=== PATIENT | female | born 1955 | race Caucasian/White ===

== ENCOUNTER → 2017-06-12 12:39 | Outpatient (CLI) | payer MEDICARE, SELFPAY ==
[2017-06-12 13:03] LABS: Basophils # 0.1 K/mm3 (0-0.2); Eosinophils # 0.2 K/mm3 (0.0-0.4); Eosinophils % 2.9 % (0.1-12.0); Hemoglobin 12.9 g/dL (12.2-16.2); Lymphocytes # 1.7 K/mm3 (0.7-4.5); Lymphocytes % 26.8 K/mm3 (10-50); Mean Corpuscular HGB Conc 33.8 g/dL (31.8-35.4); Mean Corpuscular Hemoglobin 30.5 pg (27.0-31.2); Mean Platelet Volume 7.8 fl (7.4-10.4); Monocytes # 0.3 K/mm3 (0.1-1.0); Monocytes % 4.5 % (1.7-9.3); Neutrophils # 4.1 K/mm3 (1.8-7.8); Neutrophils % 64.9 % (37.0-80.0); Platelet Count 270 K/mm3 (142-424); Red Blood Count 4.22 M/mm3 (4.20-5.40); Red Cell Distribution Width 13.1 % (11.5-17.5); White Blood Count 6.3 K/mm3 (4.8-10.8)
[2017-06-12 14:07] LABS: Alanine Aminotransferase 29 U/L (12-78); Albumin Level 3.7 gm/dL (3.4-5.0); Albumin/Globulin Ratio 1.1 (1.1-1.8); Alkaline Phosphatase 114 U/L (46-116); Anion Gap 10.7 mEq/L (5-15); Aspartate Amino Transferase 17 U/L (15-37); Bilirubin,Total 0.3 mg/dL (0.2-1.0); Blood Urea Nitrogen 16 mg/dL (7-18); Calcium 8.6 mg/dL (8.5-10.1); Carbon Dioxide 29 mmol/L (21.0-32.0); Chloride 108 mmol/L (98-107); Chol/HDL Ratio 2.8 (1-3.5); Cholesterol 206 mg/dL (140-200); Creatinine,Serum 0.66 mg/dL (0.55-1.02); Estimated Glomerular Filt Rate 91 ml/min (>60); GFR (African American) 111 ML/MIN (>60); Globulin 3.3 gm/dl (1.3-3.2); Glucose 93 mg/dL (74-106); HDL Cholesterol 74 mg/dL (29-89); LDL Cholesterol 124 mg/dL (0-130); Potassium 3.7 mmoL/L (3.5-5.1); Sodium 144 mmol/L (136-145); Thyroid Stimulating Hormone 1.95 uIU/ml (0.358-3.740); Triglycerides 39 mg/dL (30-200); VLDL Cholesterol 8 mg/dL (0-40)
[2017-06-13 11:13] LABS: Vitamin B12 373 pg/mL (232-1245); Vitamin D 25 Hydroxy 30.3 ng/mL (30.0-100.0)
== END ==
PROVIDERS: PCP Nurse Practitioner Family; Visit Provider Nurse Practitioner Family
DX: R53.83 Other fatigue (principal); E53.8 Deficiency of other specified B group vitamins; Z00.00 Encounter for general adult medical examination without abnormal findings
CPT/HCPCS: 36415; 80053; 80061; 82607; 82652; 84443; 85025

== ENCOUNTER → 2017-06-17 09:27 | Outpatient (CLI) | payer MEDICARE, SELFPAY ==
--- NOTE | 2017-06-17 09:34 | MM_ITS ---
MM Dig screening mamm BI w/CAD CAD Screening COMPARISON: None, there have been previous mammograms at [facility] but they're not available for comparison at this time INDICATION: There is no personal or family history of breast cancer TECHNIQUE: Standard CC and MLO images were obtained. R2 CAD reviewed. FINDINGS: Mild scattered fibroglandular densities are seen in the subareolar regions of both breast and the findings are bilateral and symmetrical. There is no suspicious lesion and no suspicious microcalcifications. IMPRESSION: Fibrofatty parenchyma with no suspicious lesion seen BI-RADS Category: 1 Negative RECOMMENDED FOLLOW-UP: 1YR - 1 YEAR FOLLOW-UP (A letter has been sent to the patient regarding results of the study.)
== END ==
PROVIDERS: PCP Nurse Practitioner Family; Visit Provider Nurse Practitioner Family
DX: Z12.31 Encounter for screening mammogram for malignant neoplasm of breast (principal)
CPT/HCPCS: 77067

== ENCOUNTER 2017-07-30 11:32 | Emergency (ER) | payer MEDICARE, SELFPAY ==
[2017-07-30 11:43] VITALS: BP 116/60; PULSE 106; RESP 20; TEMP 37.2; O2SAT 97; BMI 18.8
[2017-07-30 11:54] LABS: UTC Strep Screen (Rapid) Negative (Negative)
[2017-07-30 12:02] LABS: UTC Influenza A Antigen Negative (Negative); UTC Influenza B Antigen Negative (Negative)
--- NOTE | 2017-07-30 12:06 | HMH.EDUTC ---
[facility] Disposition Clinical Impression: Viral upper respiratory illness Disposition: Home, Self-Care Condition on Discharge: Good Instructions: DI for Viral Upper Respiratory Infection -- Adult Additional Instructions: * No sign of bacterial infection. Likely viral. Virus can take 7-14 days to run their course * Nasal Saline to remove nasal drainage and help with nasal congestion. Hard to eat, drink, sleep with nasal congestion so important to keep nose cleaned out * Monitor Temp. Tylenol every 4 hours as needed no more then 5 times a day or 4000mg in 24 hours and/or ibuprofen every 6 hours as needed no more then 3200mg in 24 hours (as long as your primary care doctor has told you that it is ok to take both) for fever/aches/pain. ER if fever no less than 101 despite tylenol and ibuprofen * Encourage fluids, water, gatorade, powerade, pedialyte if /toddler/child * warm salt water gargles * warm fluids * sore throat lozenges * sleep elevated * humidifier/vaporizer * Bromfed may cause drowsiness. Know how it effects you (or your child) before driving, caring for small children, or sending your child to school. No other antihistamines/allergy medications while taking bromfed. * * Your throat swab was sent for culture. Those results are typically sent to your primary care. Be sure to follow up in 2-3 days if no improvement so they can review those results and treat if necessary. If you don't have primary care, I recommend you get one but in the mean time, you will have to return to a walk in clinic. Prescriptions: Brompheniramine/Pseudoephed/Dm [Bromfed DM Cough Syrup 5mL] 10 ml PO QID PRN #240 ml PRN Reason: Cough Referrals: Daya Ricardo APRN [Primary Care Provider] - (Follow up IMMEDIATELY for new or worsening symptoms OR no noticeable improvement over the next 72 hours. 911 for difficulty breathing or swallowing) Time of Disposition: 12:15 Medical Decision Making - Marc Inquiry Pt receiving controlled substance: No Vital Signs: 07/30/17 11:43 Temperature 99 F Temperature Source Temporal Artery Scan Pulse Rate [Brachial] 106 H Respiratory Rate 20 Blood Pressure [Right Arm] 116/60 Blood Pressure Mean [Right Arm] 78 02 Sat by Pulse Oximetry 97 - Lab Data Lab results reviewed: Yes: I reviewed the patient's lab results. Lab Results 07/30/17 11:48: Influenza Type A Ag Negative, Influenza Type B Ag Negative, Strep Scn Rapid Clinic Negative Orders (Tests/Meds): ORDERS Category Date Time Status Strep Screen Confirmation Stat Micro 07/30/17 11:48 Received [facility] HPI - General Stated complaint: Coughing;Sore Throat; Earache Time Seen by Provider: 07/30/17 12:07 Mode of Arrival: Ambulatory Source of Information: Patient Limitations: No Limitations Description of Symptoms (Recalled from Triage Doc. by RN): PAST FEW DAYS BODY ACHES, CHILLS, HOARSE, SORE THROAT, NASAL DRAINAGE, COUGHING THAT GETS WORSE AT NIGHT. HEENT Symptoms (Recalled from RN notes): Yes Resp Symptoms (Recalled from RN notes): Yes Skin Symptoms (Recalled from RN notes): No MS Symptoms (Recalled from RN notes): No Functional Status (Recalled from RN notes): NA - History of Present Illness Provider Complaint: c/o nonprod cough, aches, chills, PND, sore throat, congestion. Started 2-3 days ago. Cough worse at night. No known sick contacts. tylenol arthritis helps w/ aches and feeling feverish. Hasn't checked temp. - Related Data Previous Rx's Medication Instructions Recorded Brompheniramine/Pseudoephed/Dm 10 ml PO QID PRN #240 ml 07/30/17 [Bromfed DM Cough Syrup 5mL] Allergies Allergy/AdvReac Type Severity Reaction Status Date / Time From [facility] Allergy Severe S-DIFF. Uncoded 04/29/17 15:02 BREATHING CODEINE Allergy Intermediate I-RASH Uncoded 04/29/17 15:02 - Worker's Comp Is this a Worker's Comp case?: No [facility] History I have reviewed the patient's past medical history: Yes Medical History: Denies::
--- NOTE | 2017-07-30 12:13 | ED_ITS ---
[facility] [place] Impression: Viral upper respiratory illness Disposition: Home, Self-Care Condition on Discharge: Good Instructions: DI for Viral Upper Respiratory Infection -- Adult Additional Instructions: * No sign of bacterial infection. Likely viral. Virus can take 7-14 days to run their course * Nasal Saline to remove nasal drainage and help with nasal congestion. Hard to eat, drink, sleep with nasal congestion so important to keep nose cleaned out * Monitor Temp. Tylenol every 4 hours as needed no more then 5 times a day or 4000mg in 24 hours and/or ibuprofen every 6 hours as needed no more then 3200mg in 24 hours (as long as your primary care doctor has told you that it is ok to take both) for fever/aches/pain. ER if fever no less than 101 despite tylenol and ibuprofen * Encourage fluids, water, gatorade, powerade, pedialyte if infant/toddler/ child * warm salt water gargles * warm fluids * sore throat lozenges * sleep elevated * humidifier/vaporizer * Bromfed may cause drowsiness. Know how it effects you (or your child) before driving, caring for small children, or sending your child to school. No other antihistamines/allergy medications while taking bromfed. * * Your throat swab was sent for culture. Those results are typically sent to your primary care. Be sure to follow up in 2-3 days if no improvement so they can review those results and treat if necessary. If you don't have primary care , I recommend you get one but in the mean time, you will have to return to a walk in clinic. Prescriptions: Brompheniramine/Pseudoephed/Dm [Bromfed DM Cough Syrup 5mL] 10 ml PO QID PRN # 240 ml PRN Reason: Cough Referrals: Daya Ricardo APRN [Primary Care Provider] - (Follow up IMMEDIATELY for new or worsening symptoms OR no noticeable improvement over the next 72 hours. 911 for difficulty breathing or swallowing) Time of Disposition: 12:15 Medical Decision Making - Marc Inquiry Pt receiving controlled substance: No Vital Signs: 07/30/17 11:43 Temperature 99 F Temperature Source Temporal Artery Scan Pulse Rate [Brachial] 106 H Respiratory Rate 20 Blood Pressure [Right Arm] 116/60 Blood Pressure Mean [Right Arm] 78 02 Sat by Pulse Oximetry 97 - Lab Data Lab results reviewed: Yes: I reviewed the patient's lab results. Lab Results 07/30/17 11:48: Influenza Type A Ag Negative, Influenza Type B Ag Negative, Strep Scn Rapid Clinic Negative Orders (Tests/Meds): ORDERS Category Date Time Status Strep Screen Confirmation Stat Micro 07/30/17 11:48 Received [facility] [place] - General Stated complaint: Coughing;Sore Throat; Earache Time Seen by Provider: 07/30/17 12:07 Mode of Arrival: Ambulatory Source of Information: Patient Limitations: No Limitations Description of Symptoms (Recalled from Triage Doc. by RN): PAST FEW DAYS BODY ACHES, CHILLS, HOARSE, SORE THROAT, NASAL DRAINAGE, COUGHING THAT GETS WORSE AT NIGHT. HEENT Symptoms (Recalled from RN notes): Yes Resp Symptoms (Recalled from RN notes): Yes Skin Symptoms (Recalled from RN notes): No MS Symptoms (Recalled from RN notes): No Functional Status (Recalled from RN notes): NA - History of Present Illness Provider Complaint: c/o nonprod cough, aches, chills, PND, sore throat, congestion. Started 2-3 days ago. Cough worse at night. No known sick contacts. tylenol arthritis helps w/ aches and feeling feverish. Hasn't checked temp. - Related Data Previous Rx's
[2017-07-30 12:16] VITALS: BP 116/64; PULSE 76; RESP 18; TEMP 37
== END 2017-07-30 12:22 | disposition home or self-care (01) ==
PROVIDERS: Emergency Provider Nurse Practitioner Family; PCP Nurse Practitioner Family
DX: J06.9 Acute upper respiratory infection, unspecified (principal); Z88.6 Allergy status to analgesic agent
CPT/HCPCS: G0463; 87804; 87880; 99202

== ENCOUNTER → 2018-03-16 13:14 | Outpatient (CLI) | payer MEDICARE, SELFPAY ==
[2018-03-16 13:55] LABS: Basophils # 0.1 K/mm3 (0-0.2); Basophils % 1.2 % (0.1-2.0); Eosinophils # 0.3 K/mm3 (0.0-0.4); Eosinophils % 3.7 % (0.1-12.0); Hemoglobin 13.2 g/dL (12.2-16.2); Lymphocytes # 1.7 K/mm3 (0.7-4.5); Lymphocytes % 25.2 K/mm3 (10-50); Mean Corpuscular HGB Conc 32.3 g/dL (31.8-35.4); Mean Corpuscular Hemoglobin 30.7 pg (27.0-31.2); Mean Corpuscular Volume 94.9 fl (81-99); Mean Platelet Volume 8.3 fl (7.4-10.4); Monocytes # 0.3 K/mm3 (0.1-1.0); Monocytes % 4.3 % (1.7-9.3); Neutrophils # 4.4 K/mm3 (1.8-7.8); Neutrophils % 65.6 % (37.0-80.0); Platelet Count 298 K/mm3 (142-424); Red Blood Count 4.32 M/mm3 (4.20-5.40); Red Cell Distribution Width 13.1 % (11.5-17.5); White Blood Count 6.7 K/mm3 (4.8-10.8)
[2018-03-16 19:42] LABS: Alanine Aminotransferase 17 U/L (12-78); Albumin Level 3.7 gm/dL (3.4-5.0); Albumin/Globulin Ratio 1.1 (1.1-1.8); Alkaline Phosphatase 131 U/L (46-116); Anion Gap 13.4 mEq/L (5-15); Aspartate Amino Transferase 18 U/L (15-37); Bilirubin,Total 0.3 mg/dL (0.2-1.0); Blood Urea Nitrogen 22 mg/dL (7-18); Calcium 8.9 mg/dL (8.5-10.1); Carbon Dioxide 27 mmol/L (21.0-32.0); Chloride 105 mmol/L (98-107); Creatinine,Serum 0.62 mg/dL (0.55-1.02); Estimated Glomerular Filt Rate 98 ml/min (>60); GFR (African American) 118 ML/MIN (>60); Globulin 3.5 gm/dl (1.3-3.2); Glucose 87 mg/dL (74-106); Potassium 4.4 mmoL/L (3.5-5.1); Sodium 141 mmol/L (136-145); Thyroid Stimulating Hormone 1.64 uIU/ml (0.358-3.740); Total Protein,Serum 7.2 gm/dL (6.4-8.2)
[2018-03-17 08:34] LABS: Iron 103 ug/dL (27-139); UIBC 181 ug/dL (118-369)
[2018-03-18 12:37] LABS: Iron Saturation 36 % (15-55); Vitamin D 25 Hydroxy 32.7 ng/mL (30.0-100.0)
== END ==
PROVIDERS: PCP Physician Assistant; Visit Provider Physician Assistant
DX: M79.7 Fibromyalgia (principal); D64.9 Anemia, unspecified; D51.9 Vitamin B12 deficiency anemia, unspecified; R91.1 Solitary pulmonary nodule; R10.11 Right upper quadrant pain
CPT/HCPCS: 80053; 82652; 83540; 83550; 84436; 84443; 85025

== ENCOUNTER → 2018-03-26 08:58 | Outpatient (CLI) | payer MEDICARE, SELFPAY ==
--- NOTE | 2018-03-26 09:00 | US_ITS ---
US abdomen limited History:Right upper quadrant pain Ordering Physician:JENNY Torres Patient Age: 62 years Comparison:None Findings: Pancreas:Unremarkable. No obvious mass or abnormal fluid collection. No ductal dilatation Liver:No focal liver lesions demonstrated. Homogeneous echogenicity. No intrahepatic biliary ductal dilatation evident Right Kidney:Unremarkable. Normal size and echogenicity. No hydronephrosis Gallbladder:15 mm stone is present in the fundus of the gallbladder. No gallbladder wall thickening, pericholecystic fluid, or biliary dilatation is evident. Impression:Cholelithiasis
--- NOTE | 2018-03-26 09:00 | CT_ITS ---
CT chest w con HISTORY: ITS.REASON: SHAY nodule ORDERING PHYSICIAN: JENNY Torres PATIENT AGE: 62 years COMPARISON: 10/01/2017 TECHNIQUE: Axial images obtained following the administration of 75 mL of Isovue 370 . Sagittal, and coronal reformatted images are also generated and reviewed. All CT scans at the facility use one or more dose reduction, viz: automated exposure control, ma/kV adjustment per patient size (including targeted exams where dose is matched to indication, i.e. head), or iterative reconstruction technique. FINDINGS: No mediastinal or hilar mass or adenopathy. No evidence of aortic aneurysm or central pulmonary embolus. There are scattered bilateral pulmonary nodular opacities most of which are calcified or partially calcified. Biapical fibronodular changes are present. 4 mm noncalcified nodule in the right upper lobe and a 5 mm noncalcified nodule in the right middle lobe. There are atelectatic or fibrotic changes in the right middle lobe, right upper lobe, and superior segment right lower lobe. There is a bilobular 6 mm nodule right lower lobe noncalcified. Noncalcified 4 mm nodules present in the left lower lobe. No effusions are evident. Upper abdominal images demonstrates a 8 mm hypodense lesion of the right hepatic lobe nonspecific. No acute bony anomalies. Incidental note is made of mild stenosis of the ostium of the celiac and SMA arteries. IMPRESSION: 1. There are multiple bilateral pulmonary nodular opacities most of which are calcified or partially calcified. Several noncalcified pulmonary nodules are also present. These may very well be benign. Six-month follow-up is suggested 2. Scattered areas of parenchymal fibrosis/atelectatic change with biapical fibronodular changes
== END ==
PROVIDERS: PCP Physician Assistant; Visit Provider Physician Assistant
DX: R10.11 Right upper quadrant pain (principal); R91.8 Other nonspecific abnormal finding of lung field
CPT/HCPCS: 71260; 76705; Q9967

== ENCOUNTER → 2018-04-21 11:28 | Outpatient (CLI) | payer MEDICARE, SELFPAY ==
[2018-04-21 11:47] LABS: Basophils # 0.1 K/mm3 (0-0.2); Eosinophils # 0.2 K/mm3 (0.0-0.4); Eosinophils % 3.5 % (0.1-12.0); Hematocrit 40.4 % (37.0-47.0); Hemoglobin 13.5 g/dL (12.2-16.2); Lymphocytes % 29.8 % (10-50); Mean Corpuscular HGB Conc 33.5 g/dL (31.8-35.4); Mean Corpuscular Hemoglobin 30.9 pg (27.0-31.2); Mean Corpuscular Volume 92.4 fl (81-99); Mean Platelet Volume 7.6 fl (7.4-10.4); Monocytes # 0.3 K/mm3 (0.1-1.0); Monocytes % 4.6 % (1.7-9.3); Neutrophils # 4.2 K/mm3 (1.8-7.8); Neutrophils % 61.1 % (37.0-80.0); Platelet Count 243 K/mm3 (142-424); Red Blood Count 4.37 M/mm3 (4.20-5.40); Red Cell Distribution Width 12.8 % (11.5-17.5); White Blood Count 6.8 K/mm3 (4.8-10.8)
[2018-04-21 12:32] LABS: Alanine Aminotransferase 18 U/L (12-78); Albumin Level 3.6 gm/dL (3.4-5.0); Albumin/Globulin Ratio 1.1 (1.1-1.8); Alkaline Phosphatase 125 U/L (46-116); Anion Gap 14.7 mEq/L (5-15); Aspartate Amino Transferase 12 U/L (15-37); Bilirubin,Total 0.2 mg/dL (0.2-1.0); Blood Urea Nitrogen 27 mg/dL (7-18); Calcium 8.8 mg/dL (8.5-10.1); Carbon Dioxide 26 mmol/L (21.0-32.0); Chloride 107 mmol/L (98-107); Creatinine,Serum 0.85 mg/dL (0.55-1.02); Estimated Glomerular Filt Rate 68 ml/min (>60); GFR (African American) 82 ML/MIN (>60); Globulin 3.3 gm/dl (1.3-3.2); Glucose 79 mg/dL (74-106); Potassium 3.7 mmoL/L (3.5-5.1); Sodium 144 mmol/L (136-145); Total Protein,Serum 6.9 gm/dL (6.4-8.2)
== END ==
PROVIDERS: Visit Provider Surgery
DX: K80.20 Calculus of gallbladder without cholecystitis without obstruction (principal)
CPT/HCPCS: 36415; 80053; 85025; 93005

== ENCOUNTER → 2018-06-15 11:18 | Outpatient (CLI) | payer MEDICARE, SELFPAY ==
--- NOTE | 2018-06-15 11:21 | XR_ITS ---
XR chest 2V HISTORY: ITS.REASON: persistent cough ORDERING PHYSICIAN: JENNY Torres PATIENT AGE: 62 years COMPARISON: 10/01/2017 FINDINGS: The cardiomediastinal silhouette and pulmonary vascularity are within normal limits. Chronic changes noted with biapical pleural thickening and hyperinflation. No lobar consolidation or collapse. No acute bony findings. IMPRESSION: COPD, no acute finding
== END ==
PROVIDERS: PCP Physician Assistant; Visit Provider Physician Assistant
DX: R05 Cough (principal); R09.89 Other specified symptoms and signs involving the circulatory and respiratory systems
CPT/HCPCS: 71046

== ENCOUNTER → 2018-09-09 08:06 | Outpatient (CLI) | payer MEDICARE, SELFPAY ==
--- NOTE | 2018-09-09 08:11 | US_ITS ---
US abdomen limited History:Right upper quadrant pain Ordering Physician:JENNY Lpoez Patient Age: 63 years Comparison:05/26/2017 Findings: Pancreas:Unremarkable. No obvious mass or abnormal fluid collection. No ductal dilatation Liver:Unremarkable. No obvious mass or abnormal fluid collection. No ductal dilatation. There is a small area of increased echogenicity within the common bile duct. No ductal dilatation. However, one cannot exclude the possibility of a small stone. Right Kidney:Unremarkable. Normal size and echogenicity. No hydronephrosis Gallbladder: Status post cholecystectomy. Common bile duct 2 mm. IMPRESSION: 1. Status post cholecystectomy. 2. Normal size common bile duct with small focal area of increased echogenicity within the common bile duct raising the question of a small stone or sludge. MRCP may be of further value.
== END ==
PROVIDERS: PCP Physician Assistant; Visit Provider Physician Assistant
DX: R10.11 Right upper quadrant pain (principal)
CPT/HCPCS: 76705

== ENCOUNTER → 2018-09-17 08:35 | Outpatient (CLI) | payer MEDICARE, SELFPAY ==
--- NOTE | 2018-09-17 08:37 | MR_ITS ---
MR abdomen wo con, MR 3-d myelogram/MRCP CLINICAL INDICATION: Right upper quadrant pain, prior cholecystectomy, diarrhea ITS.REASON: MRCP ORDERING PHYSICIAN: JENNY Lopez PATIENT AGE: 63 years Comparison: None TECHNIQUE: Routine multiplanar multiecho sequences are performed without contrast with MRCP sequences FINDINGS: There is a small T2 hyperintensity involving the hepatic dome laterally at 8 mm. This is categorized. The remaining liver has an unremarkable appearance. No intrahepatic ductal dilatation is evident., Adrenal glands, and pancreas have an unremarkable appearance no renal abnormality apparent. There has been prior cholecystectomy. No biloma or abscess apparent. Small cyst is present along the lower pole the left kidney at 8 mm MRCP images show slightly generous common bile duct measured at 8 mm. No filling defects are evident within the common duct. Pancreatic duct also has an unremarkable appearance. IMPRESSION: 1. Status post cholecystectomy 2. No evidence of common duct stone. Common bile duct is slightly prominent but may be related to ectasia from previous cholecystectomy. 3. Indeterminate T2 hyperintensity in the hepatic dome. This may be better evaluated with CT if clinically desired
== END ==
PROVIDERS: PCP Physician Assistant; Visit Provider Physician Assistant
DX: R10.11 Right upper quadrant pain (principal)
CPT/HCPCS: 74181; 76376

== ENCOUNTER → 2018-10-12 13:24 | Outpatient (CLI) | payer MEDICARE, SELFPAY ==
--- NOTE | 2018-10-12 13:26 | CT_ITS ---
CT chest wo con HISTORY: Follow-up pulmonary nodule ITS.REASON: pulmonary nodules/ 6 mth f/u ORDERING PHYSICIAN: JENNY Lopez PATIENT AGE: 63 years COMPARISON: 03/26/2018 Technique: Axial images obtained. Sagittal, and coronal reformatted images are also generated and reviewed. All CT scans at the facility use one or more dose reduction, viz: automated exposure control, ma/kV adjustment per patient size (including targeted exams where dose is matched to indication, i.e. head), or iterative reconstruction technique. FINDINGS No mediastinal or hilar adenopathy. Coronary artery calcifications are present. There are changes of COPD with scattered calcified nodules and scarring once again noted with hyperinflation. There are scattered parenchymal opacities noted which are stable. No new suspicious nodules identified. No infiltrates or effusions. IMPRESSION: 1. Overall stable CT appearance of the chest 2. Scattered calcified and noncalcified pulmonary nodules once again noted which do not appear significantly changed along with COPD and scattered areas of scarring. Recommend [address] follow-up
== END ==
PROVIDERS: PCP Physician Assistant; Visit Provider Physician Assistant
DX: R91.8 Other nonspecific abnormal finding of lung field (principal)
CPT/HCPCS: 71250

== ENCOUNTER 2020-02-19 10:51 | Emergency (ER) | payer MEDICARE, SELFPAY ==
[2020-02-19 11:15] VITALS: BP 115/50; PULSE 76; RESP 20; TEMP 36.8; O2SAT 96; BMI 20.5
--- NOTE | 2020-02-19 11:28 | HMH.EDUTC ---
[facility] [place] Disposition Clinical Impression: Laryngitis Disposition: Home, Self-Care Condition on Discharge: Good Instructions: DI for Laryngitis Additional Instructions: start antibiotics today be sure to take it as ordered with the full length of time although you should start feeling better in 24-48 hours. Change toothbrush and toothpaste 24-48 hours after starting antibiotics Tylenol or Motrin as needed for fever or pain Encourage fluids, water, Gatorade, Powerade, try cold fluids, popsicles, ice cream will make it feel better You are contagious for 24 hours. Avoid kissing anyone, no eating or drinking after anyone. You are contagious. Follow-up the ER for new or worsening symptoms or no noticeable improvement over the next 24-48 hours. Follow-up with PCP this week. Prescriptions: predniSONE [Prednisone 20mg Tab] 20 mg PO BID #10 tab Prescription Printed Azithromycin [Zithromax 250mg tab] 250 mg PO DIRECTED #6 tab Prescription Printed Referrals: PCP,No [Primary Care Provider] - Time of Disposition: 11:47 Medical Decision Making - Marc Inquiry Pt receiving controlled substance: No Vital Signs: 02/19/20 11:15 Temperature 98.2 F Temperature Source Oral Pulse Rate [Left Brachial] 76 Respiratory Rate 20 Blood Pressure [Left Arm] 115/50 L Blood Pressure Mean [Left Arm] 71 Blood Pressure Source [Left Arm] Automatic Cuff Blood Pressure Position [Left Arm] Sitting 02 Sat by Pulse Oximetry 96 Oxygen Delivery Method Room Air [facility] [place] HPI - General Chief complaint: Urgent [facility] Stated complaint: loss voice Time Seen by Provider: 02/19/20 11:28 Mode of Arrival: Ambulatory Source of Information: Patient Limitations: No Limitations Description of Symptoms (Recalled from Triage Doc. by RN): PATIENT C/O SCRATCHY THROAT AND LOST VOICE SINCE YESTERDAY HEENT Symptoms (Recalled from RN notes): Yes Resp Symptoms (Recalled from RN notes): No Skin Symptoms (Recalled from RN notes): No MS Symptoms (Recalled from RN notes): No Functional Status (Recalled from RN notes): WNL - History of Present Illness Provider Complaint: 64 yr old female presents for sore throat, and lost voice since yesterday, pt states grandchild also sick. denies any other symptoms. - Related Data Previous Rx's Medication Instructions Recorded Azithromycin [Zithromax 250mg 250 mg PO DIRECTED #6 tab 02/19/20 tab] predniSONE [Prednisone 20mg 20 mg PO BID #10 tab 02/19/20 Tab] Allergies Allergy/AdvReac Type Severity Reaction Status Date / Time amoxicillin [From Augmentin] Allergy Verified 02/19/20 11:18 cimetidine [From Tagamet] Allergy Verified 08/11/18 11:10 clavulanic acid Allergy Verified 02/19/20 11:18 [From Augmentin] codeine Allergy Verified 08/11/18 11:10 Penicillins Allergy Verified 08/11/18 11:10 - Worker's Comp Is this a Worker's Comp case?: No [facility] History - Hepatitis A Screen Drug use history?: No High risk sexual behaviors?: No History of sexually transmitted infection?: No Currently employed?: No Childcare worker?: No Do you have indoor plumbing?: Yes Do you have electricity?: Yes Attestation statement:: This patient has been screened for Hepatitis A risk factors. I have reviewed the patient's past medical history: Yes Medical History: Reports:: Anxiety, Depression Denies:: Cancer, Chronic Obstructive Pulmonary Disease (COPD), Diabetes Mellitus Type 1, Diabetes Mellitus Type 2, Hypertension, MRSA, Seizures Other Medical History: Denies: Blood Transfusion Reaction Laterality Cases: Bilateral: Tonsillectomy Other Surgeries: Yes: No Previous Surgery, Cholecystectomy Amputation: No Fractures: No - Social History Smoking Status: Never smoker Alcohol Intake: never Substance Use Type: denies use Occupational Status: other - Psychiatric History Pschychiatric History:: Reports:: Anxiety, Depression Family Hx:: No significant family history ROS Obtain
[2020-02-19 11:49] VITALS: BP 115/50; PULSE 76; RESP 20; TEMP 36.8; O2SAT 96
[2020-02-19 19:05] LABS: UTC Strep Screen (Rapid) Negative (Negative)
== END 2020-02-19 11:53 | disposition home or self-care (01) ==
PROVIDERS: Emergency Provider Nurse Practitioner Family; PCP Physician Assistant
DX: J04.0 Acute laryngitis (principal); F41.8 Other specified anxiety disorders; Z88.0 Allergy status to penicillin; Z88.5 Allergy status to narcotic agent
CPT/HCPCS: G0463; 87880; 99201

== ENCOUNTER 2020-04-27 14:18 | Emergency (ER) | payer MEDICARE, SELFPAY ==
[2020-04-27 14:40] VITALS: BP 102/64; PULSE 77; RESP 18; TEMP 36.9; O2SAT 96; BMI 20.5
--- NOTE | 2020-04-27 15:05 | HMH.EDUTC ---
[facility] [place] Impression: URI (upper respiratory infection) Qualifiers: URI type: unspecified URI Qualified Code(s): J06.9 - Acute upper respiratory infection, unspecified Disposition: Home, Self-Care Condition on Discharge: Good Instructions: Sore Throat, DI for Cough -- Adult Additional Instructions: *Monitor Temp, Over the counter Motrin or Tylenol as directed/as needed Tylenol every 4 hours and Motrin every 6 hours (as long as your family doctor has told you that you can take it) for fever or pain. and straight to ER if unable to lower temp less than 101.0 after medication given *Warm salt water gargles may help to soothe the throat *Throat Lozenges *Warm fluids like tea with honey may help to soothe the throat *Sleep elevated *Humidifier/Vaporizer Follow up IMMEDIATELY for new or worsening symptoms or no Noticeable improvement over the next 48-72 hours. 911 for difficulty breathing or swallowing Prescriptions: methylPREDNISolone [Medrol 4mg tab] 4 mg PO DIRECTED #21 tab Transmission Status: Pending to [id number] Azithromycin [Z-Lai 250mg Tab] 250 mg PO DIRECTED #6 tab Transmission Status: Pending to [id number] Referrals: [facility] [Primary Care Provider] - Medical Decision Making - Marc Inquiry Pt receiving controlled substance: No Marc was queried for this patient: No Vital Signs: 04/27/20 14:40 Temperature 98.4 F Temperature Source Oral Pulse Rate [Right Brachial] 77 Respiratory Rate 18 Blood Pressure [Right Arm] 102/64 L Blood Pressure Mean [Right Arm] 76 Blood Pressure Source [Right Arm] Automatic Cuff Blood Pressure Position [Right Arm] Sitting 02 Sat by Pulse Oximetry 96 Oxygen Delivery Method Room Air Medical Decision Narrative: Patient states that she has taken azithromycin and medrol dose pack before without complications or reactions [facility] [place] - General Stated complaint: lost voice body aches Time Seen by Provider: 04/27/20 15:06 Mode of Arrival: Ambulatory Source of Information: Patient Limitations: No Limitations Description of Symptoms (Recalled from Triage Doc. by RN): PATIENT C/O SORE THROAT AND LOST VOICE SINCE LAST NIGHT HEENT Symptoms (Recalled from RN notes): Yes Resp Symptoms (Recalled from RN notes): No Skin Symptoms (Recalled from RN notes): No MS Symptoms (Recalled from RN notes): No Functional Status (Recalled from RN notes): WNL - History of Present Illness Provider Complaint: Patient states that she has been having sore and scratchy throat for several days and today she woke up and was unable to talk and still having sore scratchy throat so she come in to get checked - Related Data Previous Rx's Medication Instructions Recorded Azithromycin [Z-Lai 250mg Tab] 250 mg PO DIRECTED #6 tab 04/27/20 methylPREDNISolone [Medrol 4mg 4 mg PO DIRECTED #21 tab 04/27/20 tab] Allergies Allergy/AdvReac Type Severity Reaction Status Date / Time amoxicillin [From Augmentin] Allergy Verified 02/19/20 11:18 cimetidine [From Tagamet] Allergy Verified 08/11/18 11:10 clavulanic acid Allergy Verified 02/19/20 11:18 [From Augmentin] codeine Allergy Verified 08/11/18 11:10 Penicillins Allergy Verified 08/11/18 11:10 - Worker's Comp Is this a Worker's Comp case?: No [facility] History - Hepatitis A Screen Drug use history?: No High risk sexual behaviors?: No History of sexually transmitted infection?: No Currently employed?: No Childcare worker?: No Do you have indoor plumbing?: Yes Do you have electricity?: Yes Attestation statement:: This patient has been screened for Hepatitis A risk factors. I have reviewed the patient's past medical history: Yes Medical History: Reports:: Anxiety, Depression Denies:: Cancer, Chronic Obstructive Pulmonary Disease (COPD), Diabetes Mellitus Type 1, Diabetes Mellitus Type 2, Hypertension, MRSA, Seizures Other Medical History: Denies: Blood Transfusi
[2020-04-27 15:08] VITALS: BP 102/64; PULSE 77; RESP 18; TEMP 36.9; O2SAT 96
== END 2020-04-27 15:10 | disposition home or self-care (01) ==
PROVIDERS: Emergency Provider Nurse Practitioner
DX: J06.9 Acute upper respiratory infection, unspecified (principal); F41.8 Other specified anxiety disorders; Z88.0 Allergy status to penicillin
CPT/HCPCS: G0463; 99201

== ENCOUNTER 2020-05-20 16:11 | Emergency (ER) | payer MEDICARE, SELFPAY ==
[2020-05-20 16:25] VITALS: BP 121/83; PULSE 83; RESP 19; TEMP 36.8; O2SAT 100; BMI 20.5
--- NOTE | 2020-05-20 16:41 | HMH.EDUTC ---
[facility] [place] Clinical [place]ression: Urinary frequency Disposition: Home, Self-Care Condition on Discharge: Good Instructions: DI for Urinary Tract Infection (UTI) Additional Instructions: Follow up with with your Family Doctor if symptoms continue or immediately if any worsening of symptoms Return if needed Straight to ER if any life threatening symptoms Referrals: Virginia Barbosa PA [Primary Care Provider] - As needed Time of Disposition: 16:49 Medical Decision Making - Marc Inquiry Pt receiving controlled substance: No Marc was queried for this patient: No Vital Signs: 05/20/20 16:25 Temperature 98.2 F Temperature Source Oral Pulse Rate [Right Brachial] 83 Respiratory Rate 19 Blood Pressure [Right Arm] 121/83 Blood Pressure Mean [Right Arm] 95 Blood Pressure Source [Right Arm] Automatic Cuff Blood Pressure Position [Right Arm] Sitting 02 Sat by Pulse Oximetry 100 Oxygen Delivery Method Room Air - Lab Data Lab results reviewed: Yes: I reviewed the patient's lab results. [facility] [place] - General Stated complaint: frequency,feel bad Time Seen by Provider: 05/20/20 16:41 Mode of Arrival: Ambulatory Source of Information: Patient Limitations: No Limitations Description of Symptoms (Recalled from Triage Doc. by RN): PATIENT C/O URINARY FREQUENCY X 3 DAYS HEENT Symptoms (Recalled from RN notes): No Resp Symptoms (Recalled from RN notes): No Skin Symptoms (Recalled from RN notes): No MS Symptoms (Recalled from RN notes): No Functional Status (Recalled from RN notes): WNL - History of Present Illness Provider Complaint: Patient state that she feels like she is having urinary frequency for the last 3 days States that she was worried that she may have a UTI so she come in to get checked Denies fever denies body aches or abdominal pain - Related Data Previous Rx's Medication Instructions Recorded Azithromycin [Z-Lai 250mg Tab] 250 mg PO DIRECTED #6 tab 04/27/20 methylPREDNISolone [Medrol 4mg 4 mg PO DIRECTED #21 tab 04/27/20 tab] Allergies Allergy/AdvReac Type Severity Reaction Status Date / Time amoxicillin [From Augmentin] Allergy Verified 02/19/20 11:18 cimetidine [From Tagamet] Allergy Verified 08/11/18 11:10 clavulanic acid Allergy Verified 02/19/20 11:18 [From Augmentin] codeine Allergy Verified 08/11/18 11:10 Penicillins Allergy Verified 08/11/18 11:10 - Worker's Comp Is this a Worker's Comp case?: No [facility] History - Hepatitis A Screen Drug use history?: No High risk sexual behaviors?: No History of sexually transmitted infection?: No Currently employed?: No Childcare worker?: No Do you have indoor plumbing?: Yes Do you have electricity?: Yes Attestation statement:: This patient has been screened for Hepatitis A risk factors. I have reviewed the patient's past medical history: Yes Medical History: Reports:: Anxiety, Depression Denies:: Cancer, Chronic Obstructive Pulmonary Disease (COPD), Diabetes Mellitus Type 1, Diabetes Mellitus Type 2, Hypertension, MRSA, Seizures Other Medical History: Denies: Blood Transfusion Reaction Laterality Cases: Bilateral: Tonsillectomy Other Surgeries: Yes: No Previous Surgery, Cholecystectomy Amputation: No Fractures: No - Social History Smoking Status: Never smoker Alcohol Intake: never Substance Use Type: denies use Occupational Status: other - Psychiatric History Pschychiatric History:: Reports:: Anxiety, Depression Family Hx:: No significant family history ROS Obtained: Yes All systems reviewed & no additional complaints, Yes Systems reviewed as appropriate & no additional complaints - Constitutional Constitutional: Denies fever(s) - Gastrointestinal Gastrointestingal: Reports: system reviewed and no additional complaints, except as docu. Denies: abdominal pain - Genitourinary Female Genitourinary: Denies dysuria, Denies flank pain, Reports urinary frequency, Denies vaginal discharge, De
[2020-05-20 16:44] VITALS: BP 121/83; PULSE 83; RESP 19; TEMP 36.8; O2SAT 100
[2020-05-20 20:13] LABS: Apearance,Urine Clear (Clear); Color,Urine Yellow (Yellow)
[2020-05-20 20:14] LABS: Bilirubin,Urine Negative (Negative); Blood, Urine 1+ (Negative); Glucose,Urine (UA) Negative (Negative); Ketones,Urine Negative (Negative); Protein,Urine Negative (Negative); Specific Gravity, Urine 1.025 (1.005-1.030); UTC Leukocyte Esterase,Urine Negative (Negative); UTC Nitrate,Urine Negative (Negative); Urobilinogen,Urine 0.2 EU/dl (0.2)
== END 2020-05-20 16:45 | disposition home or self-care (01) ==
PROVIDERS: Emergency Provider Nurse Practitioner; PCP Physician Assistant
DX: R35.0 Frequency of micturition (principal); F41.8 Other specified anxiety disorders; Z88.0 Allergy status to penicillin; Z88.5 Allergy status to narcotic agent
CPT/HCPCS: G0463; 81003; 99202

== ENCOUNTER → 2020-06-08 17:55 | Outpatient (CLI) | payer MEDICARE, SELFPAY | PROVIDERS: Visit Provider Physician Assistant | DX: R53.83 Other fatigue (principal); N39.0 Urinary tract infection, site not specified | CPT/HCPCS: 87086; 87088; 87186 ==

== ENCOUNTER 2020-09-08 00:02 | Emergency (ER) | payer MEDICARE, SELFPAY ==
[2020-09-08 00:15] VITALS: BP 131/66; PULSE 86; RESP 20; TEMP 36.9; O2SAT 98; BMI 21.4
--- NOTE | 2020-09-08 00:26 | XR_ITS ---
PROCEDURE INFORMATION: Exam: XR Left Forearm Exam date and time: 09/08/2020 12:26 AM Age: 65 years old Clinical indication: Injury or trauma; Fall; Blunt trauma (contusions or hematomas); Arm, lower; Injury date: 09/07/2020; Injury details: Fell with outstretched arm to catch herself pain left wrist and left arm; Additional info: Fall w pain TECHNIQUE: Imaging protocol: XR Left forearm. Views: 2 views. COMPARISON: CR XR HUMERUS LT 09/08/2020 12:47 AM FINDINGS: Bones/joints: Acute intra-articular fracture of the distal radius. Acute fracture of the ulnar styloid. Soft tissue swelling about the distal forearm. Soft tissues: See Bones/joints finding. No radiopaque foreign body. IMPRESSION: Acute fractures of the distal radius and ulnar styloid. Refer to wrist radiographs performed on the same date.
--- NOTE | 2020-09-08 00:26 | XR_ITS ---
PROCEDURE INFORMATION: Exam: XR Left Elbow Exam date and time: 09/08/2020 12:26 AM Age: 65 years old Clinical indication: Injury or trauma; Fall; Blunt trauma (contusions or hematomas); Elbow; Injury date: 09/07/2020; Injury details: Fell with outstretched arm to catch herself pain left wrist and elbo; Additional info: Fall w/ pain TECHNIQUE: Imaging protocol: XR Left elbow. Views: 3 or more views. COMPARISON: CR XR HUMERUS LT 09/08/2020 12:47 AM FINDINGS: Bones/joints: No acute fracture, dislocation or osseous destructive process. Soft tissues: No acute finding or radiopaque foreign body. IMPRESSION: No acute findings.
--- NOTE | 2020-09-08 00:26 | XR_ITS ---
PROCEDURE INFORMATION: Exam: XR Left Humerus Exam date and time: 09/08/2020 12:26 AM Age: 65 years old Clinical indication: Injury or trauma; Fall; Blunt trauma (contusions or hematomas); Arm, upper; Injury date: 09/07/2020; Injury details: Fell with outstretched arm to catch herself pain left shoulder and wrist; Additional info: Fall w/ pain TECHNIQUE: Imaging protocol: XR Left humerus. Views: 2 or more views. COMPARISON: No relevant prior studies available. FINDINGS: Bones/joints: No acute fracture, dislocation or osseous destructive process. Soft tissues: No acute findings or radiopaque foreign body. IMPRESSION: No acute findings.
--- NOTE | 2020-09-08 00:26 | XR_ITS ---
PROCEDURE INFORMATION: Exam: XR Left Wrist Exam date and time: 09/08/2020 12:26 AM Age: 65 years old Clinical indication: Injury or trauma; Fall; Blunt trauma (contusions or hematomas); Injury date: 09/07/2020; Injury details: Fell with outstretched arm to catch herselft pain left wrist; Additional info: Fall w/pain TECHNIQUE: Imaging protocol: XR Left wrist. Views: 3 or more views. COMPARISON: No relevant prior studies available. FINDINGS: Bones/joints: Acute fracture of the ulnar styloid. Acute transversely oriented and intra-articular fracture through the distal radius with mild posterior displacement of the distal fragment. Soft tissues: No radiopaque foreign body. Soft tissue swelling about the wrist. IMPRESSION: Acute fractures of the distal radius and ulnar styloid as described.
--- NOTE | 2020-09-08 00:26 | XR_ITS ---
PROCEDURE INFORMATION: Exam: XR Left Shoulder Exam date and time: 09/08/2020 12:26 AM Age: 65 years old Clinical indication: Injury or trauma; Fall; Blunt trauma (contusions or hematomas); Injury date: 09/07/2020; Injury details: Fell with outstretched arm to catch herself pain left shoulder and wrist; Additional info: Fall w/ pain TECHNIQUE: Imaging protocol: XR Left shoulder. Views: 2 or more views. COMPARISON: No relevant prior studies available. FINDINGS: Bones/joints: No acute fracture, dislocation or osseous destructive process. Soft tissues: No acute findings or radiopaque foreign body. IMPRESSION: No acute findings.
--- NOTE | 2020-09-08 00:26 | XR_ITS ---
PROCEDURE INFORMATION: Exam: XR Pelvis Exam date and time: 09/08/2020 12:26 AM Age: 65 years old Clinical indication: Injury or trauma; Blunt trauma (contusions or hematomas); Pelvic region; Injury date: 09/07/2020; Injury details: Fell with outstretched arm to catch herself pain in in left wrist and arm and shoulder pelvis xray for trauma protocol for falls; Additional info: Fall TECHNIQUE: Imaging protocol: XR pelvis. Views: 1 or 2 view. COMPARISON: CR HIP2R HIP-2 VIEWS-RT 09/20/2013 4:30 PM FINDINGS: Bones/joints: There is osseous/cortical irregularity of the right femoral head in the area of the fovea capitis, not seen on the prior exam. No displaced fracture or osseous destructive process. No dislocation. Mild degenerative changes in the bilateral hip joints. Soft tissues: No acute findings or radiopaque foreign body. IMPRESSION: Osseous/cortical irregularity of the right femoral head not seen on the prior exam. This could represent overlapping structures, however if there is continued clinical concern for fracture, follow-up with CT pelvis would be appropriate.
--- NOTE | 2020-09-08 00:26 | XR_ITS ---
PROCEDURE INFORMATION: Exam: XR Chest Exam date and time: 09/08/2020 12:26 AM Age: 65 years old Clinical indication: Injury or trauma; Fall; Blunt trauma (contusions or hematomas); Injury date: 09/07/2020; Injury details: Fell with outstretched arm pain left shoulder TECHNIQUE: Imaging protocol: XR of the chest. Views: 1 view. COMPARISON: CHESTWO CT chest wo con 10/12/2018 1:32 PM FINDINGS: Lungs: No acute consolidation or airspace disease. Pleural spaces: No pleural effusion. No pneumothorax. Heart/Mediastinum: No acute findings or cardiomegaly. Bones/joints: Mild levocurvature of the thoracic spine. IMPRESSION: 1. No acute cardiopulmonary findings. 2. Mild levocurvature of the thoracic spine.
--- NOTE | 2020-09-08 00:29 | XR_ITS ---
PROCEDURE INFORMATION: Exam: XR Left Hand Exam date and time: 09/08/2020 12:29 AM Age: 65 years old Clinical indication: Injury or trauma; Fall; Blunt trauma (contusions or hematomas); Injury date: 09/07/2020; Injury details: Fell with outstretched arm and pain and swelling left hand TECHNIQUE: Imaging protocol: XR Left hand. Views: 3 or more views. COMPARISON: No relevant prior studies available. FINDINGS: Bones/joints: Acute fractures of the ulnar styloid and distal radius. No acute osseous findings in the hand. Soft tissues: No acute finding or radiopaque foreign body. IMPRESSION: 1. No acute osseous findings in the hand. 2. Acute fractures of the ulnar styloid and distal radius.
--- NOTE | 2020-09-08 00:51 | XR_ITS ---
PROCEDURE INFORMATION: Exam: XR Right Ankle Exam date and time: 09/08/2020 12:51 AM Age: 65 years old Clinical indication: Injury or trauma; Fall; Sprain or strain; Right; Injury date: 09/07/2020; Injury details: Fell abrasion RT ankle lateral aspect; Additional info: Fall w/ pain TECHNIQUE: Imaging protocol: XR Right ankle. Views: 3 or more views. COMPARISON: No relevant prior studies available. FINDINGS: Bones/joints: No acute fracture, dislocation or osseous destructive process. Enthesophyte at the attachment of the plantar fascia on the calcaneus. Small ankle joint effusion is suspected. Soft tissues: No acute finding or radiopaque foreign body. IMPRESSION: 1. No acute osseous findings. 2. Small ankle joint effusion suspected.
--- NOTE | 2020-09-08 01:14 | PC.NURSE ---
pt back from xrays
[2020-09-08 01:17] VITALS: BP 123/62; PULSE 86; RESP 18; O2SAT 98
[2020-09-08 01:30] VITALS: BP 120/67; PULSE 88; O2SAT 98
--- NOTE | 2020-09-08 01:35 | HMH.EDUPEXT ---
ED Disposition Clinical Impression: Fracture of wrist Qualifiers: Encounter type: initial encounter Fracture type: closed Laterality: left Qualified Code(s): S62.102A - Fracture of unspecified carpal bone, left wrist, initial encounter for closed fracture Disposition: Home, Self-Care Condition on Discharge: Good Instructions: DI for Wrist Fracture Additional Instructions: ice and wear splint and sling and call pcp and ortho this am Referrals: Virginia Barbosa PA [Primary Care Provider] - Patsy Maxwell MD [Physician] - Marcello Cast MD [Staff Physician] - - Critical Care Critical Care Time: No Attestation: On 09/08/20, the high probability of a clinically significant, sudden or life threatening deterioration of the following system(s) required my full and direct attention, intervention and personal management. The time I documented below is in addition to time spent performing reported procedures but includes the following listed in this critical care notation. Medical Decision Making - Medical Records Medical records reviewed: Yes: I reviewed the patient's medical records. - Marc Inquiry Pt receiving controlled substance: No Vital Signs: 09/08/20 00:15 09/08/20 01:17 09/08/20 01:30 Temperature 98.4 F Temperature Source Oral Pulse Rate 86 88 Pulse Rate [Right] 86 Respiratory Rate 20 18 Blood Pressure 123/62 120/67 Blood Pressure [Right Arm] 131/66 Blood Pressure Mean 89 Blood Pressure Mean [Right Arm] 87 Blood Pressure Source Automatic Cuff Blood Pressure Source [Right Arm] Automatic Cuff Blood Pressure Position [Right Arm] Sitting 02 Sat by Pulse Oximetry 98 98 98 Oxygen Delivery Method Room Air Room Air Room Air Orders (Tests/Meds): ORDERS Category Date Time Status XR ankle RT min 3V Stat Exams 09/08/20 00:51 Taken XR chest AP Stat Exams 09/08/20 00:26 Taken XR elbow LT min 3V Stat Exams 09/08/20 00:26 Taken XR forearm LT 2V Stat Exams 09/08/20 00:26 Taken XR hand LT min 3V Stat Exams 09/08/20 00:29 Taken XR humerus LT Stat Exams 09/08/20 00:26 Taken XR pelvis 1-2V Stat Exams 09/08/20 00:26 Taken XR shoulder LT min 2V Stat Exams 09/08/20 00:26 Taken XR wrist LT min 3V Stat Exams 09/08/20 00:26 Taken - Radiology Data #1 Image(s): Humerus, Elbow, Forearm, Wrist, Hand Image Reviewed: Yes I reviewed the patient's radiology image Preliminary Findings: Abnormal (wrist fx ) Medical Decision Narrative: fall with wrist fx and will need ortho follow up Upper Extremity HPI - General Chief Complaint: Extremity Injury, Upper Stated Complaint: AO 09/07/20 22:00 Injury to left wrist Time Seen by Provider: 09/08/20 00:35 Mode of Arrival: Ambulatory Source of Information: Patient, Medical Record Limitations: No Limitations Description of Symptoms (Recalled from ER Triage Doc. by RN): Pt states she fell off a camper step and stopped her fall with her left hand, pt now has pain with minimal movement to left wrist, Pain to left elbow with ROM and pain to left shoulder. - History of Present Illness HPI narrative: fell with acute fosh injury MD complaint: injury to: left, wrist Onset (ago): hour(s) Other Extremity Injury: Left: wrist, shoulder Handedness: right Place: home Severity: moderate Associated symptoms: denies other symptoms - Related Data Home Medications Medication Instructions Recorded Confirmed No Known Home Medications 09/08/20 09/08/20 Allergies Allergy/AdvReac Type Severity Reaction Status Date / Time amoxicillin [From Augmentin] Allergy Verified 06/08/20 15:40 cimetidine [From Tagamet] Allergy Verified 06/08/20 15:40 clavulanic acid Allergy Verified 06/08/20 15:40 [From Augmentin] codeine Allergy Verified 06/08/20 15:40 Penicillins Allergy Verified 06/08/20 15:40 [facility] History - Hepatitis A Screen Drug use history?: No High risk sexual behaviors?: No History of sexually tr
[2020-09-08 02:02] VITALS: BP 120/69; PULSE 86; RESP 18; TEMP 36.9; O2SAT 98
--- NOTE | 2020-09-08 02:03 | PC.NURSE ---
3 silver colored rings removed off of pt's 2nd, 3rd and 4th fingers on left hand placed in cup and given to pt.
== END 2020-09-08 02:08 | disposition home or self-care (01) ==
PROVIDERS: Emergency Provider Emergency Medicine; PCP Physician Assistant
DX: S52.502A Unspecified fracture of the lower end of left radius, initial encounter for closed fracture (principal); S52.615A Nondisplaced fracture of left ulna styloid process, initial encounter for closed fracture; W17.89XA Other fall from one level to another, initial encounter; Y92.89 Other specified places as the place of occurrence of the external cause
CPT/HCPCS: 71045; 72170; 73030; 73060; 73080; 73090; 73110; 73130; 73610; 99284

== ENCOUNTER → 2020-09-11 14:13 | Outpatient (CLI) | payer MEDICARE, SELFPAY ==
[2020-09-11 14:57] LABS: Basophils # 0.1 K/mm3 (0-0.2); Basophils % 0.6 % (0.1-2.0); Eosinophils # 0.2 K/mm3 (0.0-0.4); Eosinophils % 2.3 % (0.1-12.0); Hematocrit 37.9 % (37.0-47.0); Lymphocytes # 3.5 K/mm3 (0.7-4.5); Lymphocytes % 40.6 % (10-50); Mean Corpuscular HGB Conc 34.2 g/dL (31.8-35.4); Mean Corpuscular Hemoglobin 31.2 pg (27.0-31.2); Mean Platelet Volume 7.7 fl (7.4-10.4); Monocytes # 0.4 K/mm3 (0.1-1.0); Monocytes % 4.6 % (1.7-9.3); Neutrophils # 4.4 K/mm3 (1.8-7.8); Neutrophils % 51.8 % (37.0-80.0); Platelet Count 275 K/mm3 (142-424); Red Blood Count 4.17 M/mm3 (4.20-5.40); Red Cell Distribution Width 13.7 % (11.5-17.5); White Blood Count 8.6 K/mm3 (4.8-10.8)
[2020-09-11 16:05] LABS: Chloride 103 mmol/L (98-107); Potassium 3.4 mmoL/L (3.5-5.1); Sodium 139 mmol/L (136-145)
[2020-09-11 16:07] LABS: Alanine Aminotransferase 49 U/L (12-78); Aspartate Amino Transferase 47 U/L (14-36); Blood Urea Nitrogen 8 mg/dl (7-17); Estimated Glomerular Filt Rate 84 ml/min (>60); GFR (African American) 102 ML/MIN (>60)
[2020-09-11 16:08] LABS: Albumin Level 4.5 g/dl (3.5-5.0); Albumin/Globulin Ratio 1.5 (1.1-1.8); Alkaline Phosphatase 121 U/L (38-126); Anion Gap 12.4 mEq/L (5-15); Bilirubin,Total 0.7 mg/dl (0.2-1.3); Calcium 9.2 mg/dl (8.4-10.2); Carbon Dioxide 27 mmol/L (22.0-30.0); Glucose 95 mg/dl (74-100); Total Protein,Serum 7.5 g/dl (6.3-8.2)
[2020-09-11 16:41] LABS: Coronavirus 19 IgG Antibody Negative (Negative); Coronavirus 19 IgM Antibody Negative (Negative)
== END ==
PROVIDERS: Visit Provider Orthopaedic Surgery
DX: I95.9 Hypotension, unspecified (principal); Z01.818 Encounter for other preprocedural examination; Z20.822 Contact with and (suspected) exposure to COVID-19
CPT/HCPCS: 36415; 80053; 85025; 86328

== ENCOUNTER → 2020-09-18 08:28 | Outpatient (CLI) | payer MEDICARE, SELFPAY ==
--- NOTE | 2020-09-18 08:28 | CT_ITS ---
PROCEDURE: CT WRIST LT WO CON CLINICAL HISTORY: surgical planning for distal radius fracture COMPARISON: No exams were available for comparison TECHNIQUE: Axial images obtained with sagittal and coronal reformats. All CT scans at the facility use one or more dose reduction, viz: automated exposure control, ma/kV adjustment per patient size (including targeted exams where dose is matched to indication, i.e. head), or iterative reconstruction technique. FINDINGS: There is a displaced comminuted fracture of the distal radius. There is evidence of displacement of the fragment of the medial aspect of the distal radius. The radial styloid demonstrates a focal ossific fragment. Displaced ulnar styloid fracture is noted. The radiocarpal alignment is unremarkable. The carpal bones demonstrate no focal abnormality. Soft tissue swelling adjacent to the wrist joint is noted. IMPRESSION: Displaced comminuted fracture of the distal radius. Ulnar styloid fracture. Dictated by: Lisa Cast 09/18/2020 11:19 Lisa Cast in OV 09/18/2020 11:19
== END ==
PROVIDERS: PCP Physician Assistant; Visit Provider Orthopaedic Surgery
DX: S52.502A Unspecified fracture of the lower end of left radius, initial encounter for closed fracture (principal); Z01.818 Encounter for other preprocedural examination; Z11.52 Encounter for screening for COVID-19
CPT/HCPCS: 73200; U0003

== ENCOUNTER → 2020-09-18 09:04 | Outpatient (CLI) | payer MEDICARE, SELFPAY | PROVIDERS: Visit Provider Orthopaedic Surgery | DX: Z20.822 Contact with and (suspected) exposure to COVID-19 (principal) | CPT/HCPCS: U0003 ==

== ENCOUNTER 2020-09-19 06:01 | Day surgery (SDC) | payer MEDICARE, SELFPAY ==
[2020-09-18 16:10] VITALS: BMI 21.4
[2020-09-19] VITALS (11 sets, daily range): BP systolic 103–140; BP diastolic 49–84; PULSE 63–96; RESP 15–18; TEMP 36.6–40.5; O2SAT 93–97
--- NOTE | 2020-09-19 10:04 | XR_ITS ---
PROCEDURE: XR WRIST LT 2V CLINICAL INDICATION: LEFT ORIF WRIST IN OR USING C ARM COMPARISON: CT of the wrist joint of September 18, 2020 FINDINGS: Multiple fluoroscopic images demonstrate comminuted angulated fracture of the distal radius. Internal fixation of the distal radial fracture with the plate and screws noted. Satisfactory alignment is noted. IMPRESSION: Internal fixation of the comminuted mildly angulated distal radial fracture. Dictated by: Lisa Cast 09/19/2020 11:12 Lisa Cast in OV 09/19/2020 11:12
--- NOTE | 2020-09-19 10:58 | HMH.ANESCL ---
[facility] Anesthesia Checklist - Structural Data Admitted From: Home Planned Operative Procedure/s: orif l wrist Consent for Planned Operative Procedure(s) Verified: Yes - Additional verifications Anesthesia Reactions: No Hx Blood Transfusions: No Blood Transfusion Reaction: No - Airway Assessment C-Spine Mobility Assessed: Yes TMJ Mobility Assessed: Yes Dentition: Poor Dentition - Neurological Assessment Level of Consciousness: Awake, Alert, Appropriate - Anesthesia Plan Anesthesia Risk discussed: Yes Anesthesia Plan: Verified ASA Class: II Anesthesia Type: General w/block [facility] History I have reviewed the patient's past medical history: Yes Medical History: Reports:: Anxiety, Depression Denies:: Cancer, Chronic Obstructive Pulmonary Disease (COPD), Diabetes Mellitus Type 1, Diabetes Mellitus Type 2, Hypertension, Internal Pacemaker, MRSA, Seizures *Have you ever received a pneumonia vaccine?: No *Have you received a flu vaccine this season?: No Other Medical History: Denies: Blood Transfusion Reaction Anesthesia experience/problems:: none Laterality Cases: Bilateral: Tonsillectomy Other Surgeries: Yes: No Previous Surgery, Cholecystectomy, Colonoscopy. No: Pacemaker Amputation: No Fractures: No - *Social History Smoking Status: Never smoker Alcohol Intake: never Substance Use Type: denies use *Occupational Status:: disabled Housing: house *Travel in the last 8 weeks: None - Psychiatric History Pschychiatric History:: Reports:: Anxiety, Depression Family Hx:: No significant family history
--- NOTE | 2020-09-19 11:02 | XR_ITS ---
PROCEDURE: XR WRIST LT MIN 3V CLINICAL INDICATION: s/p ORIF L DRF COMPARISON: CR XR WRIST LT MIN 3V from 09/08/2020 FINDINGS: Internal fixation of the left distal radius with plate and screws noted. Presence of plastic cast is noted. Satisfactory alignment. Otherwise the visualized distal radius, ulna, carpal bones and metacarpals are unremarkable. IMPRESSION: Internal fixation of the left distal radius. Dictated by: Lisa Cast 09/19/2020 11:23 Lisa Cast in OV 09/19/2020 11:23
--- NOTE | 2020-09-19 14:16 | P.PN_ITS ---
[facility] Anesthesia Record Part II Discharge Time: 11:35 Destination: Surgical Day Care (OP Surgery) PACU nurse assessment reviewed?: Yes Patient Condition:: Good Anesthesia Complications:: None Swallowing reflex intact?: Yes Cyanosis?: No Blood Pressure: 115/76 Pulse Rate: 90 Temperature: 99.3 F Mental Status: Alert & Oriented Pain level:: 0 Nausea and/or vomitting:: None Intake, IV Amount: 0
--- NOTE | 2020-09-19 22:29 | HMH.OPNOTE ---
Date of procedure: 09/19/20 Pre-op Diagnosis:: L distal radius fracture Post-op Diagnosis:: L distal radius fracture Procedure performed:: open reduction internal fixation (ORIF) L distal radius fracture Surgeon:: Patsy Maxwell MD Head Of Design(s):: Karen Skelton WRAPPER OPERATOR:: Varinder Martinez Anesthesia: GETA, regional (supraclavicular block) Estimated blood loss (mL): 10 Clinical Note:: 65-year-old female who sustained an injury to the left wrist on 09/08/2020. She fell off of a step backwards and landed on her outstretched left arm. She has never broken a bone before and has never had surgery on the left arm or wrist. She was seen in the emergency department on the day of injury and placed into a removable wrist brace; no splint was applied. She denies any open wounds around the left wrist, no bruising, no numbness or tingling in the fingers. No other injury sustained during the fall, no loss of consciousness, no neck pain, no pain in any other bone or joint. She rates her pain a 7 out of 10 at rest, 10 out of 10 at worst. She is right-hand dominant, non-smoker, disabled due to history of fibromyalgia and back issues. She has a history of COPD due to secondhand smoke as well as anxiety and depression and fibromyalgia but takes no medications. She is allergic to amoxicillin, clavulanic acid, cimetidine, codeine, penicillin. She takes no prescription medications. The fracture is intra-articular involving mostly a large mildly displaced lunate fossa fragment that is displaced dorsally with intra-articular involvement. Fracture line does extend volarly but no volar shift/angulation seen. Given the displacement of the lunate fossa fragment I would recommend surgical fixation of this fracture. I discussed the risks of surgery with the patient, including but not limited to: bleeding, infection, neurovascular damage, hardware failure, malunion, nonunion, persistent pain and/or stiffness, and need for revision surgery. The patient vocalized understanding of the above and desires to proceed with surgery. Informed consent was obtained. Operative findings:: IMPLANTS: [employer] Geminus Distal Radius System = VOLAR 2-hole narrow LEFT volar locking plate distal fixation = 2.3mm locking screws x 7 shaft fixation = 3.5mm cortical/non-locking screws x2 [employer] Protean Fragment Plate; Y plate 6 screws, all 2.7mm; 3 locking, 3 non-locking 1 non-locking screw with washer used for interfragmentary fixation dorsally outside the plate Operative note:: The patient was identified in preoperative holding and the L arm signed by myself. Consent was verified with the patient and all questions answered. She was seen by anesthesia and supraclavicular nerve block administered to the L upper extremity. The patient was then transferred to the OR and placed supine on the operative table with a hand table under the L upper extremity. All bony prominences were well-padded and SCDs placed on bilateral lower extremities. 900mg clindamycin was infused and general endotracheal anesthesia induced. Once the patient was asleep, her splint was removed and a nonsterile tourniquet placed on the upper L arm. The L arm was then prepped and draped in the usual sterile fashion. Timeout was performed, identifying the correct patient, correct procedure, and correct site. The procedure was begun by bringing in the C-arm to confirm the site of the fracture in the L distal radius. This was predominantly a dorsal fracture, similar to a dorsal Rai's fracture but without a radial styloid fragment. The large dorsal fragment was displaced and was the primary target of fixation, so a dorsal approach was performed first. The arm was exsanguinated with an Esmarch and the tourniquet inflated to 250 mmHg. Standard dorsal approach to the wrist was performed centered over the lunate fossa fragment. This fragment was mobilized with freer and dental pick, reduced and provisionally fixated
== END 2020-09-19 12:10 | disposition home or self-care (01) ==
LOC: OR 06:03
PROVIDERS: PCP Physician Assistant; Visit Provider Orthopaedic Surgery
PROC: (CPT 25608; principal; 2020-09-19 07:30)
DX: S52.572A Other intraarticular fracture of lower end of left radius, initial encounter for closed fracture (principal); S52.612A Displaced fracture of left ulna styloid process, initial encounter for closed fracture; W10.9XXA Fall (on) (from) unspecified stairs and steps, initial encounter; Y92.9 Unspecified place or not applicable
CPT/HCPCS: 25608; 25652; 73100; 73110; 76000; 96374; C1713; C1776; J2405

== ENCOUNTER → 2020-09-29 14:53 | Outpatient (CLI) | payer MEDICARE, SELFPAY ==
--- NOTE | 2020-09-29 14:56 | XR_ITS ---
PROCEDURE: XR WRIST LT MIN 3V CLINICAL INDICATION: s/p ORIF DRF COMPARISON: CR XR WRIST LT MIN 3V from 09/08/2020 CR XR WRIST LT MIN 3V from 09/19/2020 FINDINGS: Anterior and dorsal bone plates are present at the distal radius stabilizing distal radial fracture with good alignment of the fracture fragments. There is a nondisplaced avulsion fracture of the ulnar styloid. The splint has been removed. IMPRESSION: Status post ORIF distal radial fracture with good alignment. Dictated by: Randy Hawkins MD 09/29/2020 15:57 Randy Hawkins MD in [place] 09/29/2020 15:57
== END ==
PROVIDERS: PCP Physician Assistant; Visit Provider Orthopaedic Surgery
DX: S52.502A Unspecified fracture of the lower end of left radius, initial encounter for closed fracture (principal)
CPT/HCPCS: 73110

== ENCOUNTER → 2020-10-20 13:07 | Outpatient (CLI) | payer MEDICARE, SELFPAY ==
--- NOTE | 2020-10-20 13:11 | XR_ITS ---
PROCEDURE: XR WRIST LT MIN 3V CLINICAL INDICATION: s/p ORIF LT DRF Follow-up fracture/ORIF COMPARISON: CR XR WRIST LT MIN 3V from 09/08/2020 CR XR WRIST LT MIN 3V from 09/19/2020 CR XR WRIST LT MIN 3V from 09/29/2020 FINDINGS: There are dorsal and volar bone plate present at the distal radius stabilizing the mildly impacted distal radial fracture with minimal dorsal inclination of the distal radius. Nondisplaced ulnar styloid avulsion noted. IMPRESSION: Status post ORIF distal radius as described above not significantly changed with good alignment Dictated by: Randy Hawkins MD 10/20/2020 15:23 Randy Hawkins MD in [place] 10/20/2020 15:23
== END ==
PROVIDERS: PCP Physician Assistant; Visit Provider Orthopaedic Surgery
DX: S52.502A Unspecified fracture of the lower end of left radius, initial encounter for closed fracture (principal)
CPT/HCPCS: 73110

== ENCOUNTER 2020-10-20 14:49 | Outpatient (RCR) | payer MEDICARE, SELFPAY | END 2020-10-20 15:30 | disposition home or self-care (01) | LOC: OT 14:49 | PROVIDERS: Visit Provider Orthopaedic Surgery | DX: S62.102D Fracture of unspecified carpal bone, left wrist, subsequent encounter for fracture with routine healing (principal) | CPT/HCPCS: 97763 ==

== ENCOUNTER 2020-11-14 09:05 | Emergency (ER) | payer MEDICARE, SELFPAY ==
[2020-11-14 09:05] VITALS: BP 122/75; PULSE 88; RESP 19; TEMP 36.8; O2SAT 98; BMI 20.2
[2020-11-14 09:31] LABS: UTC Strep Screen (Rapid) Positive (Negative)
--- NOTE | 2020-11-14 09:35 | HMH.EDUTC ---
[facility] [place] Clinical Impression: Strep throat Disposition: Home, Self-Care Condition on Discharge: Good Instructions: Strep Throat, DI for Strep Throat Additional Instructions: *Monitor Temp, Over the counter Motrin or Tylenol as directed/as needed Tylenol every 4 hours and Motrin every 6 hours (as long as your family doctor has told you that you can take it) for fever or pain. and straight to ER if unable to lower temp less than 101.0 after medication given *Warm salt water gargles may help to soothe the throat *Throat Lozenges *Warm fluids like tea with honey may help to soothe the throat *Sleep elevated *Humidifier/Vaporizer *If you did not take Penicillin shot or was unable to, start taking antibiotic immediately and make sure that you take it for the FULL length of time although you should start to feel better in 24-48 hours *change toothbrush and toothpaste 24-48 hours after starting to take antibiotics so you do not reinfect yourself Monitor Temp. Tylenol and/or Ibuprofen as needed. ER if fever is no less than 101 despite alternating Tylenol and Ibuprofen * Encourage fluids, water, Gatorade, powerade, pedialyte if infant/toddler/or child *Cold fluids, popsicles and ice cream may feel good on his throat You can dab Milk of magnesium on cotton swap and apply to your canker sores four times daily and this will help with the pain and help with healing Follow up IMMEDIATELY for new or worsening symptoms or no Noticeable improvement over the next 48-72 hours. 911 for difficulty breathing or swallowing Prescriptions: cephALEXin [cephALEXin 500mg capsule*] 500 mg PO BID 10 Days #20 cap Transmission Status: Received by [id number] Referrals: Virginia Barbosa PA [Primary Care Provider] - As needed Time of Disposition: 09:50 Medical Decision Making - Marc Inquiry Pt receiving controlled substance: No Marc was queried for this patient: No Vital Signs: 11/14/20 09:05 11/14/20 09:50 Temperature 98.3 F 98.3 F Temperature Source Oral Pulse Rate 88 Pulse Rate [Right Brachial] 88 Respiratory Rate 19 19 Blood Pressure 122/75 Blood Pressure [Right Arm] 122/75 Blood Pressure Mean [Right Arm] 90 Blood Pressure Source [Right Arm] Automatic Cuff Blood Pressure Position [Right Arm] Sitting 02 Sat by Pulse Oximetry 98 Oxygen Delivery Method Room Air - Lab Data Lab results reviewed: Yes: I reviewed the patient's lab results. Lab Results 11/14/20 09:19: Strep Scn [facility] Positive A Medical Decision Narrative: Patient state that she is allergic to PCN and augmentin but has taken Cephalexin in the past without complications or reactions [facility] [place] HPI - General Stated complaint: throat soreness, inside of mouth is sore Time Seen by Provider: 11/14/20 09:35 Mode of Arrival: Ambulatory Source of Information: Patient Limitations: No Limitations Description of Symptoms (Recalled from Triage Doc. by RN): PATIENT C/O SORE TONGUE AND MOUTH, SORE THROAT, RIGHT EAR PAIN, AND BLISTERS ON LIP SINCE FRIDAY HEENT Symptoms (Recalled from RN notes): Yes Resp Symptoms (Recalled from RN notes): No Skin Symptoms (Recalled from RN notes): No MS Symptoms (Recalled from RN notes): No Functional Status (Recalled from RN notes): WNL - History of Present Illness Provider Complaint: Patient state that she was recently around her daughter and grandson that had strep throat State that she has been having sore throat feels like her tongue is even sore, pain in right ear and feeling achy States that she has had blisters on her lip too State that today she was still not feeling better so she came in to get checked - Related Data Previous Rx's Medication Instructions Recorded cephALEXin [cephALEXin 500mg 500 mg PO BID 10 Days #20 cap 11/14/20 capsule*] Allergies Allergy/AdvReac Type Severity Reaction Status Date / Time amoxicillin [From Augmentin] Allergy Verified 10/20/20 13:52 cimetidine [
[2020-11-14 09:50] VITALS: BP 122/75; PULSE 88; RESP 19; TEMP 36.8; O2SAT 98
== END 2020-11-14 09:55 | disposition home or self-care (01) ==
PROVIDERS: Emergency Provider Nurse Practitioner; PCP Physician Assistant
DX: H92.01 Otalgia, right ear (principal); J02.0 Streptococcal pharyngitis; F41.8 Other specified anxiety disorders; Z88.0 Allergy status to penicillin
CPT/HCPCS: G0463; 87880; 99202

== ENCOUNTER → 2021-03-16 12:39 | Outpatient (CLI) | payer MEDICARE, SELFPAY | PROVIDERS: PCP Physician Assistant; Visit Provider Nurse Practitioner | DX: Z20.822 Contact with and (suspected) exposure to COVID-19 (principal) | CPT/HCPCS: C9803; U0003; U0005 ==

== ENCOUNTER 2021-03-19 09:16 | Emergency (ER) | payer MEDICARE, SELFPAY ==
[2021-03-19 09:40] VITALS: BP 110/70; PULSE 87; RESP 19; TEMP 37.1; O2SAT 98; BMI 20.2
--- NOTE | 2021-03-19 10:27 | HMH.EDUTC ---
[facility] [place] Disposition Clinical Impression: URI (upper respiratory infection) Qualifiers: URI type: unspecified URI Qualified Code(s): J06.9 - Acute upper respiratory infection, unspecified Disposition: Home, Self-Care Condition on Discharge: Good Instructions: Sore Throat, DI for Sinusitis Additional Instructions: ? Start antibiotic today. Be sure to complete entire prescription even if feeling better ? Monitor temp. Tylenol every 4 hours as needed and / or ibuprofen every 6 hours as needed ( As long as your primary care physician has told you that it ok to take both. For fever/aches/pains ER if no less than 101 despite Tylenol or Motrin ? Humidifier/vaporizer or hot steamy shower *Tessalon Perles will not cause drowsiness but use at bedtime to help stop cough so that you may get some rest. *Start steroid today. Helps with inflammation therefore, cough and wheezing. Follow directions on the package. Reviewed side effects. Patient reports taking them before. Follow up IMMEDIATELY for new or worsening of symptoms OR no noticeable improvement over the next 48-72 hours. 911 immediately for any life threatening symptoms such as chest pain or difficulty breathing Prescriptions: Benzonatate [Benzonatate 100mg cap] 100 mg PO TID PRN #30 cap PRN Reason: Cough Transmission Status: Pending to [id number] methylPREDNISolone [Medrol 4mg tab] 4 mg PO DIRECTED #21 tab Transmission Status: Pending to [facility] Azithromycin [Z-Lai 250mg Tab] 250 mg PO DIRECTED #6 tab Transmission Status: Pending to [id number] Referrals: Virginia Barbosa PA [Primary Care Provider] - As needed Time of Disposition: 10:37 Medical Decision Making - Marc Inquiry Pt receiving controlled substance: No Marc was queried for this patient: No Vital Signs: 03/19/21 09:40 03/19/21 10:32 Temperature 98.8 F 98.8 F Temperature Source Oral Pulse Rate 87 Pulse Rate [Right Brachial] 87 Respiratory Rate 19 19 Blood Pressure 110/70 Blood Pressure [Right Arm] 110/70 Blood Pressure Mean [Right Arm] 83 Blood Pressure Source [Right Arm] Automatic Cuff Blood Pressure Position [Right Arm] Sitting 02 Sat by Pulse Oximetry 98 Oxygen Delivery Method Room Air Medical Decision Narrative: Patient states that she has taken azithromycin and Medrol in the past without complications or reactions [facility] [place] HPI - General Stated complaint: cough, body aches, congestion Time Seen by Provider: 03/19/21 10:27 Mode of Arrival: Ambulatory Source of Information: Patient Limitations: No Limitations Description of Symptoms (Recalled from Triage Doc. by RN): PATIENT C/O COUGH, BODY ACHES, AND RIGHT CHEST/BACK PAIN WITH COUGH X 1 WEEK HEENT Symptoms (Recalled from RN notes): Yes Resp Symptoms (Recalled from RN notes): Yes Skin Symptoms (Recalled from RN notes): No MS Symptoms (Recalled from RN notes): Yes Functional Status (Recalled from RN notes): WNL - History of Present Illness Provider Complaint: Patient states that she feels like she is getting the URI that she get this time every year States that she has been having sore throat, sinus congestion and pressure and feels like it is trying to move into her chest area States that at times she will have a small pain in the right side of upper chest and back with deep breath and cough but she has had pleurisy before and feels like that - Related Data Previous Rx's Medication Instructions Recorded Azithromycin [Z-Lai 250mg Tab] 250 mg PO DIRECTED #6 tab 03/19/21 Benzonatate [Benzonatate 100mg 100 mg PO TID PRN #30 cap 03/19/21 cap] methylPREDNISolone [Medrol 4mg 4 mg PO DIRECTED #21 tab 03/19/21 tab] Allergies Allergy/AdvReac Type Severity Reaction Status Date / Time amoxicillin [From Augmentin] Allergy Verified 10/20/20 13:52 cimetidine [From Tagamet] Allergy Verified 10/20/20 13:52 clavulanic acid Allergy Verified 10/20/20 13:52 [From Dec
[2021-03-19 10:32] VITALS: BP 110/70; PULSE 87; RESP 19; TEMP 37.1; O2SAT 98
== END 2021-03-19 10:45 | disposition home or self-care (01) ==
PROVIDERS: Emergency Provider Nurse Practitioner; PCP Physician Assistant
DX: J06.9 Acute upper respiratory infection, unspecified (principal); F41.8 Other specified anxiety disorders
CPT/HCPCS: G0463; 99202

== ENCOUNTER → 2021-05-22 12:28 | Outpatient (CLI) | payer MEDICARE, SELFPAY | PROVIDERS: Visit Provider Nurse Practitioner | DX: Z20.822 Contact with and (suspected) exposure to COVID-19 (principal) | CPT/HCPCS: C9803; U0003; U0005 ==

== ENCOUNTER 2021-05-22 12:33 | Emergency (ER) | payer MEDICARE, SELFPAY ==
[2021-05-22 12:35] VITALS: RESP 18; TEMP 36.8; O2SAT 97; BMI 20.5
[2021-05-22 12:47] VITALS: BMI 20.5
--- NOTE | 2021-05-22 12:52 | XR_ITS ---
FINAL REPORT CLINICAL HISTORY: covid suspected, cough COMPARISON: September 08, 2020 FINDINGS: SINGLE VIEW CHEST. The heart is normal in size. The mediastinum is unremarkable. There is right lung base opacity consistent with pneumonia. There is no pneumothorax. IMPRESSION: Right lung base opacity consistent with pneumonia. Reviewed, Interpreted and Dictated by Celio Tovar III, MD Transcribed by Maddy Apodaca Authenticated by Celio Tovar III, MD on 05/22/2021 01:49:[address] [facility]
--- NOTE | 2021-05-22 12:53 | PC.NURSE ---
Called RAD for chest xray
[2021-05-22 12:59] LABS: Coronavirus 19, PCR Not Detected (NotDetected); Influenza A, PCR Not Detected (NotDetected); Influenza B, PCR Not Detected (NotDetected)
--- NOTE | 2021-05-22 13:22 | HMH.EDURI ---
ED Disposition Clinical Impression: Right lower lobe pneumonia Qualifiers: Pneumonia type: due to unspecified organism Qualified Code(s): J18.9 - Pneumonia, unspecified organism Disposition: Home, Self-Care Condition on Discharge: Good Instructions: Pneumonia-Adult Prescriptions: Doxycycline Monohydrate [Doxycycline [place] 100mg Tab] 100 mg PO Q12 #20 tab Transmission Status: Pending to [facility] Referrals: Virginia Barbosa PA [Primary Care Provider] - - Critical Care Critical Care Time: No Attestation: On 05/22/21, the high probability of a clinically significant, sudden or life threatening deterioration of the following system(s) required my full and direct attention, intervention and personal management. The time I documented below is in addition to time spent performing reported procedures but includes the following listed in this critical care notation. Medical Decision Making - Medical Records Medical records reviewed: Yes: I reviewed the patient's medical records. - Marc Inquiry Pt receiving controlled substance: No Vital Signs: 05/22/21 12:35 Temperature 98.3 F Temperature Source Oral Respiratory Rate 18 02 Sat by Pulse Oximetry 97 Oxygen Delivery Method Room Air - Lab Data Lab Results 05/22/21 12:49: SARS-CoV-2 (PCR) Not detected, Influenza A Untype (PCR) Not detected, Influenza Type B (PCR) Not detected Orders (Tests/Meds): ED MEDICATIONS Discontinued Medications Generic Name Dose Route Start Last Admin Trade Name Freq PRN Reason Stop Dose Admin Acetaminophen 1,000 mg 05/22/21 12:55 05/22/21 13:13 Acetaminophen 500mg Tab PO 05/22/21 12:56 1,000 mg ONCE ONE Administration Diphenhydramine HCl 25 mg 05/22/21 12:55 05/22/21 13:13 Diphenhydramine 25mg Capsule PO 05/22/21 12:56 25 mg ONCE ONE Administration - Radiology Data #1 Image(s): Chest Image Reviewed: Yes I reviewed the patient's radiology results, Yes I reviewed the patient's radiology image, Yes I have reviewed radiologist's interpretation IMPRESSION: Right lung base opacity consistent with pneumonia. - Reevaluation(s) Time: 13:54 Reevaluation #1: On reevaluation, patient is feeling much better. X-ray findings are consistent with acute pneumonia. Given her symptoms I do believe she will benefit from antibiotic therapy. Patient does not have any significant respiratory distress or desaturation. He is to follow-up with PCP in 48 hours. Given strict return precautions. Verbalized understanding. Medical Decision Narrative: 65-year-old female presented to the emergency department with URI type symptoms. Patient is nontoxic-appearing overall. No respiratory distress. I am concerned for possible influenza or COVID. Swab will be obtained. X-ray also obtained for pneumonia. Patient treated symptomatically. URI/Sore Throat HPI - General Chief Complaint: Upper Respiratory Infection Stated Complaint: chills, cough, body aches, diarrhea, congestion Time Seen by Provider: 05/22/21 12:40 Mode of Arrival: Ambulatory Limitations: No Limitations Description of Symptoms (Recalled from ER Triage Doc. by RN): Pt stated that for the past 2 wks she has been feeling tired, body aches, chills, diarrhea, and congestion. - History of Present Illness HPI Narrative: 65-year-old female presenting with multiple symptom complaints. She states over the last 5 days she has had some nasal congestion, dry cough, lethargy and diarrhea. Patient states that she was exposed to COVID, and is unsure if she has it as well. She states that her nasal congestion has been clear. Cough nonproductive. No hemoptysis. No associated chest pain or palpitations. No headache or change in vision. No focal weakness. Diarrhea has also been clear. She denied having associate abdominal pain or vomiting. - Related Data Previous Rx's Medication Instructions Recorded Azithromycin [Z-Lai 2
[2021-05-22 14:01] VITALS: BP 121/72; PULSE 74; RESP 16; TEMP 36.8; O2SAT 98
== END 2021-05-22 14:02 | disposition home or self-care (01) ==
PROVIDERS: Emergency Provider Emergency Medicine; PCP Physician Assistant
DX: J18.9 Pneumonia, unspecified organism (principal); Z20.822 Contact with and (suspected) exposure to COVID-19; F41.8 Other specified anxiety disorders
CPT/HCPCS: 71045; 99282; C9803; U0003; U0005

== ENCOUNTER 2021-06-02 14:28 | Emergency (ER) | payer MEDICARE, SELFPAY ==
[2021-06-02 14:29] VITALS: BP 134/50; PULSE 74; RESP 20; TEMP 36.9; O2SAT 97; BMI 20.5
--- NOTE | 2021-06-02 15:18 | PC.NURSE ---
Patient swabbed for covid
[2021-06-02 15:41] LABS: Coronavirus 19, PCR Not Detected (NotDetected); Influenza A, PCR Not Detected (NotDetected); Influenza B, PCR Not Detected (NotDetected)
[2021-06-02 16:00] VITALS: BP 117/78; PULSE 91; O2SAT 95
--- NOTE | 2021-06-02 16:13 | XR_ITS ---
PROCEDURE INFORMATION: Exam: XR Chest Exam date and time: 06/02/2021 4:13 PM Age: 65 years old Clinical indication: Shortness of breath; Additional info: Cough, recent pneumonia TECHNIQUE: Imaging protocol: XR of the chest. Views: 1 view. COMPARISON: CR XR CHEST AP 05/22/2021 1:02 PM FINDINGS: Airway: Patent Lungs: There are multiple punctate pulmonary parenchymal calcifications, consistent with remote granulomatous organism exposure. COPD/emphysema is appreciated. No acute interstitial or airspace disease. Pleural spaces: Unremarkable. No pleural effusion. No pneumothorax. Heart/Mediastinum: Unremarkable. No cardiomegaly. Bones/joints: No acute skeletal abnormality or aggressive osseous lesion. IMPRESSION: No acute thoracic pathology.
--- NOTE | 2021-06-02 16:14 | HMH.EDGENADL ---
ED Disposition Clinical Impression: Upper respiratory infection Disposition: Home, Self-Care Condition on Discharge: Good Instructions: DI for Acute Bronchitis Referrals: Virginia Barbosa PA [Primary Care Provider] - - Critical Care Critical Care Time: No Attestation: On 06/02/21, the high probability of a clinically significant, sudden or life threatening deterioration of the following system(s) required my full and direct attention, intervention and personal management. The time I documented below is in addition to time spent performing reported procedures but includes the following listed in this critical care notation. Medical Decision Making - Marc Inquiry Pt receiving controlled substance: No Vital Signs: 06/02/21 14:29 06/02/21 16:00 Temperature 98.4 F Temperature Source Oral Pulse Rate 91 H Pulse Rate [Left Radial] 74 Respiratory Rate 20 Blood Pressure 117/78 Blood Pressure [Right Arm] 134/50 L Blood Pressure Mean 91 Blood Pressure Mean [Right Arm] 78 Blood Pressure Source [Right Arm] Automatic Cuff Blood Pressure Position [Right Arm] Sitting 02 Sat by Pulse Oximetry 97 95 Oxygen Delivery Method Room Air - Lab Data Lab Results 06/02/21 15:16: SARS-CoV-2 (PCR) Not detected, Influenza A Untype (PCR) Not detected, Influenza Type B (PCR) Not detected Medical Decision Narrative: DDx includes but not limited to pnuemonia, covid 19 infection, influenza, other viral URI. HDS, well appearing, NAD, afebrile, on room air. COVID 19/flu swab obtained, cxr obtained. COVID-19 and influenza swab results negative. CXR without acute findings. Remains well appearing, NAD, on room air. Given ED return precautions. General Adult HPI - General Chief complaint: Upper Respiratory Infection Stated complaint: covid exposed, chills, cough, body aches, diarrhea Time Seen by Provider: 06/02/21 16:14 Mode of Arrival: Ambulatory Limitations: No Limitations Description of Symptoms (Recalled from ER Triage Doc. by RN): c/o nausea, chills and cough for a few days, states she was in contact with someone with covid - History of Present Illness HPI narrative: 65 yo female w/ hx gastroparesis presents for evaluation of multiple complaints. Patient reports she has had persistent cough, nausea, tactile fever, nbnb emesis, diarrhea for over 1 week. Was diagnosed with right lung pneumonia on 05/22, negative covid 19 test at that time. states she has had multiple covid 19 exposures with close contacts since then. finished course of doxycycline 10 days since 05/22, but states mild symptoms persist and she is worried she may have tested too early for covid 19 and thinks she may have covid 19 infection from her close contacts, wants to be tested again. - Related Data Previous Rx's Medication Instructions Recorded Azithromycin [Z-Lai 250mg Tab] 250 mg PO DIRECTED #6 tab 03/19/21 Benzonatate [Benzonatate 100mg 100 mg PO TID PRN #30 cap 03/19/21 cap] methylPREDNISolone [Medrol 4mg 4 mg PO DIRECTED #21 tab 03/19/21 tab] Doxycycline Monohydrate 100 mg PO Q12 #20 tab 05/22/21 [Doxycycline [place] 100mg Tab] Allergies Allergy/AdvReac Type Severity Reaction Status Date / Time amoxicillin [From Augmentin] Allergy Verified 10/20/20 13:52 cimetidine [From Tagamet] Allergy Verified 10/20/20 13:52 clavulanic acid Allergy Verified 10/20/20 13:52 [From Augmentin] codeine Allergy Verified 10/20/20 13:52 Penicillins Allergy Verified 10/20/20 13:52 [place] History - Hepatitis A Screen Drug use history?: No High risk sexual behaviors?: No History of sexually transmitted infection?: No Currently employed?: No Childcare worker?: No Do you have indoor plumbing?: Yes Do you have electricity?: Yes Attestation statement:: This patient has been screened for Hepatitis A risk factors. Medical History: Reports:: Anxiety, Depression Denies:: Cancer, Chronic Obstructive Pulmonary Dis
[2021-06-02 16:30] VITALS: BP 132/68; PULSE 60; O2SAT 95
[2021-06-02 17:00] VITALS: BP 129/69; PULSE 68; O2SAT 97
[2021-06-02 17:30] VITALS: BP 129/75; PULSE 62; O2SAT 96
[2021-06-02 17:58] VITALS: BP 129/75; PULSE 62; RESP 19; TEMP 36.9; O2SAT 96
== END 2021-06-02 18:00 | disposition home or self-care (01) ==
PROVIDERS: Emergency Provider Student in an Organized Health Care Education/Training Program; PCP Physician Assistant
DX: J06.9 Acute upper respiratory infection, unspecified (principal); Z20.822 Contact with and (suspected) exposure to COVID-19; F41.8 Other specified anxiety disorders; R53.1 Weakness
CPT/HCPCS: 71045; 99282; C9803; U0003; U0005

== ENCOUNTER 2021-06-11 17:21 | Emergency (ER) | payer MEDICARE, SELFPAY ==
[2021-06-11 18:30] VITALS: BP 118/69; PULSE 92; RESP 19; TEMP 37.1; O2SAT 97; BMI 20.5
--- NOTE | 2021-06-11 18:55 | HMH.EDUTC ---
[facility] [place] Disposition Clinical Impression: Cough, Exposure to COVID-19 virus Disposition: Home, Self-Care Condition on Discharge: Good Instructions: Cough, DI for COVID-19 (Suspected or Confirmed ), Preventing the Spread of Coronavirus Discharge Instructions Additional Instructions: *Monitor Temp, Over the counter Motrin or Tylenol as directed/as needed Tylenol every 4 hours and Motrin every 6 hours (as long as your family doctor has told you that you can take it) for fever or pain. and straight to ER if unable to lower temp less than 101.0 after medication given *Warm salt water gargles may help to soothe the throat *Throat Lozenges *Warm fluids like tea with honey may help to soothe the throat *Sleep elevated *Humidifier/Vaporizer Use Tessalon Perrles as prescribed for cough you said you still have some Follow up IMMEDIATELY for new or worsening symptoms or no Noticeable improvement over the next 48-72 hours. 911 for difficulty breathing or swallowing You were tested for today for COVID19 your test result should be back in the next 24-72 hours, you may check your results on the [facility] If you have trouble logging on you may call support If you are positive someone from the Hospital will be calling you Make sure to take your Vitamins Vit. C Vit D and Zinc if you can take them Referrals: Virginia Barbosa PA [Primary Care Provider] - As needed Time of Disposition: 19:35 Medical Decision Making - Marc Inquiry Pt receiving controlled substance: No Marc was queried for this patient: No Vital Signs: 06/11/21 18:30 06/11/21 19:29 Temperature 98.8 F 98.8 F Temperature Source Oral Pulse Rate 92 H Pulse Rate [Right Brachial] 92 H Respiratory Rate 19 19 Blood Pressure 118/69 Blood Pressure [Right Arm] 118/69 Blood Pressure Mean [Right Arm] 85 Blood Pressure Source [Right Arm] Automatic Cuff Blood Pressure Position [Right Arm] Sitting 02 Sat by Pulse Oximetry 97 Oxygen Delivery Method Room Air - Radiology Data #1 Image(s): Chest Image Reviewed: Yes I have reviewed radiologist's interpretation IMPRESSION: No acute findings. [facility] [place] HPI - General Stated complaint: Chest congestion,cough,tired Time Seen by Provider: 06/11/21 18:55 Mode of Arrival: Ambulatory Source of Information: Patient Limitations: No Limitations Description of Symptoms (Recalled from Triage Doc. by RN): PATIENT C/O COUGH, CHEST CONGESTION AND FATIGUE. REPORTS SHE WAS TREATED FOR BRONCHITIS AND PNEUMONIA THIS MONTH BUT IS STILL FEELING SICK HEENT Symptoms (Recalled from RN notes): No Resp Symptoms (Recalled from RN notes): Yes Skin Symptoms (Recalled from RN notes): No MS Symptoms (Recalled from RN notes): No Functional Status (Recalled from RN notes): WNL - History of Present Illness Provider Complaint: Patient states that she was seen about a month ago and treated for Pneumonia States that she finished her medication and was still having cough and congestion so she came back in and was dx with URI and bronchitis State that she is still having nagging cough and feels like she has some congestion in her chest but not coughing anything up States that she has been around several people with COVID and wanted to get tested - Related Data Previous Rx's Medication Instructions Recorded Azithromycin [Z-Lai 250mg Tab] 250 mg PO DIRECTED #6 tab 03/19/21 Benzonatate [Benzonatate 100mg 100 mg PO TID PRN #30 cap 03/19/21 cap] methylPREDNISolone [Medrol 4mg 4 mg PO DIRECTED #21 tab 03/19/21 tab] Doxycycline Monohydrate 100 mg PO Q12 #20 tab 05/22/21 [Doxycycline [place] 100mg Tab] Allergies Allergy/AdvReac Type Severity Reaction Status Date / Time amoxicillin [From Augmentin] Allergy Verified 10/20/20 13:52 cimetidine [From Tagamet] Allergy Verified 10/20/20 13:52 clavulanic acid Allergy Verified 10/20/20 13:52 [From Augmentin] codeine Allergy Verified 10/20/20 13:52 P
--- NOTE | 2021-06-11 18:58 | XR_ITS ---
PROCEDURE INFORMATION: Exam: XR Chest Exam date and time: 06/11/2021 6:58 PM Age: 65 years old Clinical indication: Cough; Additional info: Cough and congestion TECHNIQUE: Imaging protocol: XR of the chest. Views: 2 views. COMPARISON: CR XR CHEST PORTABLE 06/02/2021 4:15 PM FINDINGS: Lungs: Unremarkable. No consolidation. Pleural spaces: Unremarkable. No pleural effusion. No pneumothorax. Heart/Mediastinum: Unremarkable. No cardiomegaly. Bones/joints: Unremarkable. IMPRESSION: No acute findings.
[2021-06-11 19:29] VITALS: BP 118/69; PULSE 92; RESP 19; TEMP 37.1; O2SAT 97
== END 2021-06-11 19:59 | disposition home or self-care (01) ==
PROVIDERS: Emergency Provider Nurse Practitioner; PCP Physician Assistant
DX: Z20.822 Contact with and (suspected) exposure to COVID-19 (principal); R05.1 Acute cough; F41.8 Other specified anxiety disorders
CPT/HCPCS: G0463; 71046; 99202; C9803; U0003; U0005

== ENCOUNTER → 2021-08-21 16:22 | Outpatient (CLI) | payer MEDICARE, SELFPAY ==
[2021-08-21 18:55] LABS: Basophils # 0.1 K/mm3 (0-0.2); Eosinophils # 0.2 K/mm3 (0.0-0.4); Eosinophils % 3.4 % (0.1-12.0); Hemoglobin 13.7 g/dL (12.2-16.2); Lymphocytes # 3.3 K/mm3 (0.7-4.5); Lymphocytes % 45.4 % (10-50); Mean Corpuscular HGB Conc 34.2 g/dL (31.8-35.4); Mean Corpuscular Hemoglobin 32.7 pg (27.0-31.2); Mean Corpuscular Volume 95.5 fl (81-99); Mean Platelet Volume 8.7 fl (7.4-10.4); Monocytes # 0.4 K/mm3 (0.1-1.0); Monocytes % 5.4 % (1.7-9.3); Neutrophils # 3.2 K/mm3 (1.8-7.8); Neutrophils % 44.7 % (37.0-80.0); Platelet Count 297 K/mm3 (142-424); Red Blood Count 4.19 M/mm3 (4.20-5.40); Red Cell Distribution Width 14.1 % (11.5-17.5); White Blood Count 7.2 K/mm3 (4.8-10.8)
[2021-08-21 18:57] LABS: Alanine Aminotransferase 43 U/L (12-78); Albumin Level 4.5 g/dl (3.5-5.0); Albumin/Globulin Ratio 1.5 (1.1-1.8); Alkaline Phosphatase 117 U/L (38-126); Anion Gap 11.9 mEq/L (5-15); Aspartate Amino Transferase 41 U/L (14-36); Bilirubin,Total 0.5 mg/dl (0.2-1.3); Blood Urea Nitrogen 10 mg/dl (7-17); Calcium 9.2 mg/dl (8.4-10.2); Carbon Dioxide 26 mmol/L (22.0-30.0); Chloride 107 mmol/L (98-107); Cholesterol 245 mg/dl (140-200); Estimated Glomerular Filt Rate 100 ml/min (>60); GFR (African American) 121 ML/MIN (>60); Glucose 99 mg/dl (74-100); HDL Cholesterol 62 mg/dl (40-60); Magnesium 1.8 mg/dl (1.6-2.3); Potassium 3.9 mmoL/L (3.5-5.1); Sodium 141 mmol/L (136-145); Total Protein,Serum 7.5 g/dl (6.3-8.2); Triglycerides 174 mg/dl (30-150); VLDL Cholesterol 35 mg/dL (0-40)
[2021-08-21 19:09] LABS: Direct LDL Cholesterol 121.84 mg/dL (100-129)
[2021-08-21 19:17] LABS: 25-OH Vitamin D, Total 25.3 ng/mL (30-100)
[2021-08-21 19:28] LABS: Thyroid Stimulating Hormone 1.43 uIU/mL (0.465-4.68)
[2021-08-21 19:47] LABS: Vitamin B12 278 pg/mL (239-931)
== END ==
LOC: LAB.DROPOF 09-07 16:23
PROVIDERS: Visit Provider Physician Assistant
DX: Z00.00 Encounter for general adult medical examination without abnormal findings (principal); R53.83 Other fatigue; M79.652 Pain in left thigh; E55.9 Vitamin D deficiency, unspecified; Z79.899 Other long term (current) drug therapy
CPT/HCPCS: 80053; 80061; 82306; 82607; 83735; 84443; 85025; 85378

== ENCOUNTER 2021-11-04 09:14 | Emergency (ER) | payer MEDICARE, SELFPAY ==
[2021-11-04 09:25] VITALS: BP 101/60; PULSE 83; RESP 19; TEMP 36.8; O2SAT 98; BMI 20.2
--- NOTE | 2021-11-04 09:43 | HMH.EDUTC ---
[facility] [place] Disposition Clinical Impression: Viral syndrome Disposition: Home, Self-Care Condition on Discharge: Good Instructions: DI for Viral Syndrome, DI for COVID-19 (Suspected or Confirmed ), Preventing the Spread of Coronavirus Discharge Instructions Additional Instructions: *Monitor Temp, Over the counter Motrin or Tylenol as directed/as needed Tylenol every 4 hours and Motrin every 6 hours (as long as your family doctor has told you that you can take it) for fever or pain. and straight to ER if unable to lower temp less than 101.0 after medication given *Warm salt water gargles may help to soothe the throat *Throat Lozenges *Warm fluids like tea with honey may help to soothe the throat *Sleep elevated *Humidifier/Vaporizer Follow up IMMEDIATELY for new or worsening symptoms or no Noticeable improvement over the next 48-72 hours. 911 for difficulty breathing or swallowing You were tested for today for COVID19 your test result should be back in the next 24-48 hours, you may check your results on the [facility] [employer] [facility] Portal they may be available later this evening Make sure to take your Vitamins Vit. C Vit D and Zinc if you can take them Referrals: Virginia Barbosa PA [Primary Care Provider] - As needed Time of Disposition: 09:48 Medical Decision Making - Marc Inquiry Pt receiving controlled substance: No Marc was queried for this patient: No Vital Signs: 11/04/21 09:25 Temperature 98.2 F Temperature Source Oral Pulse Rate [Right Brachial] 83 Respiratory Rate 19 Blood Pressure [Right Arm] 101/60 L Blood Pressure Mean [Right Arm] 73 Blood Pressure Source [Right Arm] Automatic Cuff Blood Pressure Position [Right Arm] Sitting 02 Sat by Pulse Oximetry 98 Oxygen Delivery Method Room Air Orders (Tests/Meds): ORDERS Category Date Time Status Covid-19 Nasal PCR ([facility]) Routine Lab 11/04/21 09:16 Received [facility] [place] HPI - General Stated complaint: covid exposure with symptoms Time Seen by Provider: 11/04/21 09:43 Mode of Arrival: Ambulatory Source of Information: Patient Limitations: No Limitations Description of Symptoms (Recalled from Triage Doc. by RN): PATIENT C/O DIARRHEA, CONGESTION AND RUNNY NOSE THAT STARTED YESTERDAY. RECENTLY EXPOSED TO COVID HEENT Symptoms (Recalled from RN notes): Yes Resp Symptoms (Recalled from RN notes): No Skin Symptoms (Recalled from RN notes): No MS Symptoms (Recalled from RN notes): No Functional Status (Recalled from RN notes): WNL - History of Present Illness Provider Complaint: Patient state that he daughter recently tested positive for COVID States that yesterday she started having body aches, chills, headache and nausea so today she wanted to come in and get tested for COVID - Related Data Previous Rx's Medication Instructions Recorded cyclobenzaprine 5 mg tablet 5 mg PO BID PRN #60 tab 08/21/21 meloxicam 7.5 mg tablet 7.5 mg PO DAILY #30 tab 08/21/21 atorvastatin 10 mg tablet 10 mg PO DAILY #90 tab 08/23/21 cholecalciferol (vitamin D3) 1,250 1,250 mcg PO WEEKLY #14 cap 08/23/21 mcg (50,000 unit) capsule cholecalciferol (vitamin D3) 25 25 mcg PO DAILY #90 cap 08/23/21 mcg (1,000 unit) capsule cyanocobalamin (vitamin B-12) 5,000 mcg PO DAILY #90 tab 08/23/21 5,000 mcg disintegrating tablet Allergies Allergy/AdvReac Type Severity Reaction Status Date / Time amoxicillin [From Augmentin] Allergy Verified 08/21/21 14:55 cimetidine [From Tagamet] Allergy Verified 08/21/21 14:55 clavulanic acid Allergy Verified 08/21/21 14:55 [From Augmentin] codeine Allergy Verified 08/21/21 14:55 Penicillins Allergy Verified 08/21/21 14:55 - Worker's Comp Is this a Worker's Comp case?: No [facility] History - Hepatitis A Screen Attestation statement:: This patient has been screened for Hepatitis A risk factors. I have reviewed the patient's past medical history: Yes Medical History: Reports:: Anxiety, Depression Denies:: Cancer, [employer]gage And [employer]
[2021-11-04 09:51] VITALS: BP 101/60; PULSE 83; RESP 19; TEMP 36.8; O2SAT 98
== END 2021-11-04 09:57 | disposition home or self-care (01) ==
PROVIDERS: Emergency Provider Nurse Practitioner; PCP Physician Assistant
DX: U07.1 COVID-19 (principal); R19.7 Diarrhea, unspecified; R09.89 Other specified symptoms and signs involving the circulatory and respiratory systems
CPT/HCPCS: 99212; C9803; G0463; U0003; U0005

== ENCOUNTER 2021-12-22 03:52 | Emergency (ER) | payer MEDICARE, SELFPAY ==
[2021-12-22 03:54] VITALS: BP 125/59; PULSE 82; RESP 16; TEMP 36.6; O2SAT 97; BMI 19.9
[2021-12-22 04:02] VITALS: BP 125/59; PULSE 68; RESP 16; O2SAT 97
[2021-12-22 04:13] VITALS: BMI 19.9
--- NOTE | 2021-12-22 04:14 | CT_ITS ---
PROCEDURE INFORMATION: Exam: CT Abdomen And Pelvis With Contrast Exam date and time: 12/22/2021 4:55 AM Age: 66 years old Clinical indication: Abdominal pain; Generalized; Prior surgery; Surgery date: 6+ months; Surgery type: Gb; Additional info: Abd pain TECHNIQUE: Imaging protocol: Computed tomography of the abdomen and pelvis with contrast. Radiation optimization: All CT scans at this facility use at least one of these dose optimization techniques: automated exposure control; mA and/or kV adjustment per patient size (includes targeted exams where dose is matched to clinical indication); or iterative reconstruction. Contrast material: ISOVUE; Contrast volume: 75 ml; Contrast route: IV; COMPARISON: ABDWO MR abdomen wo con 09/17/2018 8:55 AM FINDINGS: Lungs: There is a 4 mm noncalcified right basilar nodule. There are a few 2 mm noncalcified nodules in the lateral aspect of the left lower lobe. Liver: There is a 1.0 cm cyst with a peripheral calcification or region of enhancement in the lateral aspect of the right hepatic dome essentially unchanged from the 09/27 MRI. Gallbladder and bile ducts: The gallbladder is surgically absent. Pancreas: Normal. No ductal dilation. Spleen: Normal. No splenomegaly. Adrenal glands: Normal. No mass. Kidneys and ureters: There is a 1.7 cm cyst in the lower zone of the right kidney. Stomach and bowel: No obstruction. There is a moderate amount of stool in the nondilated colon. Appendix: The appendix is not specifically demonstrated but there is no inflammatory change identified in the right lower quadrant. Intraperitoneal space: No free air. No significant fluid collection. Vasculature: No abdominal aortic aneurysm. Lymph nodes: There are no enlarged lymph nodes. Urinary bladder: Unremarkable as visualized. Reproductive: Unremarkable as visualized. Bones/joints: There are some mild degenerative changes of the spine. There also are degenerative changes of the hips. Soft tissues: Unremarkable. IMPRESSION: 1. There is no acute intra-abdominal abnormality. 2. 2-4 mm noncalcified basilar nodules. Correlation with remote CT recommended. In addition, as per Fleischner Society guidelines for follow-up and management of pulmonary nodules: For patients at low risk (minimal or absent history of smoking and of other known risk factors), no follow-up needed. For patient at high risk (history of smoking or of other known risk factors), recommend follow-up chest CT at 12 months; if unchanged, no further follow-up needed. COMMENTS: Consistent with the [employer]'s Incidental Findings Committee white paper (J Am Vadim Radiol 2018): Any incidental renal lesion less than 1 cm or classified as too small to characterize, or any incidental cystic renal lesion characterized as simple-appearing, is likely benign. No follow-up imaging is recommended for these lesions per consensus recommendations based on imaging criteria.
[2021-12-22 04:18] LABS: Microscopic, Urine URINE MICROSCOPIC (MICROSCOPIC)
[2021-12-22 04:20] LABS: Basophils # 0.1 K/mm3 (0-0.2); Basophils % 1.4 % (0.1-2.0); Eosinophils # 0.3 K/mm3 (0.0-0.4); Eosinophils % 4.6 % (0.1-12.0); Hematocrit 41.8 % (37.0-47.0); Hemoglobin 13.9 g/dL (12.2-16.2); Lymphocytes # 3.2 K/mm3 (0.7-4.5); Lymphocytes % 43.2 % (10-50); Mean Corpuscular HGB Conc 33.2 g/dL (31.8-35.4); Mean Corpuscular Volume 93.4 fl (81-99); Mean Platelet Volume 7.7 fl (7.4-10.4); Monocytes # 0.4 K/mm3 (0.1-1.0); Monocytes % 4.8 % (1.7-9.3); Neutrophils # 3.4 K/mm3 (1.8-7.8); Platelet Count 287 K/mm3 (142-424); Red Blood Count 4.47 M/mm3 (4.20-5.40); Red Cell Distribution Width 13.8 % (11.5-17.5); White Blood Count 7.5 K/mm3 (4.8-10.8)
[2021-12-22 04:21] LABS: Appearance,Urine CLEAR (Clear); Bilirubin,Urine Negative (Negative); Blood, Urine TRACE-I (Negative); Color,Urine YELLOW (Yellow); Glucose,Urine (UA) Negative (Negative); Ketones,Urine Negative (Negative); Leukocyte Esterase,Urine TRACE (Negative); Nitrate,Urine Negative (Negative); Protein,Urine Negative (Negative); Specific Gravity, Urine <= 1.005 (1.005-1.030); Urobilinogen,Urine 0.2 EU/dl (0.2)
[2021-12-22 04:26] LABS: Amorphous Sediment,Urine Trace /lpf
[2021-12-22 04:30] LABS: Alanine Aminotransferase 29 U/L (12-78); Albumin Level 4.7 g/dl (3.5-5.0); Albumin/Globulin Ratio 1.3 (1.1-1.8); Alkaline Phosphatase 138 U/L (38-126); Amylase 82 U/L (30-110); Anion Gap 12.3 mEq/L (5-15); Aspartate Amino Transferase 34 U/L (14-36); Bilirubin,Total 0.4 mg/dl (0.2-1.3); Blood Urea Nitrogen 12 mg/dl (7-17); Calcium 9.5 mg/dl (8.4-10.2); Carbon Dioxide 27 mmol/L (22.0-30.0); Chloride 106 mmol/L (98-107); Creatinine Clearance Estimated 47 mL/min (50-200); Estimated Glomerular Filt Rate 72 ml/min (>60); GFR (African American) 87 ML/MIN (>60); Globulin 3.5 g/dL (1.3-3.2); Glucose 90 mg/dl (74-100); Lipase 107 U/L (23-300); Potassium 3.3 mmoL/L (3.5-5.1); Sodium 142 mmol/L (136-145); Total Protein,Serum 8.2 g/dl (6.3-8.2)
--- NOTE | 2021-12-22 04:31 | HMH.EDNVD ---
ED Disposition Clinical Impression: RUQ abdominal pain, Sphincter of Oddi dysfunction Disposition: Home, Self-Care Condition on Discharge: Good Instructions: DI for Nausea -- Adult Additional Instructions: use meds and see pcp for follow up Prescriptions: Dicyclomine HCl [Bentyl 10mg capsule] 10 mg PO TID #21 cap Transmission Status: Pending to [id number] Referrals: Virginia Barbosa PA [Primary Care Provider] - - Critical Care Critical Care Time: No Attestation: On 12/22/21, the high probability of a clinically significant, sudden or life threatening deterioration of the following system(s) required my full and direct attention, intervention and personal management. The time I documented below is in addition to time spent performing reported procedures but includes the following listed in this critical care notation. Medical Decision Making - Medical Records Medical records reviewed: Yes: I reviewed the patient's medical records. - Marc Inquiry Pt receiving controlled substance: No Vital Signs: 12/22/21 03:54 Temperature 97.8 F Temperature Source Oral Pulse Rate [Left] 82 Respiratory Rate 16 Blood Pressure [Right Radial Artery] 125/59 L Blood Pressure Mean [Right Radial Artery] 81 02 Sat by Pulse Oximetry 97 Oxygen Delivery Method Room Air - Lab Data Lab results reviewed: Yes: I reviewed the patient's lab results. Lab Results 12/22/21 04:09: WBC 7.5, RBC 4.47, Hgb 13.9, Hct 41.8, MCV 93.4, MCH 31.0, MCHC 33.2, RDW 13.8, Plt Count 287, MPV 7.7, Neut % (Auto) 46.0, Lymph % (Auto) 43.2, [place] % (Auto) 4.8, Eos % (Auto) 4.6, Baso % (Auto) 1.4, Neut # (Auto) 3.4, Lymph # (Auto) 3.2, [place] # (Auto) 0.4, Eos # (Auto) 0.3, Baso # (Auto) 0.1, ESR 20 12/22/21 04:09: Sodium 142, Potassium 3.3 L, Chloride 106, Carbon Dioxide 27, Anion Gap 12.3, BUN 12, Creatinine 0.80, Estimated Creat Clear 47, Estimated GFR 72, Est GFR ( Amer) 87, Glucose 90, Calcium 9.5, Total Bilirubin 0.4, AST 34, ALT 29, Alkaline Phosphatase 138 H, C-Reactive Protein 1.9, Total Protein 8.2, Albumin 4.7, Globulin 3.5 H, Albumin/Globulin Ratio 1.3, Amylase 82, Lipase 107 12/22/21 04:12: Urine Color Yellow, Urine Appearance Clear, Urine pH 6.0, Ur Specific [place] <= 1.005, Urine Protein Negative, Urine Glucose (UA) Negative, Urine Ketones Negative, Urine Blood Trace-i, Urine Nitrate Negative, Urine Bilirubin Negative, Urine Urobilinogen 0.2, Ur Leukocyte Esterase Trace, Urine RBC 3-5, Urine WBC 3-5, Amorphous Sediment Trace Result diagrams: 12/22/21 04:09 12/22/21 04:09 Orders (Tests/Meds): ED MEDICATIONS Generic Name Dose Route Start Last Admin Trade Name Freq PRN Reason Stop Dose Admin Sodium Chloride 8 ml 12/22/21 04:14 Sodium Chloride 0.9% 10ml Vial IV 01/21/22 04:13 NEEDED PRN dilute pepcid Discontinued Medications Generic Name Dose Route Start Last Admin Trade Name Freq PRN Reason Stop Dose Admin Famotidine 20 mg 12/22/21 04:14 12/22/21 04:26 Famotidine 20mg/2ml Vial IV 12/22/21 04:15 20 mg ONCE ONE Administration Sodium Chloride 1,000 mls @ 999 mls/hr 12/22/21 04:15 12/22/21 04:26 Sod Chlor 0.9% 1000ml Bag IV 12/22/21 05:15 999 mls/hr .Q1H1M SAMUEL Administration Iopamidol 75 ml 12/22/21 05:06 12/22/21 05:08 Iopamidol-370 (76%);100ml Bottle IV 12/22/21 05:07 75 ml ONCE ONE Administration Ketorolac Tromethamine 30 mg 12/22/21 04:14 12/22/21 04:26 Ketorolac 30mg/Ml Vial IV 12/22/21 04:15 30 mg ONCE ONE Administration Metoclopramide HCl 10 mg 12/22/21 04:14 12/22/21 04:26 Metoclopramide Hcl 10mg/2ml Vial IVP 12/22/21 04:15 10 mg ONCE ONE Administration Ondansetron HCl 4 mg 12/22/21 04:14 12/22/21 04:26 Ondansetron 4mg/2ml Vial IV 12/22/21 04:15 4 mg ONCE ONE Administration Sodium Chloride 10 ml 12/22/21 05:06 12/22/21 05:08 Sodium Chloride 0.9% 10ml Syr (Rad Only) IV 12/22/21 05:07 10 ml ONCE ONE A
[2021-12-22 04:35] LABS: C-Reactive Protein 1.9 mg/L (0-4)
[2021-12-22 05:45] LABS: Erythrocyte Sedimentation Rate 20 mm/hr (0-30)
--- NOTE | 2021-12-22 05:50 | PC.NURSE ---
pt ambulated to and was updated on awaiting ct results
[2021-12-22 06:30] VITALS: BP 111/57; PULSE 70; RESP 18; O2SAT 97
--- NOTE | 2021-12-22 06:35 | PC.NURSE ---
called xray and asked them to check on status of reading ct results
[2021-12-22 07:00] VITALS: BP 118/54; PULSE 65; RESP 15; O2SAT 98
[2021-12-22 07:30] VITALS: BP 118/54; PULSE 69; RESP 16; TEMP 36.6; O2SAT 98
== END 2021-12-22 07:30 | disposition home or self-care (01) ==
PROVIDERS: Emergency Provider Emergency Medicine; PCP Physician Assistant
DX: R10.11 Right upper quadrant pain (principal); K83.09 Other cholangitis
CPT/HCPCS: 74177; 80053; 81001; 82150; 83690; 85025; 85651; 86140; 96361; 96374; 96375; 99284; J2405; Q9967

== ENCOUNTER 2022-01-10 15:38 | Emergency (ER) | payer MEDICARE, SELFPAY ==
[2022-01-10 16:04] VITALS: BP 125/68; PULSE 103; RESP 18; TEMP 37.9; O2SAT 96
--- NOTE | 2022-01-10 16:06 | EXP.UTC ---
Discharge Plan Disposition Patient Disposition: Home, Self-Care Condition: Good Prescriptions Prescriptions: New azithromycin [Zithromax] 250 mg tablet 250 mg PO UD DOSE PK Qty: 6 0RF Rx Instructions: Take two (2) tablets today, then one (1) tablet days #2 thru #5 benzonatate [benzonatate] 100 mg capsule 100 mg PO TIDP PRN (Reason: Cough) Qty: 30 0RF ondansetron 4 mg Tablet,Disintegrating 4 mg PO Q8H PRN (Reason: Nausea) Qty: 20 0RF No Action meloxicam [Mobic] 7.5 mg tablet 7.5 mg PO DAILY Qty: 30 2RF cyclobenzaprine 5 mg tablet 5 mg PO BID PRN (Reason: muscle spasm) Qty: 60 0RF dicyclomine 10 mg capsule 10 mg PO TID Qty: 63 0RF atorvastatin [Lipitor] 10 mg tablet 10 mg PO DAILY Qty: 90 3RF cyanocobalamin (vitamin B-12) 5,000 mcg tablet,disintegrating 5,000 mcg PO DAILY Qty: 90 3RF cholecalciferol (vitamin D3) 25 mcg (1,000 unit) capsule 25 mcg PO DAILY Qty: 90 3RF cholecalciferol (vitamin D3) 1,250 mcg (50,000 unit) capsule 1,250 mcg PO WEEKLY Qty: 14 1RF Referrals Follow up/Referrals: Virginia Barbosa PA [Primary Care Provider] - See instructions Activity Restrictions/Add. Instructions Additional Instructions/Restrictions: Drink plenty of fluids. Take tylenol or ibuprofen for pain or fever. Take the medications as directed. Follow up with your regular doctor. GO TO THE ER FOR ANY WORSENING SYMPTOMS Clinical Impressions Clinical Impression: Sinusitis Instructions Patient Instructions: Sinusitis, DI for Sinusitis Discharge ED Provider: Murali uGevara [facility] [place] General Stated complaint: weakness, body aches Time Seen by Provider: 01/10/22 16:06 History of Present Illness Provider Complaint: She states that for the past 2 days she has had sinus congestion, runny nose, voice hoarseness, and a dry cough. She denies any covid-19 exposure. She refuses any covid-19 or viral testing today. Related Data Previous Rx's Medication Instructions Recorded cyclobenzaprine 5 mg tablet 5 mg PO BID PRN muscle spasm #60 08/21/21 tabs meloxicam 7.5 mg tablet (Mobic) 7.5 mg PO DAILY #30 tabs 08/21/21 atorvastatin 10 mg tablet (Lipitor) 10 mg PO DAILY #90 tabs 08/23/21 cholecalciferol (vitamin D3) 1,250 1,250 mcg PO WEEKLY #14 caps 08/23/21 mcg (50,000 unit) capsule cholecalciferol (vitamin D3) 25 25 mcg PO DAILY #90 caps 08/23/21 mcg (1,000 unit) capsule cyanocobalamin (vitamin B-12) 5,000 mcg PO DAILY #90 tabs 08/23/21 5,000 mcg disintegrating tablet dicyclomine 10 mg capsule 10 mg PO TID #63 caps 01/04/22 azithromycin 250 mg tablet 250 mg PO UD DOSE PK #6 tabs 01/10/22 (Zithromax) benzonatate 100 mg capsule 100 mg PO TIDP PRN Cough #30 caps 01/10/22 ondansetron 4 mg disintegrating 4 mg PO Q8H PRN Nausea #20 tabs 01/10/22 tablet Allergies Allergy/AdvReac Type Severity Reaction Status Date / Time amoxicillin [From Augmentin] Allergy Verified 01/10/22 16:07 cimetidine [From Tagamet] Allergy Verified 01/10/22 16:07 clavulanic acid Allergy Verified 01/10/22 16:07 [From Augmentin] codeine Allergy Verified 01/10/22 16:07 Penicillins Allergy Verified 01/10/22 16:07 PFSH PFSH Medical History Anxiety Depression Hypotension RUQ abdominal pain Social History Smoking Status: Never smoker alcohol intake: never substance use type: denies use current occupational status: other Travel in the last 8 weeks: None housing: house current occupational exposures/hazards: No caffeine: No ROS Obtained: Yes All systems reviewed & no additional complaints except as documented Constitutional Constitutional: Reports chills and Reports fever(s) Eyes Eyes: Denies eye discharge ENT Ears, Nose, Mouth, and Throat: Reports as per HPI Cardiovascular Cardiovascular: Denies chest pain Respiratory Respiratory:
[2022-01-10 16:30] VITALS: BP 125/68; PULSE 103; RESP 18; TEMP 37.9
== END 2022-01-10 16:32 | disposition home or self-care (01) ==
PROVIDERS: Emergency Provider Nurse Practitioner Family; PCP Physician Assistant
DX: J32.9 Chronic sinusitis, unspecified (principal)
CPT/HCPCS: 99212; G0463

== ENCOUNTER 2022-06-05 13:23 | Emergency (ER) | payer MEDICARE, SELFPAY ==
[2022-06-05 13:55] VITALS: BP 136/89; PULSE 106; RESP 18; TEMP 37.7; O2SAT 100; BMI 21.7
[2022-06-05 14:18] LABS: UTC Influenza A Antigen Negative (Negative); UTC Influenza B Antigen Negative (Negative)
--- NOTE | 2022-06-05 14:27 | EXP.UTC ---
Discharge Plan Disposition Patient Disposition: Home, Self-Care Condition: Good Prescriptions Prescriptions: New benzonatate 100 mg capsule 100 mg PO TID PRN (Reason: cough) Qty: 30 0RF azithromycin [Zithromax Z-Lai] 250 mg tablet See Rx Instructions .ROUTE .COMPLEX 5 Days Qty: 6 0RF Rx Instructions: For 250 mg dose pack: take 500 mg today (day 1), then 250 mg for 4 days (days 2-5) No Action dicyclomine 10 mg capsule 10 mg PO TID Qty: 63 0RF atorvastatin [Lipitor] 10 mg tablet 10 mg PO DAILY Qty: 90 3RF cyanocobalamin (vitamin B-12) 5,000 mcg tablet,disintegrating 5,000 mcg PO DAILY Qty: 90 3RF cholecalciferol (vitamin D3) 25 mcg (1,000 unit) capsule 25 mcg PO DAILY Qty: 90 3RF cholecalciferol (vitamin D3) 1,250 mcg (50,000 unit) capsule 1,250 mcg PO WEEKLY Qty: 14 1RF meloxicam 7.5 mg tablet See Rx Instructions .ROUTE .COMPLEX Qty: 30 0RF Dose Instruction: Take 1 tablet by mouth once daily Rx Instructions: Take 1 tablet by mouth once daily cyclobenzaprine 5 mg tablet See Rx Instructions .ROUTE .COMPLEX Qty: 60 0RF Dose Instruction: TAKE 1 TABLET BY MOUTH TWICE DAILY NEEDED FOR MUSCLE SPASM Rx Instructions: TAKE 1 TABLET BY MOUTH TWICE DAILY NEEDED FOR MUSCLE SPASM azithromycin [Zithromax] 250 mg tablet 250 mg PO UD DOSE PK Qty: 6 0RF Rx Instructions: Take two (2) tablets today, then one (1) tablet days #2 thru #5 benzonatate [benzonatate] 100 mg capsule 100 mg PO TIDP PRN (Reason: Cough) Qty: 30 0RF ondansetron 4 mg Tablet,Disintegrating 4 mg PO Q8H PRN (Reason: Nausea) Qty: 20 0RF Referrals Follow up/Referrals: Virginia Barbosa PA [Primary Care Provider] - See instructions Activity Restrictions/Add. Instructions Additional Instructions/Restrictions: *Monitor Temp, Over the counter Motrin or Tylenol as directed/as needed Tylenol every 4 hours and Motrin every 6 hours (as long as your family doctor has told you that you can take it) for fever or pain. and straight to ER if unable to lower temp less than 101.0 after medication given *Warm salt water gargles may help to soothe the throat *Throat Lozenges? *Warm fluids like tea with honey may help to soothe the throat? *Sleep elevated *Humidifier/Vaporizer *Flonase 2 sprays in each nostril daily but be aware that it may take 2-3 days before you notice improvement *Bromfed may cause drowsiness. Know how it effects you (your child) before driving, caring for small child, or sending your child to school. Not other antihistamines/allergy medications while taking bromfed Your throat swab was sent for culture. Those results are typically sent to your primary care. Be sure to follow up in 2-3 days with your family doctor/primary care physician if no improvement so they can review those result and treat if necessary. If you don?t have a primary care doctor, I recommend you get one but in the mean time, you will have to return to a walk in clinic Follow up IMMEDIATELY for new or worsening symptoms or no Noticeable improvement over the next 48-72 hours. 911 for difficulty breathing or swallowing You were tested for today for COVID19 your test result should be back in the next 24-48 hours, you may check your results on the [facility] [employer] [facility] Portal Clinical Impressions Clinical Impression: Sinusitis Qualifiers: Sinusitis location: unspecified location Chronicity: unspecified Qualified Code(s): J32.9 - Chronic sinusitis, unspecified Instructions Patient Instructions: Sinusitis, DI for Sinusitis Discharge ED Provider: Kecia Ureña [facility] [place] HPI General Stated complaint: congestion, cough, body aches, PA Mode of Arrival: Ambulatory Source of Information: Patient Limitations: No Limitations Time Seen by Provider: 06/05/22 14:27 Description of Symptoms (Recalled from Triage Doc. by RN): PATIENT C/O COUGH, CONGESTION, BODY ACHES, FATIGUE, AND HEA
[2022-06-05 14:37] VITALS: BP 136/89; PULSE 106; RESP 18; TEMP 37.7; O2SAT 100
== END 2022-06-05 14:45 | disposition home or self-care (01) ==
PROVIDERS: Emergency Provider Nurse Practitioner; PCP Physician Assistant
DX: J32.9 Chronic sinusitis, unspecified (principal)
CPT/HCPCS: 87804; 99212; 99213; C9803; G0463; U0003; U0005

== ENCOUNTER 2022-07-11 17:45 | Emergency (ER) | payer MEDICARE, SELFPAY ==
--- NOTE | 2022-07-11 19:02 | EXP.UTC ---
Discharge Plan Disposition Patient Disposition: Home, Self-Care Condition: Good Prescriptions Prescriptions: New azithromycin [Zithromax] 250 mg tablet 250 mg PO UD DOSE PK Qty: 6 0RF Rx Instructions: Take two (2) tablets today, then one (1) tablet days #2 thru #5 benzonatate [benzonatate] 100 mg capsule 100 mg PO TIDP PRN (Reason: Cough) Qty: 30 0RF lidocaine HCl [Lidocaine Viscous] 2 % solution 1 applic mucous membrane QID PRN (Reason: pain) Qty: 60 0RF No Action dicyclomine 10 mg capsule 10 mg PO TID Qty: 63 0RF atorvastatin [Lipitor] 10 mg tablet 10 mg PO DAILY Qty: 90 3RF cyanocobalamin (vitamin B-12) 5,000 mcg tablet,disintegrating 5,000 mcg PO DAILY Qty: 90 3RF cholecalciferol (vitamin D3) 25 mcg (1,000 unit) capsule 25 mcg PO DAILY Qty: 90 3RF cholecalciferol (vitamin D3) 1,250 mcg (50,000 unit) capsule 1,250 mcg PO WEEKLY Qty: 14 1RF meloxicam 7.5 mg tablet See Rx Instructions .ROUTE .COMPLEX Qty: 30 0RF Dose Instruction: Take 1 tablet by mouth once daily Rx Instructions: Take 1 tablet by mouth once daily cyclobenzaprine 5 mg tablet See Rx Instructions .ROUTE .COMPLEX Qty: 60 0RF Dose Instruction: TAKE 1 TABLET BY MOUTH TWICE DAILY NEEDED FOR MUSCLE SPASM Rx Instructions: TAKE 1 TABLET BY MOUTH TWICE DAILY NEEDED FOR MUSCLE SPASM Referrals Follow up/Referrals: Virginia Barbosa PA [Primary Care Provider] - See instructions Activity Restrictions/Add. Instructions Additional Instructions/Restrictions: Drink plenty of fluids. Take tylenol or ibuprofen for pain or fever. Take the medications as directed. Follow up with your regular doctor. GO TO THE ER FOR ANY WORSENING SYMPTOMS You could put the viscous lidocaine the we prescribed on the sore area on your tongue as directed for pain. Clinical Impressions Clinical Impression: Pharyngitis, Acute viral syndrome Instructions Patient Instructions: DI for Pharyngitis/Tonsillopharyngitis -- Adult, DI for Viral Syndrome Discharge ED Provider: Murali Guevara [facility] [place] HPI General Stated complaint: Sore throat, mouth sore Body aches Time Seen by Provider: 07/11/22 19:02 History of Present Illness Provider Complaint: She states that for the past 4 days she has had chills, low grade fever, sore throat, and sinus congestion. Related Data Previous Rx's Medication Instructions Recorded atorvastatin 10 mg tablet (Lipitor) 10 mg PO DAILY #90 tabs 08/23/21 cholecalciferol (vitamin D3) 1,250 1,250 mcg PO WEEKLY #14 caps 08/23/21 mcg (50,000 unit) capsule cholecalciferol (vitamin D3) 25 25 mcg PO DAILY #90 caps 08/23/21 mcg (1,000 unit) capsule cyanocobalamin (vitamin B-12) 5,000 mcg PO DAILY #90 tabs 08/23/21 5,000 mcg disintegrating tablet dicyclomine 10 mg capsule 10 mg PO TID #63 caps 01/04/22 cyclobenzaprine 5 mg tablet See Rx Instructions .Route 03/19/22 .COMPLEX #60 tabs meloxicam 7.5 mg tablet See Rx Instructions .Route 03/19/22 .COMPLEX #30 tabs azithromycin 250 mg tablet 250 mg PO UD DOSE PK #6 tabs 07/11/22 (Zithromax) benzonatate 100 mg capsule 100 mg PO TIDP PRN Cough #30 caps 07/11/22 lidocaine HCl 2 % mucosal solution 1 applic mucous membrane QID PRN 07/11/22 (Lidocaine Viscous) pain #60 mL Allergies Allergy/AdvReac Type Severity Reaction Status Date / Time amoxicillin [From Augmentin] Allergy Verified 07/11/22 19:23 cimetidine [From Tagamet] Allergy Verified 07/11/22 19:23 clavulanic acid Allergy Verified 07/11/22 19:23 [From Augmentin] codeine Allergy Verified 07/11/22 19:23 Penicillins Allergy Verified 07/11/22 19:23 [facility] Disclaimer: The information contained in this section may have been updated after the patient was seen, as this information can be updated by other users. Medical History Anxiety COPD (chronic obstructive pulmonary diseas
[2022-07-11 19:08] LABS: UTC Strep Screen (Rapid) Negative (Negative)
[2022-07-11 19:10] VITALS: BP 153/75; PULSE 89; RESP 20; TEMP 36.6; O2SAT 97; BMI 20.9
[2022-07-11 20:09] VITALS: BP 153/75; PULSE 89; RESP 20; TEMP 36.6; O2SAT 97
== END 2022-07-11 20:08 | disposition home or self-care (01) ==
PROVIDERS: Emergency Provider Nurse Practitioner Family; PCP Physician Assistant
DX: J02.9 Acute pharyngitis, unspecified (principal); B34.9 Viral infection, unspecified
CPT/HCPCS: 87880; 99212; 99213; G0463

== ENCOUNTER → 2022-08-19 10:21 | Outpatient (CLI) | payer MEDICARE, SELFPAY ==
[2022-08-19 15:26] LABS: Basophils # 0.1 K/mm3 (0-0.2); Eosinophils # 0.2 K/mm3 (0.0-0.4); Eosinophils % 2.7 % (0.1-12.0); Hematocrit 42.5 % (37.0-47.0); Hemoglobin 14.4 g/dL (12.2-16.2); Lymphocytes # 3.3 K/mm3 (0.7-4.5); Lymphocytes % 39.9 % (10-50); Mean Corpuscular HGB Conc 33.9 g/dL (31.8-35.4); Mean Corpuscular Hemoglobin 31.3 pg (27.0-31.2); Mean Corpuscular Volume 92.1 fl (81-99); Mean Platelet Volume 8.6 fl (7.4-10.4); Monocytes # 0.4 K/mm3 (0.1-1.0); Monocytes % 4.9 % (1.7-9.3); Neutrophils # 4.3 K/mm3 (1.8-7.8); Neutrophils % 51.5 % (37.0-80.0); Platelet Count 271 K/mm3 (142-424); Red Blood Count 4.61 M/mm3 (4.20-5.40); White Blood Count 8.3 K/mm3 (4.8-10.8)
[2022-08-19 16:01] LABS: Alanine Aminotransferase 23 U/L (12-78); Albumin Level 4.7 g/dl (3.5-5.0); Albumin/Globulin Ratio 1.7 (1.1-1.8); Alkaline Phosphatase 142 U/L (38-126); Anion Gap 9.8 mEq/L (5-15); Aspartate Amino Transferase 31 U/L (14-36); Bilirubin,Total 0.5 mg/dl (0.2-1.3); Blood Urea Nitrogen 22 mg/dl (7-17); Carbon Dioxide 24 mmol/L (22.0-30.0); Chloride 106 mmol/L (98-107); Cholesterol 202 mg/dl (140-200); Estimated Glomerular Filt Rate 72 ml/min (>60); GFR (African American) 87 ML/MIN (>60); Globulin 2.8 g/dL (1.3-3.2); Glucose 99 mg/dl (74-100); HDL Cholesterol 50 mg/dl (40-60); Potassium 3.8 mmoL/L (3.5-5.1); Sodium 136 mmol/L (136-145); Total Protein,Serum 7.5 g/dl (6.3-8.2); Triglycerides 206 mg/dl (30-150); VLDL Cholesterol 41 mg/dL (0-40)
[2022-08-19 16:18] LABS: 25-OH Vitamin D, Total 83.7 ng/mL (30-100); Direct LDL Cholesterol 106.89 mg/dL (100-129)
[2022-08-19 16:31] LABS: Thyroid Stimulating Hormone 3.46 uIU/mL (0.465-4.68)
[2022-08-19 16:55] LABS: Vitamin B12 > 1000 pg/mL (239-931)
[2022-08-20 16:35] LABS: Intact Parathyroid Hormone 35.3 pg/mL (7.5-53.5)
== END ==
PROVIDERS: PCP Physician Assistant; Visit Provider Physician Assistant
DX: E78.5 Hyperlipidemia, unspecified (principal); Z00.00 Encounter for general adult medical examination without abnormal findings; R09.89 Other specified symptoms and signs involving the circulatory and respiratory systems; E53.8 Deficiency of other specified B group vitamins; E55.9 Vitamin D deficiency, unspecified
CPT/HCPCS: 80053; 80061; 82306; 82607; 83970; 84443; 85025

== ENCOUNTER → 2022-09-25 11:30 | Outpatient (CLI) | payer MEDICARE, SELFPAY ==
--- NOTE | 2022-09-25 11:37 | XR_ITS ---
FINAL REPORT CLINICAL HISTORY: left wrist pain s/p ORIF COMPARISON: 10/20/2020 FINDINGS: Left wrist Three views were obtained. There are postoperative changes in the distal radius from ORIF. Screw plate and multiple screws are present. The bony alignment is stable since prior exam dated 10/20/2020. 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 There are mild degenerative changes at the radial aspect of the wrist. IMPRESSION: Degenerative and postsurgical changes as detailed above. Reviewed, Interpreted and Dictated by Celio Tovar III, MD Transcribed by Ayde Wall Authenticated and . [facility]
[2022-09-25 18:52] LABS: Basophils # 0.1 K/mm3 (0-0.2); Basophils % 0.9 % (0.1-2.0); Eosinophils # 0.2 K/mm3 (0.0-0.4); Eosinophils % 2.2 % (0.1-12.0); Hematocrit 40.8 % (37.0-47.0); Hemoglobin 13.7 g/dL (12.2-16.2); Lymphocytes # 2.9 K/mm3 (0.7-4.5); Lymphocytes % 41.8 % (10-50); Mean Corpuscular HGB Conc 33.5 g/dL (31.8-35.4); Mean Corpuscular Hemoglobin 31.4 pg (27.0-31.2); Mean Corpuscular Volume 93.7 fl (81-99); Mean Platelet Volume 9.1 fl (7.4-10.4); Monocytes # 0.4 K/mm3 (0.1-1.0); Monocytes % 5.6 % (1.7-9.3); Neutrophils # 3.4 K/mm3 (1.8-7.8); Neutrophils % 49.5 % (37.0-80.0); Platelet Count 279 K/mm3 (142-424); Red Blood Count 4.36 M/mm3 (4.20-5.40); Red Cell Distribution Width 14.2 % (11.5-17.5); White Blood Count 6.9 K/mm3 (4.8-10.8)
[2022-09-25 19:06] LABS: Alanine Aminotransferase 38 U/L (12-78); Albumin Level 4.4 g/dl (3.5-5.0); Albumin/Globulin Ratio 1.6 (1.1-1.8); Alkaline Phosphatase 119 U/L (38-126); Anion Gap 17.8 mEq/L (5-15); Aspartate Amino Transferase 45 U/L (14-36); Bilirubin,Total 0.6 mg/dl (0.2-1.3); Blood Urea Nitrogen 13 mg/dl (7-17); Carbon Dioxide 22 mmol/L (22.0-30.0); Chloride 101 mmol/L (98-107); Chol/HDL Ratio 2.7 (1-3.5); Cholesterol 158 mg/dl (140-200); Estimated Glomerular Filt Rate 84 ml/min (>60); GFR (African American) 101 ML/MIN (>60); Globulin 2.7 g/dL (1.3-3.2); Glucose 101 mg/dl (74-100); HDL Cholesterol 59 mg/dl (40-60); Potassium 3.8 mmoL/L (3.5-5.1); Sodium 137 mmol/L (136-145); Total Protein,Serum 7.1 g/dl (6.3-8.2); Triglycerides 145 mg/dl (30-150); VLDL Cholesterol 29 mg/dL (0-40)
[2022-09-25 19:20] LABS: Direct LDL Cholesterol 77.78 mg/dL (100-129)
[2022-09-25 19:22] LABS: 25-OH Vitamin D, Total 76.6 ng/mL (30-100)
[2022-09-25 19:31] LABS: C-Reactive Protein 1.1 mg/L (0-4)
[2022-09-25 19:36] LABS: Erythrocyte Sedimentation Rate 13 mm/hr (0-30)
[2022-09-25 19:37] LABS: Thyroid Stimulating Hormone 1.32 uIU/mL (0.465-4.68)
[2022-09-27 16:14] LABS: Anti-Centromere B Antibodies <0.2 AI (0.0-0.9); Anti-DNA (DS) Ab Qn <1 IU/mL (0-9); Anti-Jo-1 <0.2 AI (0.0-0.9); Anti-Smith Antibody <0.2 AI (0.0-0.9); Antichromatin Antibodies <0.2 AI (0.0-0.9); Antiscleroderma-70 Antibodies <0.2 AI (0.0-0.9); RNP Antibodies <0.2 AI (0.0-0.9); Sjogren's Anti-SS-A <0.2 AI (0.0-0.9); Sjogren's Anti-SS-B <0.2 AI (0.0-0.9)
== END ==
LOC: LAB.DROPOF 11:32
PROVIDERS: PCP Physician Assistant; Visit Provider Physician Assistant
DX: M25.532 Pain in left wrist (principal); R53.83 Other fatigue; E55.9 Vitamin D deficiency, unspecified; M79.7 Fibromyalgia; E78.5 Hyperlipidemia, unspecified
CPT/HCPCS: 73110; 80053; 80061; 82306; 84443; 85025; 85651; 86140; 86225; 86235

== ENCOUNTER → 2022-10-03 13:20 | Outpatient (CLI) | payer MEDICARE, SELFPAY ==
--- NOTE | 2022-10-03 13:20 | MM_ITS ---
PROCEDURE INFORMATION: Exam: MG Bilateral Screening 3D Mammography Exam date and time: 10/03/2022 1:17 PM Age: 67 years old Clinical indication: Screening examination TECHNIQUE: Imaging protocol: Bilateral Screening tomosynthesis and 2D mammography including computer-aided detection (CAD) when performed. COMPARISON: MG SCBI MM Dig screening mamm BI w/CAD 06/17/2017 9:46 AM FINDINGS: MAMMOGRAPHY: Breast composition: There are scattered areas of fibroglandular density. Mass: None. Architectural distortion: None. Calcifications: No suspicious calcifications. Asymmetric density: None. Skin thickening: None. Axillary adenopathy: None. IMPRESSION: No mammographic evidence of malignancy. Annual screening is recommended unless otherwise clinically indicated. ASSESSMENT: BI-RADS Category 1: Negative
== END ==
PROVIDERS: PCP Physician Assistant; Visit Provider Physician Assistant
DX: Z12.31 Encounter for screening mammogram for malignant neoplasm of breast (principal)
CPT/HCPCS: 77063; 77067

== ENCOUNTER → 2022-10-08 08:49 | Outpatient (CLI) | payer MEDICARE, SELFPAY ==
--- NOTE | 2022-10-08 08:49 | XR_ITS ---
FINAL REPORT TECHNIQUE: Bone densitometry calculations of the lumbar spine and left hip were obtained. CLINICAL HISTORY: post menopausal FINDINGS: Using L1-4, the bone mineral density of the spine is 0.866 g/cm2, corresponding to T-score of -1.6. Using the left hip, the bone mineral density of the femoral neck is 0.627 g/cm2, corresponding to a T-score of -2.6. Using the right hip, the bone mineral density of the femoral neck is 0.709 g/cm2, corresponding to a T-score of -1.9. NOTE: T-score: Standard deviation compared with peak bone mass of young adult mean. *Following the recommendations of the International Society of Bone densitometry, classification of hip BMD is based on the lower of two T-scores; total hip or femoral neck. IMPRESSION: Diminished bone mineral density of the right hip and spine consistent with osteopenia. Diminished bone mineral density of the left hip consistent with osteoporosis. Reviewed, Interpreted and Dictated by Juan Carlos Beckwith MD Transcribed by Ayde Wall Authenticated and [facility]
== END ==
PROVIDERS: PCP Physician Assistant; Visit Provider Physician Assistant
DX: Z78.0 Asymptomatic menopausal state (principal)
CPT/HCPCS: 77080

== ENCOUNTER 2022-11-02 15:24 | Emergency (ER) | payer MEDICARE, SELFPAY ==
[2022-11-02 15:30] VITALS: BP 144/72; PULSE 92; RESP 18; TEMP 37.1; O2SAT 98; BMI 22.2
[2022-11-02 15:44] LABS: Apearance,Urine Clear (Clear); Bilirubin,Urine Negative (Negative); Blood, Urine Trace (Negative); Color,Urine Yellow (Yellow); Glucose,Urine (UA) Negative (Negative); Ketones,Urine Negative (Negative); PH,Urine 5.5 (5.0-8.5); Protein,Urine Negative (Negative); Specific Gravity, Urine 1.015 (1.005-1.030); UTC Leukocyte Esterase,Urine Negative (Negative); UTC Nitrate,Urine Negative (Negative); Urobilinogen,Urine 0.2 EU/dl (0.2)
--- NOTE | 2022-11-02 16:18 | EXP.UTC ---
Discharge Plan Disposition Patient Disposition: Home, Self-Care Condition: Good Prescriptions Prescriptions: New cephalexin [cephalexin] 500 mg tablet 500 mg PO BID 7 Days Qty: 14 0RF No Action fluticasone propionate [Flonase Allergy Relief] 50 mcg/actuation spray,suspension 1 spray intranasal QDAY 30 Days Qty: 9.9 2RF Rx Instructions: administer into each nostril quetiapine [Seroquel] 25 mg tablet 25 mg PO HS atorvastatin [Lipitor] 10 mg tablet 10 mg PO DAILY alendronate [Fosamax] 70 mg tablet 70 mg PO WEEKLY meloxicam 7.5 mg tablet See Rx Instructions .ROUTE .COMPLEX Rx Instructions: Take 1 tablet by mouth once daily cholecalciferol (vitamin D3) 25 mcg (1,000 unit) capsule 25 mcg PO DAILY cyclobenzaprine 5 mg tablet See Rx Instructions .ROUTE .COMPLEX Rx Instructions: TAKE 1 TABLET BY MOUTH TWICE DAILY NEEDED FOR MUSCLE SPASM duloxetine [Cymbalta] 30 mg capsule,delayed release(DR/EC) 30 mg PO DAILY cholecalciferol (vitamin D3) 1,250 mcg (50,000 unit) capsule 1,250 mcg PO WEEKLY cyanocobalamin (vitamin B-12) 5,000 mcg tablet,disintegrating 5,000 mcg PO DAILY Referrals Follow up/Referrals: Virginia Barbosa PA [Primary Care Provider] - See instructions Activity Restrictions/Add. Instructions Additional Instructions/Restrictions: Increase fluids, water and not soda or tea. Can drink cranberry juice or cranberry extract. Wipe front to back Wear cotton underwear Empty bladder after intercourse Start antibiotics immediately and make sure you take the full course although you may start to see improvement over the next 48 hours. You can eat yogurt or take probiotics to decrease diarrhea or yeast infection caused by the antibiotic Be sure to follow-up anytime for new or worsening symptoms in 48 hours for wound urine culture results be sure to let you PCP no recent urine for culture so they can request records and ensure that you have appropriate antibiotic if you are not getting better or getting worse. If symptoms worsen or do not improve return or be seen in the ER. Follow-up with primary care this week. Clinical Impressions Clinical Impression: Acute UTI Instructions Patient Instructions: DI for Urinary Tract Infection (UTI) Discharge ED Provider: Pauline ([facility])[place] HPI General Stated complaint: lower back pain Mode of Arrival: Ambulatory Source of Information: Patient Limitations: No Limitations Time Seen by Provider: 11/02/22 16:18 Description of Symptoms (Recalled from Triage Doc. by RN): left sided back pain that stays in place for 2-3 days. States has not fallen, lifted anything heavy. HEENT Symptoms (Recalled from RN notes): No Resp Symptoms (Recalled from RN notes): No Skin Symptoms (Recalled from RN notes): No MS Symptoms (Recalled from RN notes): No Functional Status (Recalled from RN notes): n/a History of Present Illness Provider Complaint: 67 yr old female presents for left flank pain, freq, urgency, hesitancy for 2-3 days Related Data Home Medications Medication Instructions Recorded Confirmed alendronate 70 mg tablet (Fosamax) 70 mg PO WEEKLY vitamin 11/02/22 11/02/22 atorvastatin 10 mg tablet (Lipitor) 10 mg PO DAILY Cholesterol 11/02/22 11/02/22 cholecalciferol (vitamin D3) 1,250 1,250 mcg PO WEEKLY . 11/02/22 11/02/22 mcg (50,000 unit) capsule cholecalciferol (vitamin D3) 25 25 mcg PO DAILY vitamin 11/02/22 11/02/22 mcg (1,000 unit) capsule cyanocobalamin (vitamin B-12) 5,000 mcg PO DAILY . 11/02/22 11/02/22 5,000 mcg disintegrating tablet cyclobenzaprine 5 mg tablet See Rx Instructions .Route 11/02/22 11/02/22 .COMPLEX . duloxetine 30 mg capsule,delayed 30 mg PO DAILY mood 11/02/22 11/02/22 release (Cymbalta) meloxicam 7.5 mg tablet See Rx Instructions .Route 11/02/22 11/02/22 .COMPLEX . quetiapine 25 mg tablet (Seroquel) 25 mg PO HS mood 11/02/22 11/02/22 Pr
[2022-11-02 16:46] VITALS: BP 136/85; PULSE 79; RESP 19; TEMP 36.6; O2SAT 99
== END 2022-11-02 16:47 | disposition home or self-care (01) ==
PROVIDERS: Emergency Provider Nurse Practitioner Family; PCP Physician Assistant
DX: N39.0 Urinary tract infection, site not specified (principal); M54.59 Other low back pain; J44.9 Chronic obstructive pulmonary disease, unspecified; F41.9 Anxiety disorder, unspecified; F32.A Depression, unspecified
CPT/HCPCS: 81003; 87086; 99212; 99214; G0463

== ENCOUNTER → 2022-11-25 11:24 | Outpatient (CLI) | payer MEDICARE, SELFPAY ==
[2022-11-26 23:08] LABS: Calprotectin, Fecal 20 ug/g (0-120)
[2022-11-28 09:53] LABS: Pancreatic Elastase, Fecal >500 (>200)
== END ==
PROVIDERS: PCP Physician Assistant; Visit Provider Nurse Practitioner
DX: K58.9 Irritable bowel syndrome, unspecified (principal); R19.7 Diarrhea, unspecified
CPT/HCPCS: 82656; 83993; 87205

== ENCOUNTER 2022-12-14 11:59 | Emergency (ER) | payer MEDICARE, SELFPAY ==
[2022-12-14 12:15] VITALS: BP 118/61; PULSE 91; RESP 18; TEMP 36.6; O2SAT 99
--- NOTE | 2022-12-14 12:38 | EXP.UTC ---
Discharge Plan Disposition Patient Disposition: Home, Self-Care Condition: Good Prescriptions Prescriptions: New clindamycin HCl 300 mg capsule 300 mg PO TID 7 Days Qty: 21 0RF No Action vitamin B complex [B Complex-Vitamin B12] Tablet 1 tab PO DAILY amitriptyline 10 mg tablet 10 mg PO HS Qty: 30 2RF Rx Instructions: take daily at bedtime atorvastatin [Lipitor] 10 mg tablet 10 mg PO DAILY Qty: 90 0RF cholecalciferol (vitamin D3) 1,250 mcg (50,000 unit) capsule 1,250 mcg PO WEEKLY Qty: 12 2RF cholecalciferol (vitamin D3) 25 mcg (1,000 unit) capsule 25 mcg PO DAILY Qty: 90 0RF cyclobenzaprine 5 mg tablet See Rx Instructions .ROUTE .COMPLEX 30 Days Qty: 60 0RF Rx Instructions: TAKE 1 TABLET BY MOUTH TWICE DAILY NEEDED FOR MUSCLE SPASM duloxetine [Cymbalta] 30 mg capsule,delayed release(DR/EC) 30 mg PO DAILY Qty: 90 0RF meloxicam 7.5 mg tablet See Rx Instructions .ROUTE .COMPLEX Qty: 30 2RF Rx Instructions: Take 1 tablet by mouth once daily Referrals Follow up/Referrals: Virginia Barbosa PA [Primary Care Provider] - See instructions Activity Restrictions/Add. Instructions Additional Instructions/Restrictions: antibiotics as ordered follow up with dentist kenneth return if symptoms worsen or no improvement Clinical Impressions Clinical Impression: Abscessed tooth Instructions Patient Instructions: Tooth Abscess Discharge [facility] [facility] [place] General Stated complaint: oral pain, diarrhea, h/a Mode of Arrival: Ambulatory Source of Information: Patient Limitations: No Limitations Time Seen by Provider: 12/14/22 12:38 HEENT Symptoms (Recalled from RN notes): Yes History of Present Illness Provider Complaint: 67 yr old female presents for rt lower dental pain, ear pain and throat pain, pt stats she has bad teeth and just had her insurance change so she can find a dentist to get her teeth fixed or pulled Related Data Home Medications Medication Instructions Recorded Confirmed vitamin B complex (B 1 tab PO DAILY 11/21/22 11/21/22 Complex-Vitamin B12 tablet) Previous Rx's Medication Instructions Recorded atorvastatin 10 mg tablet (Lipitor) 10 mg PO DAILY Cholesterol #90 tabs 06/28/23 cholecalciferol (vitamin D3) 1,250 1,250 mcg PO WEEKLY . #12 caps 11/06/22 mcg (50,000 unit) capsule cholecalciferol (vitamin D3) 25 25 mcg PO DAILY vitamin #90 caps 11/06/22 mcg (1,000 unit) capsule cyclobenzaprine 5 mg tablet See Rx Instructions .Route 11/06/22 .COMPLEX . 30 days #60 tabs duloxetine 30 mg capsule,delayed 30 mg PO DAILY mood #90 caps 11/06/22 release (Cymbalta) meloxicam 7.5 mg tablet See Rx Instructions .Route 11/06/22 .COMPLEX . #30 tabs amitriptyline 10 mg tablet 10 mg PO HS IBS #30 tabs 11/21/22 clindamycin HCl 300 mg capsule 300 mg PO TID 7 days #21 caps 12/14/22 Allergies Allergy/AdvReac Type Severity Reaction Status Date / Time amoxicillin [From Augmentin] Allergy Verified 11/21/22 11:13 cimetidine [From Tagamet] Allergy Verified 11/21/22 11:13 clavulanic acid Allergy Verified 11/21/22 11:13 [From Augmentin] codeine Allergy Verified 11/21/22 11:13 Penicillins Allergy Verified 11/21/22 11:13 [facility] PFS Disclaimer: The information contained in this section may have been updated after the patient was seen, as this information can be updated by other users. Medical History , CHARTING CLERK) Acute diarrhea Anxiety COPD (chronic obstructive pulmonary disease) Depression Hypotension Osteoporosis RUQ abdominal pain Social History , CHARTING CLERK) Smoking Status: Never smoker alcohol intake: never substance use type: denies use current occupational status: other Travel in the last 8 weeks: None housing: house current occupational exposures/hazards: No caffeine
[2022-12-14 12:50] VITALS: BP 118/61; PULSE 91; RESP 18; TEMP 36.6; O2SAT 99
== END 2022-12-14 12:53 | disposition home or self-care (01) ==
PROVIDERS: Emergency Provider Nurse Practitioner Family; PCP Physician Assistant
DX: K04.7 Periapical abscess without sinus (principal); H92.01 Otalgia, right ear; J44.9 Chronic obstructive pulmonary disease, unspecified; M81.8 Other osteoporosis without current pathological fracture; F41.9 Anxiety disorder, unspecified; F32.A Depression, unspecified
CPT/HCPCS: 99212; 99214; G0463

== ENCOUNTER 2023-01-22 23:17 | Emergency (ER) | payer MEDICARE, SELFPAY ==
[2023-01-22 23:18] VITALS: BP 157/97; PULSE 90; RESP 16; TEMP 36.9; O2SAT 96; BMI 21.2
--- NOTE | 2023-01-22 23:31 | HMH.EDGENADL ---
Discharge Plan Disposition Patient Disposition: Home, Self-Care Condition: Good Prescriptions Prescriptions: New clindamycin HCl 150 mg capsule 450 mg PO TID 5 Days Qty: 45 0RF No Action vitamin B complex [B Complex-Vitamin B12] Tablet 1 tab PO DAILY amitriptyline 10 mg tablet 10 mg PO HS Qty: 30 2RF Rx Instructions: take daily at bedtime prednisone 20 mg tablet 20 mg PO BID 5 Days Qty: 10 0RF azithromycin [Zithromax Z-Lai] 250 mg tablet See Rx Instructions PO .COMPLEX Qty: 6 0RF Rx Instructions: For 250 mg dose pack: take 500 mg today (day 1), then 250 mg for 4 days (days 2-5) PO Mucinex 1,200 mg tablet extended release 12hr 1,200 mg PO BID Qty: 14 0RF atorvastatin [Lipitor] 10 mg tablet 10 mg PO DAILY Qty: 90 0RF cholecalciferol (vitamin D3) 1,250 mcg (50,000 unit) capsule 1,250 mcg PO WEEKLY Qty: 12 2RF cholecalciferol (vitamin D3) 25 mcg (1,000 unit) capsule 25 mcg PO DAILY Qty: 90 0RF cyclobenzaprine 5 mg tablet See Rx Instructions .ROUTE .COMPLEX 30 Days Qty: 60 0RF Rx Instructions: TAKE 1 TABLET BY MOUTH TWICE DAILY NEEDED FOR MUSCLE SPASM duloxetine [Cymbalta] 30 mg capsule,delayed release(DR/EC) 30 mg PO DAILY Qty: 90 0RF meloxicam 7.5 mg tablet See Rx Instructions .ROUTE .COMPLEX Qty: 30 2RF Rx Instructions: Take 1 tablet by mouth once daily Referrals Follow up/Referrals: Virginia Barbosa PA [Primary Care Provider] - See instructions Activity Restrictions/Add. Instructions Additional Instructions/Restrictions: Please take antibiotics as prescribed. Please continue to try to expedite your dental care. Clinical Impressions Clinical Impression: Acute pulpitis Discharge ED Provider: [facility] HPI General Chief complaint: Dental/Oral Stated complaint: toothache Time Seen by Provider: 01/22/23 23:23 History of Present Illness HPI narrative: 67-year-old female presents with right mandibular tooth pain. She reports that she has really bad teeth . She has been try to get this taken care of for a long time, she actually saw a dentist today but was not prescribed any antibiotics or pain medications. Her tooth pain actually began after her dentist appointment. She is scheduled to follow-up with oral surgery for dental extractions but that is not for over a month. No fevers. Related Data Home Medications Medication Instructions Recorded Confirmed vitamin B complex (B 1 tab PO DAILY 11/21/22 11/21/22 Complex-Vitamin B12 tablet) Previous Rx's Medication Instructions Recorded atorvastatin 10 mg tablet (Lipitor) 10 mg PO DAILY Cholesterol #90 tabs 11/06/22 cholecalciferol (vitamin D3) 1,250 1,250 mcg PO WEEKLY . #12 caps 11/06/22 mcg (50,000 unit) capsule cholecalciferol (vitamin D3) 25 25 mcg PO DAILY vitamin #90 caps 11/06/22 mcg (1,000 unit) capsule cyclobenzaprine 5 mg tablet See Rx Instructions .Route 11/06/22 .COMPLEX . 30 days #60 tabs duloxetine 30 mg capsule,delayed 30 mg PO DAILY mood #90 caps 11/06/22 release (Cymbalta) meloxicam 7.5 mg tablet See Rx Instructions .Route 11/06/22 .COMPLEX . #30 tabs amitriptyline 10 mg tablet 10 mg PO HS IBS #30 tabs 11/21/22 azithromycin 250 mg tablet See Rx Instructions PO .COMPLEX #6 01/03/23 (Zithromax Z-Lai) tabs guaifenesin 1,200 mg tablet, 1,200 mg PO BID #14 tabs 01/03/23 extended release 12 hr (Mucinex) prednisone 20 mg tablet 20 mg PO BID 5 days #10 tabs 01/03/23 clindamycin HCl 150 mg capsule 450 mg PO TID 5 days #45 caps 01/22/23 Allergies Allergy/AdvReac Type Severity Reaction Status Date / Time amoxicillin [From Augmentin] Allergy Verified 01/03/23 14:20 cimetidine [From Tagamet] Allergy Verified 01/03/23 14:20 clavulanic acid Allergy Verified 01/03/23 14:20 [From Augmentin] codeine Allergy Verified 01/03/23 14:20 Penicillins Allergy Verified 01/03/23 14:20 PFSH PFSH Discl
[2023-01-22 23:44] VITALS: BP 143/86; PULSE 85; RESP 20; TEMP 36.8; O2SAT 96
== END 2023-01-22 23:45 | disposition home or self-care (01) ==
PROVIDERS: Emergency Provider Emergency Medicine; PCP Physician Assistant
DX: G50.1 Atypical facial pain (principal); J44.9 Chronic obstructive pulmonary disease, unspecified; F41.9 Anxiety disorder, unspecified; F32.A Depression, unspecified; M81.8 Other osteoporosis without current pathological fracture
CPT/HCPCS: 99283

== ENCOUNTER 2023-04-14 13:34 | Emergency (ER) | payer MEDICARE, SELFPAY ==
[2023-04-14 14:10] VITALS: BP 112/74; PULSE 80; RESP 18; TEMP 37; O2SAT 98; BMI 22.8
--- NOTE | 2023-04-14 14:50 | EXP.UTC ---
Discharge Plan Disposition Patient Disposition: Home, Self-Care Condition: Good Prescriptions Prescriptions: No Action amitriptyline 10 mg tablet 10 mg PO HS Qty: 30 2RF Rx Instructions: take daily at bedtime atorvastatin [Lipitor] 10 mg tablet 10 mg PO DAILY Qty: 90 0RF cholecalciferol (vitamin D3) 1,250 mcg (50,000 unit) capsule 1,250 mcg PO WEEKLY Qty: 12 2RF cholecalciferol (vitamin D3) 25 mcg (1,000 unit) capsule 25 mcg PO DAILY Qty: 90 0RF duloxetine [Cymbalta] 30 mg capsule,delayed release(DR/EC) 30 mg PO DAILY Qty: 90 0RF albuterol sulfate 90 mcg/actuation HFA aerosol inhaler 1 inh inhalation QID Qty: 6.7 2RF azithromycin [Zithromax Z-Lai] 250 mg tablet See Rx Instructions PO .COMPLEX Qty: 6 0RF Rx Instructions: For 250 mg dose pack: take 500 mg today (day 1), then 250 mg for 4 days (days 2-5) PO prednisone 10 mg tablet 10 mg PO BID 5 Days Qty: 10 0RF benzonatate 100 mg capsule 100 mg PO BID PRN (Reason: cough) Qty: 10 0RF raloxifene 60 mg tablet 60 mg PO DAILY Qty: 30 2RF Calcium 600 with Vitamin D3 600 mg-10 mcg (400 unit) tablet,chewable 1 tab PO DAILY Qty: 90 1RF meloxicam 7.5 mg tablet See Rx Instructions .ROUTE .COMPLEX Qty: 30 2RF Rx Instructions: Take 1 tablet by mouth once daily cyclobenzaprine 5 mg tablet See Rx Instructions .ROUTE .COMPLEX 30 Days Qty: 60 0RF Rx Instructions: TAKE 1 TABLET BY MOUTH TWICE DAILY NEEDED FOR MUSCLE SPASM risedronate [Actonel] 150 mg tablet 150 mg PO QMONTH Qty: 1 5RF Rx Instructions: administer at least 30 minutes before the first food or drink of the day other than water. Referrals Follow up/Referrals: Virginia Barbosa PA [Primary Care Provider] - See instructions Activity Restrictions/Add. Instructions Additional Instructions/Restrictions: *Monitor Temp, Over the counter Motrin or Tylenol as directed/as needed Tylenol every 4 hours and Motrin every 6 hours (as long as your family doctor has told you that you can take it) for fever or pain. and straight to ER if unable to lower temp less than 101.0 after medication given *Warm salt water gargles may help to soothe the throat *Throat Lozenges? *Warm fluids like tea with honey may help to soothe the throat? *Sleep elevated *Humidifier/Vaporizer Follow up IMMEDIATELY for new or worsening symptoms or no Noticeable improvement over the next 48-72 hours. 911 for difficulty breathing or swallowing You were tested for today for COVID19 your test result should be back in the next 24 hours You may check for your results on the [facility] [employer] [facility] Portal if your COVID test is positive you must Quarantine for 5 days Clinical Impressions Clinical Impression: Exposure to COVID-19 virus Instructions Patient Instructions: DI for COVID-19 (Suspected or Confirmed ), DI for Viral Syndrome [place] ED [place]ecia Ureña [facility] [place] General Stated complaint: exposed to Covid Mode of Arrival: Ambulatory Source of Information: Patient Limitations: No Limitations Time Seen by Provider: 04/14/23 14:50 Description of Symptoms (Recalled from Triage Doc. by RN): body aches, nasuea, and PA. Pt was exposed to covid HEENT Symptoms (Recalled from RN notes): Yes Resp Symptoms (Recalled from RN notes): No Skin Symptoms (Recalled from RN notes): No MS Symptoms (Recalled from RN notes): No Functional Status (Recalled from RN notes): n/a History of Present Illness Provider Complaint: Patient states that she was recently around her son that tested postive for COVID now she is having symptoms States that she has been having body ache, chills and headache so she came in to get tested Related Data Previous Rx's Medication Instructions Recorded atorvastatin 10 mg tablet (Lipitor) 10 mg PO DAILY Cholesterol #90 tabs 02/07/23 cholecalciferol (vitamin D3) 1,250 1,250 mcg PO WEEKLY . #1
[2023-04-14 15:08] VITALS: BP 112/74; PULSE 80; RESP 18; TEMP 37; O2SAT 98
== END 2023-04-14 15:08 | disposition home or self-care (01) ==
PROVIDERS: Emergency Provider Nurse Practitioner; PCP Physician Assistant
DX: R51.9 Headache, unspecified (principal); R11.0 Nausea; M79.18 Myalgia, other site; Z20.822 Contact with and (suspected) exposure to COVID-19
CPT/HCPCS: 87635; 99212; 99213; G0463

== ENCOUNTER → 2023-04-24 23:14 | Outpatient (CLI) | payer MEDICARE, SELFPAY ==
[2023-04-24 18:06] LABS: Adenovirus,PCR Not Detected (NotDetected); Coronavirus 19, PCR Not Detected (NotDetected); Coronavirus 229E Not Detected (NotDetected); Coronavirus NL63 Not Detected (NotDetected); Coronavirus OC43 Not Detected (NotDetected); Coronovirus HKU1,PCR Not Detected (NotDetected); Human Metapneumovirus Not Detected (NotDetected); Influenza A, PCR Not Detected (NotDetected); Influenza AH1, 2009 Not Detected (NotDetected); Influenza AH1, PCR Not Detected (NotDetected); Influenza AH3,PCR Not Detected (NotDetected); Influenza B, PCR Not Detected (NotDetected); Parainfluenza 1, PCR Not Detected (NotDetected); Parainfluenza 2, PCR Not Detected (NotDetected); Parainfluenza 3, PCR Not Detected (NotDetected); Parainfluenza 4, PCR Not Detected (NotDetected); Respiratory Syncytial Virus Not Detected (NotDetected); Rhinovirus/Enterovirus Not Detected (NotDetected)
== END ==
LOC: LAB.DROPOF 23:15
PROVIDERS: PCP Student in an Organized Health Care Education/Training Program; Visit Provider Student in an Organized Health Care Education/Training Program
DX: R09.89 Other specified symptoms and signs involving the circulatory and respiratory systems; R05.8 Other specified cough; Z20.828 Contact with and (suspected) exposure to other viral communicable diseases
CPT/HCPCS: 87632; 87635

== ENCOUNTER 2023-07-30 09:56 | Outpatient (CLI) | payer MEDICARE, SELFPAY ==
--- NOTE | 2023-07-30 09:57 | CT_ITS ---
FINAL REPORT TECHNIQUE: Axial images through the abdomen and pelvis were performed without contrast. This study was performed with techniques to keep radiation doses as low as reasonably achievable, (ALARA). Individualized dose reduction techniques using automated exposure control or adjustment of mA and/or kV according to the patient's size were employed. CLINICAL HISTORY: RUQ Pain COMPARISON: 12/22/2021 FINDINGS: ABDOMEN: There is fatty infiltration of the liver. The patient is status post cholecystectomy. The spleen is normal. No adrenal mass is identified. The aorta is normal in caliber. There is no significant free fluid or adenopathy. Small left renal parenchymal calcification is identified. There is a 20 mm mass in the anterior pole of the right kidney, likely a cyst. There is mild vascular calcification. There is no hydronephrosis. PELVIS: The appendix is not identified. The urinary bladder is unremarkable. There is no significant free fluid or adenopathy. There are moderate to severe degenerative changes of the hips. IMPRESSION: Fatty liver. Right renal cyst. Reviewed, Interpreted and Dictated by Celio Tovar III, MD Transcribed by Ayde Wall Authenticated and [facility]
--- NOTE | 2023-07-30 10:03 | CT_ITS ---
FINAL REPORT TECHNIQUE: Axial CT images were performed from the lung apices through the upper abdomen. Coronal reformats were submitted. This study was performed with techniques to keep radiation doses as low as reasonably achievable (ALARA). Individualized dose reduction techniques using automated exposure control or adjustment of mA and/or kV according to the patient's size were employed. CLINICAL HISTORY: nodules COMPARISON: 11/08/2018 FINDINGS: There is no axillary adenopathy. There is no hilar or mediastinal mass or adenopathy. Heart size is normal. There is no pericardial or pleural effusion. Mild pulmonary scarring is identified. There are multiple calcified granulomas. There are multiple small noncalcified nodules. There is a 4 mm nodule near the right major fissure well seen on image 28, stable. There is a lateral left lower lobe nodule measuring 3 mm well seen on image 53. Other smaller nodules are stable. IMPRESSION: Stable pulmonary nodules. Reviewed, Interpreted and Dictated by Celio Tovar III, MD Transcribed by Ayde Wall Authenticated and [facility]
== END 2023-07-30 23:59 ==
LOC: RAD 09:57
PROVIDERS: PCP Physician Assistant; Visit Provider Physician Assistant
DX: R10.11 Right upper quadrant pain (principal); R91.8 Other nonspecific abnormal finding of lung field
CPT/HCPCS: 71250; 74176

== ENCOUNTER 2023-07-31 15:34 | Outpatient (CLI) | payer MEDICARE, SELFPAY | END 2023-07-31 23:59 | LOC: LAB 15:35 | PROVIDERS: PCP Physician Assistant; Visit Provider Nurse Practitioner | DX: K76.0 Fatty (change of) liver, not elsewhere classified (principal); K59.1 Functional diarrhea ==

== ENCOUNTER 2023-08-05 10:38 | Outpatient (CLI) | payer MEDICARE, SELFPAY ==
[2023-08-05 11:48] LABS: Chloride 105 mmol/L (98-107); Potassium 4.3 mmoL/L (3.5-5.1); Sodium 141 mmol/L (136-145)
[2023-08-05 11:51] LABS: Alanine Aminotransferase 30 U/L (12-78); Albumin Level 4.3 g/dl (3.5-5.0); Albumin/Globulin Ratio 1.5 (1.1-1.8); Alkaline Phosphatase 115 U/L (38-126); Anion Gap 11.3 mEq/L (5-15); Aspartate Amino Transferase 35 U/L (14-36); Bilirubin,Total 0.6 mg/dl (0.2-1.3); Blood Urea Nitrogen 22 mg/dl (7-17); Calcium 9.5 mg/dl (8.4-10.2); Carbon Dioxide 29 mmol/L (22.0-30.0); Estimated Glomerular Filt Rate 62 ml/min (>60); GFR (African American) 76 ML/MIN (>60); Globulin 2.8 g/dL (1.3-3.2); Glucose 96 mg/dl (74-100); Total Protein,Serum 7.1 g/dl (6.3-8.2)
[2023-08-05 11:57] LABS: C-Reactive Protein 1.8 mg/L (0-4)
[2023-08-05 12:38] LABS: INR 1.01 (0.9-1.1); Prothrombin Time 10.9 seconds (10.1-12.5)
[2023-08-07 12:43] LABS: Fibrosis Score 0.12; Fibrosis Stage F0 NO FIBROSIS; Steatosis Grade S2-S3; Steatosis Score 0.62
[2023-08-07 12:44] LABS: Alpha 2-Macroglobulins, Qn 146; Apolipoprotein A-1 145; Haptoglobin 150; NASH Grade N1 MILD NASH; NASH Score 0.47
[2023-08-07 12:45] LABS: ALT (SGPT) P5P 27; AST (SGOT) P5P 23; Bilirubin, Total 0.4; Cholesterol, Total 200; GGT 26
[2023-08-07 12:46] LABS: Glucose 90; Triglycerides 143
[2023-08-08 10:17] LABS: Bile Acids 6.3
== END 2023-08-05 23:59 ==
LOC: LAB 10:39
PROVIDERS: PCP Physician Assistant; Visit Provider Nurse Practitioner
DX: K76.0 Fatty (change of) liver, not elsewhere classified (principal); K59.1 Functional diarrhea; K91.5 Postcholecystectomy syndrome
CPT/HCPCS: 36415; 80053; 82239; 85610; 86140

== ENCOUNTER 2023-09-10 13:35 | Outpatient (CLI) | payer MEDICARE, SELFPAY ==
[2023-09-18 00:08] LABS: Calprotectin, Fecal <5 ug/g (0-120)
[2023-09-19 10:58] LABS: Pancreatic Elastase, Fecal >500 (>200)
== END 2023-09-10 23:59 | disposition home or self-care (01) ==
LOC: LAB.DROPOF 13:36
PROVIDERS: PCP Physician Assistant; Visit Provider Nurse Practitioner
DX: K76.0 Fatty (change of) liver, not elsewhere classified (principal); K59.1 Functional diarrhea
CPT/HCPCS: 82656; 83993

== ENCOUNTER 2023-09-19 18:00 | Outpatient (CLI) | payer MEDICARE, SELFPAY | END 2023-09-19 23:59 | disposition home or self-care (01) | LOC: LAB.DROPOF 09-20 08:45 | PROVIDERS: PCP Student in an Organized Health Care Education/Training Program; Visit Provider Student in an Organized Health Care Education/Training Program | DX: R05.9 Cough, unspecified (principal) | CPT/HCPCS: 87070 ==

== ENCOUNTER 2023-10-28 17:33 | Emergency (ER) | payer MEDICARE, SELFPAY ==
[2023-10-28 18:05] VITALS: BP 123/54; PULSE 92; RESP 19; TEMP 36.8; O2SAT 99; BMI 22.4
[2023-10-28 18:52] VITALS: BP 123/54; PULSE 92; RESP 19; TEMP 36.8; O2SAT 99
--- NOTE | 2023-10-28 18:55 | ED_ITS ---
Discharge Plan Disposition Patient Disposition: Home, Self-Care Condition: Good Prescriptions Prescriptions: New azithromycin 250 mg tablet See Rx Instructions .ROUTE .COMPLEX Qty: 6 0RF Rx Instructions: For 250 mg dose pack: take 500 mg today (day 1), then 250 mg for 4 days (days 2-5) benzonatate 100 mg capsule 100 mg PO TID PRN (Reason: cough) Qty: 30 0RF No Action meloxicam 7.5 mg tablet 7.5 mg PO DAILY Patient Comments: TAKE 1 TABLET BY MOUTH ONCE DAILY amitriptyline 10 mg tablet 10 mg PO DAILY raloxifene 60 mg tablet 60 mg PO DAILY Patient Comments: TAKE 1 TABLET BY MOUTH ONCE DAILY duloxetine 30 mg capsule,delayed release(DR/EC) 30 mg PO DAILY Patient Comments: TAKE 1 CAPSULE BY MOUTH ONCE DAILY FOR MOOD cholecalciferol (vitamin D3) 1,250 mcg (50,000 unit) capsule 1,250 mcg PO WEEKLY Patient Comments: TAKE 1 CAPSULE BY MOUTH ONCE A WEEK Referrals Follow up/Referrals: Virginia Barbosa PA [Primary Care Provider] - See instructions Activity Restrictions/Add. Instructions Additional Instructions/Restrictions: Take medication as prescribed. If symptoms persist or worsen, follow up with PCP. Clinical Impressions Clinical Impression: Acute upper respiratory infection Instructions Patient Instructions: Acute Bronchitis Discharge ED Provider: Aminata Barnhart [facility] General Stated complaint: PA, body aches, weak Mode of Arrival: Ambulatory Source of Information: Patient Limitations: No Limitations Time Seen by Provider: 10/28/23 18:17 Description of Symptoms (Recalled from Triage Doc. by RN): PATIENT C/O HEADACHE, BODY ACHES, FATIGUE, CHILLS, SINUS CONGESTION, AND FEELING HOT THAT STARTED 1 WEEK AGO HEENT Symptoms (Recalled from RN notes): Yes Resp Symptoms (Recalled from RN notes): No Skin Symptoms (Recalled from RN notes): No MS Symptoms (Recalled from RN notes): No Functional Status (Recalled from RN notes): WNL History of Present Illness Provider Complaint: PATIENT C/O HEADACHE, BODY ACHES, FATIGUE, CHILLS, SINUS CONGESTION, AND FEELING HOT THAT STARTED 1 WEEK . She denies taking anything for her symptoms. She reports that they have gotten worse and she is started to get hoarse. Related Data Home Medications Medication Instructions Recorded Confirmed amitriptyline 10 mg tablet 10 mg PO DAILY 10/28/23 10/28/23 cholecalciferol (vitamin D3) 1,250 1,250 mcg PO WEEKLY 10/28/23 10/28/23 mcg (50,000 unit) capsule duloxetine 30 mg capsule,delayed 30 mg PO DAILY 10/28/23 10/28/23 release meloxicam 7.5 mg tablet 7.5 mg PO DAILY 10/28/23 10/28/23 raloxifene 60 mg tablet 60 mg PO DAILY 10/28/23 10/28/23 Previous Rx's Medication Instructions Recorded azithromycin 250 mg tablet See Rx Instructions PO .COMPLEX #6 10/28/23 tabs benzonatate 100 mg capsule 100 mg PO TID PRN cough #30 caps 10/28/23 Allergies Allergy/AdvReac Type Severity Reaction Status Date / Time amoxicillin [From Augmentin] Allergy Verified 10/17/23 15:04 cimetidine [From Tagamet] Allergy Verified 10/17/23 15:04 clavulanic acid Allergy Verified 10/17/23 15:04 [From Augmentin] codeine Allergy Verified 10/17/23 15:04 Penicillins Allergy Verified 10/17/23 15:04 Worker's Comp Is this a Worker's Comp case?: No [facility] Disclaimer: The information contained in this section may have been updated after the ben gallagher was seen, as this information can be updated by other users. Medical History Acute diarrhea Osteoporosis COPD (chronic obstructive pulmonary disease) Depression RUQ abdominal pain Hypotension Anxiety Surgical History Hx of cholecystectomy No significant past surgical history Family History Other No significant family history Social History Smoking Status: Never smoker alcohol intake: never substance use type: denies use current occupational status: other Travel in the last 8 weeks: None housing: house current occupational exposures/hazards: No caffeine: No ROS Obtained: Yes All systems reviewed & no additional complaints except as documented Constitutional Constitutional: Reports system reviewed and no additional complaints, except as documented, Reports body ache, Reports chills and Reports malaise Eyes Eyes: Reports system reviewed and no additional complaints, except as documented ENT Ears, Nose, Mouth, and Throat: Reports system reviewed and no additional complaints, except as documented, Reports nasal discharge and Reports post nasal drip Cardiovascular Cardiovascular: Reports system reviewed and no additional complaints, except as documented Respiratory Respiratory: Reports system reviewed and no additional complaints, except as documented and Reports cough Gastrointestinal Gastrointestingal: Reports system reviewed and no additional complaints, except as documented Genitourinary Female Genitourinary: Reports system reviewed and no additional complaints, except as documented Musculoskeletal Musculoskeletal: Reports system reviewed and no additional complaints, except as documented Integumentary/Breasts Skin/Breast: Reports system reviewed and no additional complaints, except as documented Neurologic Neurologic: Reports system reviewed and no additional complaints, except as documented Endocrine Endocrine: Reports system reviewed and no additional complaints, except as documented Hematologic/Lymphatic Henatologic/Lymphatic: Reports system reviewed and no additional complaints, except as documented Allergic/Immunologic Allergic/Immunologic: Reports system reviewed and no additional complaints, except as documented Physical Exam General General appearance: alert Comment: ill appearing Head Head exam: atraumatic Eye Eye exam: Present normal appearance ENT ENT exam: Present mucous membranes moist Expanded ENT Exam External ear exam: Present normal external inspection Nose exam: Absent sinus tenderness Nasal speculum exam: Bilateral: other (clear drainage) Mouth exam: Present normal external inspection Teeth exam: Present dental caries Throat exam: Present normal inspection Neck Neck exam: Present normal inspection; Absent lymphadenopathy Chest Chest inspection: Present normal inspection and symmetric chest wall rise Respiratory Respiratory exam: Present other (course sounds throughout.) Cardiovascular Cardiovascular exam: Present regular rate and normal rhythm Abdominal Exam Abdominal exam: Present soft and normal bowel sounds Extremities Exam Extremities exam: Present normal inspection Back Exam Back exam: Present normal inspection Neurological Exam Neurological exam: Present alert and oriented X3 Psychiatric Psychiatric exam: Present normal affect and normal mood Skin Skin exam: Present warm, dry and intact Lymphatic Lymphatic Findings: no adenopathy Medical Decision Making Marc Inquiry Pt receiving controlled substance: No Marc was queried for this patient: No Vital Signs: 10/28/23 18:05 10/28/23 18:52 Temperature 98.2 F 98.2 F Temperature Source Oral Pulse Rate 92 H Pulse Rate [Left Brachial] 92 H Respiratory Rate 19 19 Blood Pressure 123/54 L Blood Pressure [Left Arm] 123/54 L Blood Pressure Mean [Left Arm] 77 Blood Pressure Source [Left Arm] Automatic Cuff Blood Pressure Position [Left Arm] Sitting 02 Sat by Pulse Oximetry 99 Oxygen Delivery Method Room Air
== END 2023-10-28 19:06 | disposition home or self-care (01) ==
PROVIDERS: Emergency Provider Nurse Practitioner Family; PCP Physician Assistant
DX: R51.9 Headache, unspecified (principal); J06.9 Acute upper respiratory infection, unspecified; R53.83 Other fatigue; M79.18 Myalgia, other site
CPT/HCPCS: 99212; 99214; G0463

== ENCOUNTER 2023-11-15 02:10 | Emergency (ER) | payer MEDICARE, SELFPAY ==
[2023-11-15 02:13] VITALS: BP 148/85; PULSE 97; RESP 15; TEMP 36.7; O2SAT 98; BMI 22.3
[2023-11-15 02:19] VITALS: BP 148/85; PULSE 103; RESP 18; O2SAT 97
--- NOTE | 2023-11-15 02:27 | CT_ITS ---
PROCEDURE INFORMATION: Exam: CT Abdomen And Pelvis With Contrast Exam date and time: 11/15/2023 3:08 AM Age: 68 years old Clinical indication: Bloating; Additional info: Bloating, intermittent severe generalized pain TECHNIQUE: Imaging protocol: Computed tomography of the abdomen and pelvis with contrast. Radiation optimization: All CT scans at this facility use at least one of these dose optimization techniques: automated exposure control; mA and/or kV adjustment per patient size (includes targeted exams where dose is matched to clinical indication); or iterative reconstruction. Contrast material: ISOVUE; Contrast volume: 75 ml; Contrast route: IV; COMPARISON: CT ABDOMEN PELVIS WO CON 07/30/2023 10:04 AM FINDINGS: Liver: The liver is low in density. Gallbladder and biliary ducts: Cholecystectomy. No acute process Pancreas: Normal. No ductal dilation. Spleen: Normal. No splenomegaly. Adrenal glands: Normal. No mass. Kidneys and ureters: Normal. No hydronephrosis. Stomach and bowel: Unremarkable. No obstruction. No mucosal thickening. Appendix: No evidence of appendicitis. Intraperitoneal space: Unremarkable. No free air. No significant fluid collection. Vasculature: Unremarkable. No abdominal aortic aneurysm. Lymph nodes: Unremarkable. No enlarged lymph nodes. Urinary bladder: Unremarkable as visualized. Reproductive: Unremarkable as visualized. Bones/joints: Unremarkable. No acute fracture. Soft tissues: Unremarkable. IMPRESSION: 1. No acute process. 2. Cholecystectomy. 3. Diffuse hepatic steatosis.
--- NOTE | 2023-11-15 02:28 | ED_ITS ---
Discharge Plan Disposition Patient Disposition: Home, Self-Care Prescriptions Prescriptions: No Action meloxicam 7.5 mg tablet 7.5 mg PO DAILY Patient Comments: TAKE 1 TABLET BY MOUTH ONCE DAILY amitriptyline 10 mg tablet 10 mg PO DAILY raloxifene 60 mg tablet 60 mg PO DAILY Patient Comments: TAKE 1 TABLET BY MOUTH ONCE DAILY duloxetine 30 mg capsule,delayed release(DR/EC) 30 mg PO DAILY Patient Comments: TAKE 1 CAPSULE BY MOUTH ONCE DAILY FOR MOOD cholecalciferol (vitamin D3) 1,250 mcg (50,000 unit) capsule 1,250 mcg PO WEEKLY Patient Comments: TAKE 1 CAPSULE BY MOUTH ONCE A WEEK azithromycin 250 mg tablet See Rx Instructions .ROUTE .COMPLEX Qty: 6 0RF Rx Instructions: For 250 mg dose pack: take 500 mg today (day 1), then 250 mg for 4 days (days 2-5) benzonatate 100 mg capsule 100 mg PO TID PRN (Reason: cough) Qty: 30 0RF Referrals Follow up/Referrals: Virginia Barbosa PA [Primary Care Provider] - See instructions Activity Restrictions/Add. Instructions Additional Instructions/Restrictions: Please follow-up with your primary care provider. Please return to the emergency department if you develop any new or worsening symptoms or become concerned for your health. Recommend using MiraLAX to increase your bowel movements Clinical Impressions Clinical Impression: Abdominal pain, Abdominal bloating Instructions Patient Instructions: DI for Acute Abdominal Pain Discharge ED Provider: Orlando Reed General Adult HPI General Chief complaint: Abdominal Pain Stated complaint: bloated, pain L side abd Time Seen by Provider: 11/15/23 02:15 Mode of Arrival: Ambulatory Source of Information: Patient Limitations: No Limitations Description of Symptoms (Recalled from ER Triage Doc. by RN): Patient present to ED with complaints of LLQ pain and abdominal bloating x 1 week with increased pain, and spasms this evening. Denies n/v/d and last bowel movement 11/14. History of Present Illness HPI narrative: 68-year-old female with history of prior cholecystectomy, MIRELES, osteoporosis presents with intermittent abdominal pain for the last week. Reports it has been getting worse and she just could not take it anymore . Reports the pain is intermittent, and severe when it comes. Reports it is primarily in the left lower quadrant but sometimes attacks the upper quadrants as well. Sometimes also on the right. Denies any exacerbating or relieving factors. Reports she been having normal urination, reports normal bowel movements, denies any recent fever. Patient's reports some abdominal bloating which is abnormal for her. Currently she does not require anything for pain. Related Data Home Medications Medication Instructions Recorded Confirmed amitriptyline 10 mg tablet 10 mg PO DAILY 10/28/23 10/28/23 cholecalciferol (vitamin D3) 1,250 1,250 mcg PO WEEKLY 10/28/23 10/28/23 mcg (50,000 unit) capsule duloxetine 30 mg capsule,delayed 30 mg PO DAILY 10/28/23 10/28/23 release meloxicam 7.5 mg tablet 7.5 mg PO DAILY 10/28/23 10/28/23 raloxifene 60 mg tablet 60 mg PO DAILY 10/28/23 10/28/23 Previous Rx's Medication Instructions Recorded azithromycin 250 mg tablet See Rx Instructions PO .COMPLEX #6 10/28/23 tabs benzonatate 100 mg capsule 100 mg PO TID PRN cough #30 caps 10/28/23 Allergies Allergy/AdvReac Type Severity Reaction Status Date / Time amoxicillin [From Augmentin] Allergy Verified 10/17/23 15:04 cimetidine [From Tagamet] Allergy Verified 10/17/23 15:04 clavulanic acid Allergy Verified 10/17/23 15:04 [From Augmentin] codeine Allergy Verified 10/17/23 15:04 Penicillins Allergy Verified 10/17/23 15:04 [facility] Disclaimer: The information contained in this section may have been updated after the patient was seen, as this information can be updated by other users. Medical History Acute diarrhea Osteoporosis COPD (chronic obstructive pulmonary disease) Depression RUQ abdominal pain Hypotension Anxiety Surgical History Hx of cholecystectomy No significant past surgical history Family History Other No significant family history Social History Smoking Status: Never smoker alcohol intake: never substance use type: denies use current occupational status: other Travel in the last 8 weeks: None housing: house current occupational exposures/hazards: No caffeine: No ROS Obtained: Yes All systems reviewed & no additional complaints except as documented Physical Exam General General appearance: alert and in no apparent distress Head Head exam: atraumatic and normocephalic Eye Eye exam: Present normal appearance, PERRL and EOMI ENT ENT exam: Present normal oropharynx and normal external ear exam Neck Neck exam: Present normal inspection and full ROM Chest Chest inspection: Present normal inspection and symmetric chest wall rise; Absent tenderness Respiratory Respiratory exam: Present normal lung sounds bilaterally; Absent respiratory distress Cardiovascular Cardiovascular exam: Present regular rate and normal rhythm Abdominal Exam Abdominal exam: Present soft; Absent distention, tenderness or guarding Extremities Exam Extremities exam: Present normal inspection; Absent edema or joint swelling Back Exam Back exam: Present normal inspection; Absent tenderness Neurological Exam Neurological exam: Present alert and oriented X3; Absent motor sensory deficit Psychiatric Psychiatric exam: Present normal affect and normal mood Skin Skin exam: Present warm, dry and normal color Lymphatic Lymphatic Findings: no adenopathy Medical Decision Making Medical Records Medical records reviewed: Yes I reviewed the patient's medical records. Marc Inquiry Pt receiving controlled substance: No Marc was queried for this patient: No Vital Signs: 11/15/23 02:13 11/15/23 02:19 Temperature 98.1 F Temperature Source Oral Pulse Rate 103 H Pulse Rate [Right] 97 H Respiratory Rate 15 18 Blood Pressure 148/85 H Blood Pressure [Right Arm] 148/85 H Blood Pressure Mean [Right Arm] 106 Blood Pressure Source [Right Arm] Automatic Cuff Blood Pressure Position [Right Arm] Sitting 02 Sat by Pulse Oximetry 98 97 Oxygen Delivery Method Room Air Room Air Lab Data Lab results reviewed: Yes I reviewed the patient's lab results. Lab Results 11/15/23 02:25: WBC 9.5, RBC 4.61, Hgb 14.6, Hct 42.1, MCV 91.4, MCH 31.6 H, MCHC 34.6, RDW 14.2, Plt Count 288, MPV 8.3, Neut % (Auto) 47.5, Lymph % (Auto) 41.2, Marion % (Auto) 5.6, Eos % (Auto) 3.9, Baso % (Auto) 1.8, Neut # (Auto) 4.5, Lymph # (Auto) 3.9, Marion # (Auto) 0.5, Eos # (Auto) 0.4, Baso # (Auto) 0.2, Sodium 141, Potassium 3.5, Chloride 106, Carbon Dioxide 28, Anion Gap 10.5, BUN 14, Creatinine 0.90, Estimated Creat Clear 51, Estimated GFR 62, Est GFR ( Amer) 76, Glucose 98, Calcium 9.5, Total Bilirubin 0.5, AST 43 H, ALT 35, Alkaline Phosphatase 95, Total Protein 8.5 H, Albumin 4.5, Globulin 4.0 H, Albumin/Globulin Ratio 1.1, Lipase 86 11/15/23 02:25 11/15/23 02:25 Orders (Tests/Meds): ED MEDICATIONS Generic Name Dose Route Start Last Admin Trade Name Freq PRN Reason Stop Dose Admin Sodium Chloride 10 ml 11/15/23 03:15 11/15/23 03:16 Sodium Chloride 0.9% 10ml Syr (Rad Only) IV 12/15/23 03:14 10 ml NEEDED PRN Administration Maintain IV Site Discontinued Medications Generic Name Dose Route Start Last Admin Trade Name Freq PRN Reason Stop Dose Admin Iopamidol 75 ml 11/15/23 03:15 11/15/23 03:16 Iopamidol-370 (76%);100ml Bottle IV 11/15/23 03:16 75 ml ONCE ONE Administration ORDERS Category Date Time Status CT abdomen pelvis w con Stat Cat Scan 11/15/23 02:27 Completed CBC w/Auto Diff [Complete Blood Count Auto Diff] Stat Lab 11/15/23 02:25 Completed CMP [Comprehensive Metabolic Panel] Stat Lab 11/15/23 02:25 Completed Lipase Stat Lab 11/15/23 02:25 Completed Medical Decision Narrative: 68-year-old female with history of MIRELES, osteoporosis, IBS, prior cholecystectomy presents with approximate 1 week of intermittent sporadic generalized abdominal pain.. History was obtained via interactive discussion with patient. On arrival, patient is [afebrile, hemodynamically stable, satting appropriately, alert, oriented x4, GCS 15], moving all extremities spontaneously. Full physical exam performed and significant for mild abdominal distention, otherwise benign exam without significant tenderness to Differential includes but is not limited to IBS, constipation, diverticulitis, sphincter of Oddi dysfunction, pancreatitis, gastroenteritis, malignancy. Patient was declined any medications for pain at this time. Workup initiated including CBC CMP lipase CT abdomen pelvis with IV contrast.. On re-evaluation, patient [remains afebrile, HD stable.] Laboratory workup independently interpreted by me and significant for minimal AST elevation, otherwise complete benign labs.. Imaging independently interpreted by me and significant for moderate colonic stool burden and mild distention secondary to gas. No other acute pathology noted.. See radiology read for full review of final results. Given patient history, exam and workup, patient's presentation most likely represents bleeding secondary to increased colonic stool burden and intermittent abdominal pain secondary to gas cramping. I had extensive discussion with patient regarding her symptoms. She is discharged in stable condition with instructions to use MiraLAX to increase her bowel movements.. Procedures Risk/Benefits of Procedure(s) Were Explained: Yes Critical Care Critical Care Time Critical Care Time: No
[2023-11-15 02:46] LABS: Basophils # 0.2 K/mm3 (0-0.2); Basophils % 1.8 % (0.1-2.0); Eosinophils # 0.4 K/mm3 (0.0-0.4); Eosinophils % 3.9 % (0.1-12.0); Hematocrit 42.1 % (37.0-47.0); Hemoglobin 14.6 g/dL (12.2-16.2); Lymphocytes # 3.9 K/mm3 (0.7-4.5); Lymphocytes % 41.2 % (10-50); Mean Corpuscular HGB Conc 34.6 g/dL (31.8-35.4); Mean Corpuscular Hemoglobin 31.6 pg (27.0-31.2); Mean Corpuscular Volume 91.4 fl (81-99); Mean Platelet Volume 8.3 fl (7.4-10.4); Monocytes # 0.5 K/mm3 (0.1-1.0); Monocytes % 5.6 % (1.7-9.3); Neutrophils # 4.5 K/mm3 (1.8-7.8); Neutrophils % 47.5 % (37.0-80.0); Platelet Count 288 K/mm3 (142-424); Red Blood Count 4.61 M/mm3 (4.20-5.40); Red Cell Distribution Width 14.2 % (11.5-17.5); White Blood Count 9.5 K/mm3 (4.8-10.8)
[2023-11-15 02:47] LABS: Chloride 106 mmol/L (98-107); Potassium 3.5 mmoL/L (3.5-5.1); Sodium 141 mmol/L (136-145)
[2023-11-15 02:49] LABS: Blood Urea Nitrogen 14 mg/dl (7-17); Creatinine Clearance Estimated 51 mL/min (50-200); Estimated Glomerular Filt Rate 62 ml/min (>60); GFR (African American) 76 ML/MIN (>60)
[2023-11-15 02:50] LABS: Alanine Aminotransferase 35 U/L (12-78); Albumin Level 4.5 g/dl (3.5-5.0); Albumin/Globulin Ratio 1.1 (1.1-1.8); Alkaline Phosphatase 95 U/L (38-126); Anion Gap 10.5 mEq/L (5-15); Aspartate Amino Transferase 43 U/L (14-36); Bilirubin,Total 0.5 mg/dl (0.2-1.3); Calcium 9.5 mg/dl (8.4-10.2); Carbon Dioxide 28 mmol/L (22.0-30.0); Glucose 98 mg/dl (74-100); Lipase 86 U/L (23-300); Total Protein,Serum 8.5 g/dl (6.3-8.2)
--- NOTE | 2023-11-15 03:00 | PC.NURSE ---
Addendum entered by Josiah Peguero RN 11/15/23 03:12: Patient to CT Original Note: pateint to
--- NOTE | 2023-11-15 03:11 | PC.NURSE ---
patient returned from CT
[2023-11-15] MEDS: SODIUM CHLORIDE 0.9% 10ML SYR (RAD ONLY) 10 ML IV (03:16)
[2023-11-15] MEDS: IOPAMIDOL-370 (76%);100ML BOTTLE 75 ML IV (03:16)
[2023-11-15 04:10] VITALS: BP 131/79; PULSE 83; RESP 15; TEMP 36.6; O2SAT 97
[2023-11-15 04:13] VITALS: BP 137/81; PULSE 91; RESP 18; TEMP 36.7; O2SAT 98
== END 2023-11-15 04:13 | disposition home or self-care (01) ==
PROVIDERS: Emergency Provider Emergency Medicine; PCP Physician Assistant
DX: R10.32 Left lower quadrant pain (principal); R14.0 Abdominal distension (gaseous)
CPT/HCPCS: 74177; 80053; 83690; 85025; 99284; Q9967

== ENCOUNTER 2024-01-20 10:40 | Outpatient (CLI) | payer MEDICARE, SELFPAY ==
--- NOTE | 2024-01-20 10:49 | XR_ITS ---
FINAL REPORT CLINICAL HISTORY: abdominal pain COMPARISON: 06/11/2021 FINDINGS: A PA view of the chest was obtained. The mediastinum is unremarkable. There is mild biapical scarring. The lungs are otherwise clear. There is no free air beneath the diaphragm. Upright and supine views of the abdomen reveal a nonspecific, nonobstructive bowel gas pattern. No abnormal calcifications are identified. There is a moderate to large amount of retained stool throughout the colon. Postoperative changes are seen in the right upper quadrant. There are moderate to severe degenerative changes of both hips. IMPRESSION: Stool burden as above. Reviewed, Interpreted and Dictated by Celio Tovar III, MD Transcribed by Ayde Wall Authenticated and . [facility]
== END 2024-01-20 23:59 | disposition home or self-care (01) ==
PROVIDERS: PCP Physician Assistant; Visit Provider Physician Assistant
DX: R10.9 Unspecified abdominal pain (principal)
CPT/HCPCS: 74021

== ENCOUNTER 2024-02-25 16:24 | Emergency (ER) | payer MEDICARE, SELFPAY ==
[2024-02-25 16:40] VITALS: BP 139/62; PULSE 84; RESP 18; TEMP 36.8; O2SAT 97; BMI 22.6
--- NOTE | 2024-02-25 16:46 | ED_ITS ---
Discharge Plan Disposition Patient Disposition: Home, Self-Care Condition: Good Prescriptions Prescriptions: No Action meloxicam 7.5 mg tablet 7.5 mg PO DAILY Patient Comments: TAKE 1 TABLET BY MOUTH ONCE DAILY amitriptyline 10 mg tablet 10 mg PO DAILY Patient Comments: TAKE 1 TABLET BY MOUTH ONCE DAILY pantoprazole 40 mg tablet,delayed release (DR/EC) 40 mg PO DAILY cyclobenzaprine 5 mg tablet 5 mg PO DAILY Patient Comments: TAKE 1 TABLET BY MOUTH TWICE DAILY Linzess 72 mcg capsule 72 mcg PO DAILY Patient Comments: TAKE 1 CAPSULE BY MOUTH ONCE DAILY Referrals Follow up/Referrals: Virginia Barbosa PA [Primary Care Provider] - See instructions Activity Restrictions/Add. Instructions Additional Instructions/Restrictions: *Monitor Temp, Over the counter Motrin or Tylenol as directed/as needed Tylenol every 4 hours and Motrin every 6 hours (as long as your family doctor has told you that you can take it) for fever or pain. and straight to ER if unable to lower temp less than 101.0 after medication given *Warm salt water gargles may help to soothe the throat *Throat Lozenges? *Warm fluids like tea with honey may help to soothe the throat? *Sleep elevated *Humidifier/Vaporizer Your throat swab was sent for culture. Those results are typically sent to your primary care. Be sure to follow up in 2-3 days with your family doctor/primary care physician if no improvement so they can review those result and treat if necessary. If you don?t have a primary care doctor, I recommend you get one but in the mean time, you will have to return to a walk in clinic Follow up IMMEDIATELY for new or worsening symptoms or no Noticeable improvement over the next 48-72 hours. 911 for difficulty breathing or swallowing You were tested for today for Upper Respiratory Panel with COVID19 your test result should be back in the next 24hours, you may check for your results on the [facility] Digital Health Portal Clinical Impressions Clinical Impression: Viral upper respiratory infection Instructions Patient Instructions: DI for Viral Upper Respiratory Infection -- Adult, Sore Throat, DI for Nasal Congestion Print Language Print Language: Indonesian Discharge ED Provider: Kecia Ureña [facility] HPI General Stated complaint: headache,body aches,fatigue,congestion Mode of Arrival: Ambulatory Source of Information: Patient Time Seen by Provider: 02/25/24 16:46 Description of Symptoms (Recalled from Triage Doc. by RN): PA, CHILLS, FATIGUE, CONGESTION, BODY ACHES HEENT Symptoms (Recalled from RN notes): Yes Resp Symptoms (Recalled from RN notes): Yes Skin Symptoms (Recalled from RN notes): No MS Symptoms (Recalled from RN notes): No Functional Status (Recalled from RN notes): WNL History of Present Illness Provider Complaint: Patient states that she hasnt felt well for the last couple of days States that she has been having body aches, chills, nasal congestion, scratchy throat, fatigue and headache States feels like she may have the flu or one of the viruses going around wanting to get checked Related Data Home Medications ?Medication ?Instructions ?Recorded ?Confirmed amitriptyline 10 mg tablet 10 mg PO DAILY 02/25/24 02/25/24 cyclobenzaprine 5 mg tablet 5 mg PO DAILY 02/25/24 02/25/24 linaclotide 72 mcg capsule 72 mcg PO DAILY 02/25/24 02/25/24 (Linzess) meloxicam 7.5 mg tablet 7.5 mg PO DAILY 02/25/24 02/25/24 pantoprazole 40 mg tablet,delayed 40 mg PO DAILY 02/25/24 02/25/24 release Allergies Allergy/AdvReac Type Severity Reaction Status Date / Time amoxicillin [From Augmentin] Allergy Verified 02/02/24 09:55 cimetidine [From Tagamet] Allergy Verified 02/02/24 09:55 clavulanic acid Allergy Verified 02/02/24 09:55 [From Augmentin] codeine Allergy Verified 02/02/24 09:55 Penicillins Allergy Verified 02/02/24 09:55 dicyclomine [From Bentyl] AdvReac Vomiting Verified 02/02/24 10:13 Worker's Comp Is this a Worker's Comp case?: No [facility] Disclaimer: The information contained in this section may have been updated after the kevene nt was seen, as this information can be updated by other users. Medical History Acute diarrhea Anxiety COPD (chronic obstructive pulmonary disease) Depression Hypotension Osteoporosis RUQ abdominal pain Surgical History Hx of cholecystectomy No significant past surgical history Family History Other No significant family history Social History Smoking Status: Never smoker alcohol intake: never substance use type: denies use current occupational status: other Travel in the last 8 weeks: None housing: house current occupational exposures/hazards: No caffeine: No ROS Obtained: Yes All systems reviewed & no additional complaints except as documented and Yes Systems reviewed as appropriate & no additional complaints except as documented Constitutional Constitutional: Reports system reviewed and no additional complaints, except as documented, Reports as per HPI, Reports body ache, Reports chills, Reports fatigue, Denies fever(s) and Reports headache(s) ENT Ears, Nose, Mouth, and Throat: Reports system reviewed and no additional complaints, except as documented, Reports as per HPI, Reports headache(s), Reports nasal congestion, Reports nasal discharge, Reports sore throat and R eports other (states does have hoarse voice) Cardiovascular Cardiovascular: Reports system reviewed and no additional complaints, except as documented and Reports as per HPI Respiratory Respiratory: Reports system reviewed and no additional complaints, except as documented, Reports as per HPI, Denies shortness of breath, Denies chest congestion, Denies cough and Denies wheezing Gastrointestinal Gastrointestingal: Reports system reviewed and no additional complaints, except as documented and as per HPI Neurologic Neurologic: Reports headache(s) Endocrine Endocrine: Reports fatigue Allergic/Immunologic Allergic/Immunologic: Denies wheezing Physical Exam General General appearance: alert and in no apparent distress ENT ENT exam: Present mucous membranes moist Expanded ENT Exam Nose exam: Absent sinus tenderness Throat exam: Present normal inspection Respiratory Respiratory exam: Present normal lung sounds bilaterally; Absent respiratory distress or wheezes Cardiovascular Cardiovascular exam: Present regular rate, normal rhythm and normal heart sounds Abdominal Exam Abdominal exam: Present soft and normal bowel sounds; Absent distention or tenderness Neurological Exam Neurological exam: Present alert, oriented X3 and normal gait Medical Decision Making Medical Records Screening: Per USPSTF and CDC recommendations, given the prevalence of disease in our region, it is our hospital?s policy to screen for HIV and viral Hepatitis for all patients aged 18 and over and those with ongoing risk factors. Marc Inquiry Pt receiving controlled substance: No Marc was queried for this patient: No Vital Signs: 02/25/24 16:40 Temperature 98.2 F Temperature Source Oral Pulse Rate [Left Brachial] 84 Respiratory Rate 18 Blood Pressure [Left Arm] 139/62 Blood Pressure Mean [Left Arm] 87 02 Sat by Pulse Oximetry 97 Lab Data Lab results reviewed: Yes I reviewed the patient's lab results. Medical Decision Narrative: Patient requesting URP
[2024-02-25 16:57] LABS: UTC Influenza A Antigen Negative (Negative); UTC Influenza B Antigen Negative (Negative)
[2024-02-25 17:21] LABS: UTC Strep Screen (Rapid) Negative (Negative)
[2024-02-25 17:26] VITALS: BP 139/62; PULSE 84; RESP 18; TEMP 36.8
[2024-02-25 17:30] LABS: Adenovirus,PCR Not Detected (NotDetected); Bordetella Pertussis Not Detected (NotDetected); Chlamydophila Pneumoniae, PCR Not Detected (NotDetected); Coronavirus 19, PCR Not Detected (NotDetected); Coronavirus 229E Not Detected (NotDetected); Coronavirus NL63 Not Detected (NotDetected); Coronavirus OC43 Not Detected (NotDetected); Coronovirus HKU1,PCR Not Detected (NotDetected); Human Metapneumovirus Not Detected (NotDetected); Influenza A, PCR Not Detected (NotDetected); Influenza AH1, 2009 Not Detected (NotDetected); Influenza AH1, PCR Not Detected (NotDetected); Influenza AH3,PCR Not Detected (NotDetected); Influenza B, PCR Not Detected (NotDetected); Mycoplasma Pneumoniae, PCR Not Detected (NotDetected); Parainfluenza 1, PCR Not Detected (NotDetected); Parainfluenza 2, PCR Not Detected (NotDetected); Parainfluenza 3, PCR Not Detected (NotDetected); Parainfluenza 4, PCR Not Detected (NotDetected); Respiratory Syncytial Virus Not Detected (NotDetected); Rhinovirus/Enterovirus Not Detected (NotDetected)
== END 2024-02-25 17:29 | disposition home or self-care (01) ==
PROVIDERS: Emergency Provider Nurse Practitioner; PCP Physician Assistant
DX: J06.9 Acute upper respiratory infection, unspecified (principal); R51.9 Headache, unspecified; R68.83 Chills (without fever); R53.83 Other fatigue; R09.81 Nasal congestion; M79.10 Myalgia, unspecified site
CPT/HCPCS: 87265; 87486; 87581; 87632; 87635; 87804; 87880; 99212; G0381

== ENCOUNTER 2024-03-26 12:47 | Emergency (ER) | payer MEDICARE, SELFPAY ==
[2024-03-26 14:05] VITALS: BP 113/62; PULSE 91; RESP 19; TEMP 36.9; O2SAT 98; BMI 23.1
--- NOTE | 2024-03-26 14:15 | ED_ITS ---
Discharge Plan Disposition Patient Disposition: Home, Self-Care Condition: Good Prescriptions Prescriptions: New azithromycin [Zithromax] 250 mg tablet 250 mg PO UD DOSE PK Qty: 6 0RF Rx Instructions: Take two (2) tablets today, then one (1) tablet days #2 thru #5 benzonatate 100 mg capsule 100 mg PO TIDP PRN (Reason: Cough) Qty: 30 0RF methylprednisolone 4 mg Tablets,Dose Pack 4 mg PO DIRECTED 6 Days Qty: 21 0RF Rx Instructions: Take 1 pack as directed for 6 days guaifenesin [Mucinex] 600 mg tablet extended release 12hr 600 - 1,200 mg PO BIDP PRN (Reason: Congestion) Qty: 30 0RF No Action meloxicam 7.5 mg tablet 7.5 mg PO DAILY Patient Comments: TAKE 1 TABLET BY MOUTH ONCE DAILY amitriptyline 10 mg tablet 10 mg PO DAILY Patient Comments: TAKE 1 TABLET BY MOUTH ONCE DAILY pantoprazole 40 mg tablet,delayed release (DR/EC) 40 mg PO DAILY cyclobenzaprine 5 mg tablet 5 mg PO DAILY Patient Comments: TAKE 1 TABLET BY MOUTH TWICE DAILY Linzess 72 mcg capsule 72 mcg PO DAILY Patient Comments: TAKE 1 CAPSULE BY MOUTH ONCE DAILY Referrals Follow up/Referrals: Toya Chamberlain APRN [Primary Care Provider] - See instructions Activity Restrictions/Add. Instructions Additional Instructions/Restrictions: Drink plenty of fluids. Take tylenol or ibuprofen for pain or fever. Take the medications as directed. Follow up with your regular doctor. GO TO THE ER FOR ANY WORSENING SYMPTOMS Clinical Impressions Clinical Impression: Acute bronchitis, Acute viral syndrome Instructions Patient Instructions: DI for Acute Bronchitis Print Language Print Language: Sinhala Discharge ED Provider: Murali Guevara [facility] General Stated complaint: laryngitis, body aches, headache Time Seen by Provider: 03/26/24 14:14 Related Data Home Medications ?Medication ?Instructions ?Recorded ?Confirmed amitriptyline 10 mg tablet 10 mg PO DAILY 02/25/24 02/25/24 cyclobenzaprine 5 mg tablet 5 mg PO DAILY 02/25/24 02/25/24 linaclotide 72 mcg capsule 72 mcg PO DAILY 02/25/24 02/25/24 (Linzess) meloxicam 7.5 mg tablet 7.5 mg PO DAILY 02/25/24 03/26/24 pantoprazole 40 mg tablet,delayed 40 mg PO DAILY 02/25/24 03/26/24 release Previous Rx's ?Medication ?Instructions ?Recorded azithromycin 250 mg tablet 250 mg PO UD DOSE PK #6 tabs 03/26/24 (Zithromax) benzonatate 100 mg capsule 100 mg PO TIDP PRN Cough #30 caps 03/26/24 guaifenesin 600 mg tablet, 600 - 1,200 mg (1 - 2 x 600 mg) PO 03/26/24 extended release 12 hr (Mucinex) BIDP PRN Congestion #30 tabs methylprednisolone 4 mg tablets in 4 mg PO DIRECTED 6 days #21 tabs 03/26/24 a dose pack Allergies Allergy/AdvReac Type Severity Reaction Status Date / Time amoxicillin (From Augmentin) Allergy Verified 02/02/24 09:55 cimetidine (From Tagamet) Allergy Verified 02/02/24 09:55 clavulanic acid (From Allergy Verified 02/02/24 09:55 Augmentin) codeine Allergy Verified 02/02/24 09:55 Penicillins Allergy Verified 02/02/24 09:55 dicyclomine (From Bentyl) AdvReac Vomiting Verified 02/02/24 10:13 PFSH PFSH Disclaimer: The information contained in this section may have been updated after the patient was seen, as this information can be updated by other users. Medical History Acute diarrhea Anxiety COPD (chronic obstructive pulmonary disease) Depression Hypotension Osteoporosis RUQ abdominal pain Surgical History Hx of cholecystectomy No significant past surgical history Family History Other No significant family history Social History Smoking Status: Never smoker alcohol intake: never substance use type: denies use current occupational status: other Travel in the last 8 weeks: None housing: house current occupational exposures/hazards: No caffeine: No ROS Obtained: Yes All systems reviewed & no additional complaints except as documented Constitutional Constitutional: Reports chills and Reports fever(s) Eyes Eyes: Denies eye discharge ENT Ears, Nose, Mouth, and Throat: Reports as per HPI Cardiovascular Cardiovascular: Denies chest pain Respiratory Respiratory: Denies chest congestion and Reports cough Gastrointestinal Gastrointestingal: Reports nausea; Denies abdominal pain, constipation, cramping, diarrhea or vomiting Musculoskeletal Musculoskeletal: Denies arthralgias Integumentary/Breasts Skin/Breast: Denies rash Neurologic Neurologic: Denies paresthesias Physical Exam General General appearance: alert and in no apparent distress Head Head exam: atraumatic, normocephalic and normal inspection Eye Eye exam: Present normal appearance, PERRL and EOMI ENT ENT exam: Present mucous membranes moist and normal external ear exam Expanded ENT Exam TM/Canal exam: Bilateral TM: erythema and bulging Nose exam: Absent sinus tenderness Mouth exam: Present normal external inspection; Absent drooling Teeth exam: Present normal inspection Throat exam: Present tonsillar erythema, tonsillomegaly and tonsillar exudate Neck Neck exam: Present normal inspection, full ROM and trachea midline; Absent tenderness, meningismus or lymphadenopathy Chest Chest inspection: Present normal inspection and symmetric chest wall rise; Absent tenderness Respiratory Respiratory exam: Present normal lung sounds bilaterally; Absent respiratory distress, wheezes, stridor or accessory muscle use Cardiovascular Cardiovascular exam: Present regular rate and normal rhythm; Absent systolic murmur or diastolic murmur Abdominal Exam Abdominal exam: Present soft and normal bowel sounds; Absent distention, tenderness, guarding, rebound or rigidity Extremities Exam Extremities exam: Present normal inspection and normal capillary refill; Absent calf tenderness Back Exam Back exam: Present normal inspection and full ROM; Absent tenderness, CVA tenderness (R) or CVA tenderness (L) Neurological Exam Neurological exam: Present alert, oriented X3 and CN II-XII intact Psychiatric Psychiatric exam: Present normal affect and normal mood Skin Skin exam: Present warm, dry, intact and normal color Medical Decision Making Medical Records Medical records reviewed: No I reviewed the patient's medical records. Screening: Per USPSTF and CDC recommendations, given the prevalence of disease in our region, it is our hospital?s policy to screen for HIV and viral Hepatitis for all patients aged 18 and over and those with ongoing risk factors. Marc Inquiry Pt receiving controlled substance: No
[2024-03-26 14:33] VITALS: BP 113/62; PULSE 91; RESP 19; TEMP 36.9; O2SAT 98
== END 2024-03-26 14:36 | disposition home or self-care (01) ==
PROVIDERS: Emergency Provider Nurse Practitioner Family; PCP Nurse Practitioner Family
DX: J20.9 Acute bronchitis, unspecified (principal)
CPT/HCPCS: 99213; G0381

== ENCOUNTER 2024-04-02 15:13 | Outpatient (CLI) | payer MEDICARE, SELFPAY ==
--- NOTE | 2024-04-02 15:16 | XR_ITS ---
PROCEDURE INFORMATION: Exam: XR Chest Exam date and time: 04/02/2024 3:20 PM Age: 68 years old Clinical indication: Cough and wheezing; Additional info: Wheezing, cough TECHNIQUE: Imaging protocol: Radiologic exam of the chest. Views: 2 views. Total images: 2 COMPARISON: CT CHEST WO CON 07/30/2023 10:02 AM FINDINGS: Lungs: Bilateral hyperinflation is present. No focal pneumonia. Pleural spaces: Unremarkable. No pleural effusion. No pneumothorax. Heart/Mediastinum: The heart is not enlarged. Bones/joints: Slight leftward curvature of the thoracic spine with degenerative changes. Degenerative changes of the glenohumeral and acromioclavicular joints. IMPRESSION: 1. Bilateral hyperinflation is present. 2. No focal pneumonia. 3. Degenerative changes of the glenohumeral and acromioclavicular joints.
== END 2024-04-02 23:59 | disposition home or self-care (01) ==
LOC: RAD 15:14
PROVIDERS: PCP Nurse Practitioner Family; Visit Provider Nurse Practitioner Family
DX: J18.9 Pneumonia, unspecified organism (principal)
CPT/HCPCS: 71046

== ENCOUNTER 2024-04-13 07:46 | Outpatient (CLI) | payer MEDICARE, SELFPAY ==
--- NOTE | 2024-04-13 07:47 | US_ITS ---
FINAL REPORT CLINICAL HISTORY: Fatty liver/steatosis/morphology check COMPARISON: CT abdomen and pelvis dated 11/15/2023 FINDINGS: Sonographic images of the right upper quadrant were obtained. The pancreas is obscured. There is fatty infiltration of the liver. The gallbladder has been surgically resected. There is no evidence of biliary ductal dilatation.The common duct measures 4mm. Limited images of the right kidney are unremarkable. IMPRESSION: Fatty infiltration of the liver. Prior cholecystectomy. Reviewed, Interpreted and Dictated by Celio Tovar III, MD Transcribed by Nette Harris Authenticated and [facility]
== END 2024-04-13 23:59 | disposition home or self-care (01) ==
LOC: RAD 07:47
PROVIDERS: PCP Nurse Practitioner Family; Referring Provider Nurse Practitioner; Visit Provider Nurse Practitioner Family
DX: K76.0 Fatty (change of) liver, not elsewhere classified (principal)
CPT/HCPCS: 76705

== ENCOUNTER 2024-04-15 09:57 | Outpatient (CLI) | payer MEDICARE, SELFPAY ==
[2024-04-15] MEDS: ALBUTEROL 0.083% 2.5 MG/3 ML NEB IH (10:28)
== END 2024-04-15 23:59 | disposition home or self-care (01) ==
LOC: RT 09:58
PROVIDERS: PCP Nurse Practitioner Family; Visit Provider Nurse Practitioner Family
DX: R06.02 Shortness of breath (principal); R09.89 Other specified symptoms and signs involving the circulatory and respiratory systems
CPT/HCPCS: 94060; J7613

== ENCOUNTER 2024-05-03 13:52 | Emergency (ER) | payer MEDICARE, SELFPAY ==
[2024-05-03 15:34] VITALS: BP 127/59; PULSE 93; RESP 18; TEMP 36.8; O2SAT 97; BMI 23.5
[2024-05-03 15:49] LABS: UTC Influenza A Antigen Negative (Negative); UTC Influenza B Antigen Negative (Negative)
--- NOTE | 2024-05-03 16:03 | ED_ITS ---
Discharge Plan Disposition Patient Disposition: Home, Self-Care Condition: Good Prescriptions Prescriptions: New azithromycin [Zithromax] 250 mg tablet 250 mg PO UD DOSE PK Qty: 6 0RF Rx Instructions: Take two (2) tablets today, then one (1) tablet days #2 thru #5 benzonatate 100 mg capsule 100 mg PO TIDP PRN (Reason: Cough) Qty: 30 0RF methylprednisolone 4 mg Tablets,Dose Pack 4 mg PO DIRECTED 6 Days Qty: 21 0RF Rx Instructions: Take 1 pack as directed for 6 days No Action levofloxacin 500 mg tablet 500 mg PO DAILY 10 Days Qty: 10 0RF albuterol sulfate 90 mcg/actuation HFA aerosol inhaler 2 puff inhalation Q4-6H PRN (Reason: shortness of breath or wheezing) Qty: 6.7 0RF cyclobenzaprine 5 mg tablet 5 mg PO DAILY Qty: 60 3RF amitriptyline 10 mg tablet 10 mg PO DAILY Qty: 30 3RF cholecalciferol (vitamin D3) 50 mcg (2,000 unit) capsule 50 mcg PO DAILY Qty: 30 5RF calcium carbonate 600 mg calcium (1,500 mg) tablet 600 mg PO BID Qty: 180 1RF meloxicam 7.5 mg tablet 7.5 mg PO DAILY Patient Comments: TAKE 1 TABLET BY MOUTH ONCE DAILY pantoprazole 40 mg tablet,delayed release (DR/EC) 40 mg PO DAILY Referrals Follow up/Referrals: Toya Chamberlain APRN [Primary Care Provider] - See instructions Activity Restrictions/Add. Instructions Additional Instructions/Restrictions: Drink plenty of fluids. Take tylenol or ibuprofen for pain or fever. Take the medications as directed. Follow up with your regular doctor. GO TO THE ER FOR ANY WORSENING SYMPTOMS Clinical Impressions Clinical Impression: Acute bronchitis, Acute viral syndrome Instructions Patient Instructions: DI for Acute Bronchitis, DI for Viral Syndrome Print Language Print Language: Maltese Discharge ED Provider: Murali Guevara [facility] [place] HPI General Stated complaint: fever, cough, body aches. chills, headache Mode of Arrival: Ambulatory Source of Information: Patient Time Seen by Provider: 05/03/24 16:02 Description of Symptoms (Recalled from Triage Doc. by RN): PA, BODY ACHES, FEVER X6 DAYS HEENT Symptoms (Recalled from RN notes): Yes Resp Symptoms (Recalled from RN notes): Yes Skin Symptoms (Recalled from RN notes): No MS Symptoms (Recalled from RN notes): No Functional Status (Recalled from RN notes): WNL Related Data Home Medications ?Medication ?Instructions ?Recorded ?Confirmed meloxicam 7.5 mg tablet 7.5 mg PO DAILY 02/25/24 03/26/24 pantoprazole 40 mg tablet,delayed 40 mg PO DAILY 02/25/24 03/26/24 release Previous Rx's ?Medication ?Instructions ?Recorded albuterol sulfate 90 mcg/actuation 2 puff inhalation Q4-6H PRN 04/02/24 aerosol inhaler shortness of breath or wheezing #6.7 grams amitriptyline 10 mg tablet 10 mg PO DAILY #30 tabs 04/02/24 calcium carbonate 600 mg PO BID #180 tabs 04/02/24 cholecalciferol (vitamin D3) 50 50 mcg PO DAILY #30 caps 04/02/24 mcg (2,000 unit) capsule cyclobenzaprine 5 mg tablet 5 mg PO DAILY #60 tabs 04/02/24 levofloxacin 500 mg tablet 500 mg PO DAILY 10 days #10 tabs 04/02/24 azithromycin 250 mg tablet 250 mg PO UD DOSE PK #6 tabs 05/03/24 (Zithromax) benzonatate 100 mg capsule 100 mg PO TIDP PRN Cough #30 caps 05/03/24 methylprednisolone 4 mg tablets in 4 mg PO DIRECTED 6 days #21 tabs 05/03/24 a dose pack Allergies Allergy/AdvReac Type Severity Reaction Status Date / Time amoxicillin (From Augmentin) Allergy Verified 04/02/24 14:48 cimetidine (From Tagamet) Allergy Verified 04/02/24 14:48 clavulanic acid (From Allergy Verified 04/02/24 14:48 Augmentin) codeine Allergy Verified 04/02/24 14:48 Penicillins Allergy Verified 04/02/24 14:48 dicyclomine (From Bentyl) AdvReac Vomiting Verified 04/02/24 14:48 Worker's Comp Is this a Worker's Comp case?: No [facility] Disclaimer: The information contained in this section may have been updated after the patient was seen, as this information can be updated by other users. Medical History Acute diarrhea Osteoporosis COPD (chronic obstructive pulmonary disease) Depression RUQ abdominal pain Hypotension Anxiety Surgical History Hx of cholecystectomy No significant past surgical history Family History Other No significant family history Social History (Updated 04/05/24 @ 09:23 by Toya Chamberlain APRN) Smoking Status: Never smoker alcohol intake: never substance use type: denies use current occupational status: other Travel in the last 8 weeks: None housing: house current occupational exposures/hazards: No caffeine: No Have you lived/traveled outside [place] in past 30 days?: No Contact w/someone who lives/traveled outside [place] past 30 days?: No Exposure to someone with infectious disease in past 14 days?: No Do you have a fever (greater than 100.4 F or 38 C)?: Yes Have you tested positive for COVID-19: No Exposed to someone with COVID-19 in past 14 days?: No Do you have a sore throat?: Yes Do you have a cough?: Yes Do you have any weakness?: Yes Do you have any diarrhea?: No Are you experiencing any unusual bleeding?: No Do you have any muscle aches/pain?: Yes Do you have any abdominal pain?: No Are you experiencing loss of taste or smell?: No ROS Obtained: Yes All systems reviewed & no additional complaints except as documented Constitutional Constitutional: Reports poor appetite Eyes Eyes: Reports system reviewed and no additional complaints, except as documented ENT Ears, Nose, Mouth, and Throat: Reports as per HPI Cardiovascular Cardiovascular: Reports system reviewed and no additional complaints, except as documented and Denies chest pain Respiratory Respiratory: Denies shortness of breath, Reports chest congestion, Reports cough, Denies stridor and Denies wheezing Gastrointestinal Gastrointestingal: Reports system reviewed and no additional complaints, except as documented; Denies abdominal pain, diarrhea or vomiting Musculoskeletal Musculoskeletal: Reports system reviewed and no additional complaints, except as documented and Denies arthralgias Integumentary/Breasts Skin/Breast: Reports system reviewed and no additional complaints, except as documented and Denies rash Neurologic Neurologic: Denies paresthesias Allergic/Immunologic Allergic/Immunologic: Denies wheezing Physical Exam General General appearance: alert and in no apparent distress Eye Eye exam: Present normal appearance, PERRL and EOMI ENT ENT exam: Present mucous membranes moist and normal external ear exam Expanded ENT Exam External ear exam: Present normal external inspection TM/Canal exam: Bilateral TM: erythema and bulging Nose exam: Absent sinus tenderness Nasal speculum exam: Bilateral: normal Mouth exam: Present normal external inspection; Absent drooling Teeth exam: Present normal inspection Throat exam: Present tonsillar erythema and tonsillomegaly Neck Neck exam: Present normal inspection, full ROM and trachea midline; Absent tenderness, lymphadenopathy or thyromegaly Chest Chest inspection: Present normal inspection and symmetric chest wall rise; Absent tenderness or rash Respiratory Respiratory exam: Present normal lung sounds bilaterally; Absent respiratory distress, wheezes, stridor or accessory muscle use Cardiovascular Cardiovascular exam: Present regular rate, normal rhythm and normal heart sounds Abdominal Exam Abdominal exam: Present soft; Absent distention, tenderness, guarding, rebound or rigidity Extremities Exam Extremities exam: Present normal inspection, full ROM and normal capillary refill; Absent tenderness or calf tenderness Back Exam Back exam: Present normal inspection and full ROM; Absent tenderness Neurological Exam Neurological exam: Present alert and oriented X3 Psychiatric Psychiatric exam: Present normal affect and normal mood Skin Skin exam: Present warm, dry, intact and normal color Lymphatic Lymphatic Findings: no adenopathy Medical Decision Making Medical Records Medical records reviewed: No I reviewed the patient's medical records. Screening: Per USPSTF and CDC recommendations, given the prevalence of disease in our region, it is our hospital?s policy to screen for HIV and viral Hepatitis for all patients aged 18 and over and those with ongoing risk factors. Marc Inquiry Pt receiving controlled substance: No Vital Signs: 05/03/24 15:34 Temperature 98.3 F Temperature Source Oral Pulse Rate [Left Brachial] 93 H Respiratory Rate 18 Blood Pressure [Left Arm] 127/59 L Blood Pressure Mean [Left Arm] 81 02 Sat by Pulse Oximetry 97 Lab Data Lab Results 05/03/24 15:36: Influenza Type A Ag Negative, Influenza Type B Ag Negative
[2024-05-03 16:33] VITALS: BP 127/59; PULSE 93; RESP 18; TEMP 36.6
[2024-05-03 16:42] LABS: Coronavirus 19, PCR Not Detected (NotDetected); Influenza A, PCR Not Detected (NotDetected); Influenza B, PCR Not Detected (NotDetected)
== END 2024-05-03 16:38 | disposition home or self-care (01) ==
PROVIDERS: Emergency Provider Nurse Practitioner Family; PCP Nurse Practitioner Family
DX: J20.9 Acute bronchitis, unspecified (principal); B34.9 Viral infection, unspecified; R50.9 Fever, unspecified; R05.9 Cough, unspecified; R51.9 Headache, unspecified; R63.8 Other symptoms and signs concerning food and fluid intake
CPT/HCPCS: 87636; 87804; 99212; G0381

== ENCOUNTER 2024-06-21 08:47 | Outpatient (CLI) | payer MEDICARE, SELFPAY ==
[2024-06-21 09:18] LABS: Basophils # 0.1 K/mm3 (0-0.2); Basophils % 1.2 % (0.1-2.0); Eosinophils # 0.3 K/mm3 (0.0-0.4); Hemoglobin 12.9 g/dL (12.2-16.2); Mean Corpuscular Volume 89.9 fl (81-99); Mean Platelet Volume 9.9 fl (7.4-10.4); Monocytes # 0.5 K/mm3 (0.1-1.0); Neutrophils # 3.3 K/mm3 (1.8-7.8); Neutrophils % 47.6 % (37.0-80.0); White Blood Count 6.9 K/mm3 (4.8-10.8)
[2024-06-21 09:25] LABS: Eosinophils % 4.4 % (0.1-12.0); Hematocrit 37.5 % (37.0-47.0); Lymphocytes # 2.7 K/mm3 (0.7-4.5); Lymphocytes % 38.8 % (10-50); Mean Corpuscular HGB Conc 34.4 g/dL (31.8-35.4); Mean Corpuscular Hemoglobin 30.9 pg (27.0-31.2); Monocytes % 7.4 % (1.7-9.3); Platelet Count 240 K/mm3 (142-424); Red Blood Count 4.17 M/mm3 (4.20-5.40); Red Cell Distribution Width 12.8 % (11.5-17.5)
[2024-06-21 10:02] LABS: Albumin Level 4.5 g/dl (3.5-5.0); Chloride 106 mmol/L (98-107)
[2024-06-21 10:03] LABS: Potassium 4.2 mmoL/L (3.5-5.1); Sodium 141 mmol/L (136-145)
[2024-06-21 10:04] LABS: 25-OH Vitamin D, Total 95.5 ng/mL (30-100)
[2024-06-21 10:05] LABS: Alanine Aminotransferase 34 U/L (12-78); Alkaline Phosphatase 98 U/L (38-126); Anion Gap 14.2 mEq/L (5-15); Aspartate Amino Transferase 37 U/L (14-36); Bilirubin,Total 0.4 mg/dl (0.2-1.3); Blood Urea Nitrogen 24 mg/dl (7-17); Carbon Dioxide 25 mmol/L (22.0-30.0); Estimated Glomerular Filt Rate 62 ml/min (>60); GFR (African American) 76 ML/MIN (>60); Globulin 2.3 g/dL (1.3-3.2); Total Protein,Serum 6.8 g/dl (6.3-8.2); Triglycerides 155 mg/dl (30-150); VLDL Cholesterol 31 mg/dL (0-40)
[2024-06-21 10:06] LABS: Calcium 9.6 mg/dl (8.4-10.2); Chol/HDL Ratio 4.8 (1-3.5); Cholesterol 243 mg/dl (140-200); Glucose 103 mg/dl (74-100); HDL Cholesterol 51 mg/dl (40-60); Magnesium 1.7 mg/dl (1.6-2.3)
[2024-06-21 10:17] LABS: Direct LDL Cholesterol 150.34 mg/dL (100-129)
[2024-06-21 10:36] LABS: Thyroid Stimulating Hormone 4.13 uIU/mL (0.465-4.68)
[2024-06-21 10:40] LABS: Ferritin 90.3 ng/ml (11.1-264)
[2024-06-21 11:26] LABS: Vitamin B12 579 pg/mL (239-931)
== END 2024-06-21 23:59 | disposition home or self-care (01) ==
LOC: LAB 08:48
PROVIDERS: PCP Nurse Practitioner Family; Visit Provider Nurse Practitioner Family
DX: M79.7 Fibromyalgia (principal); K75.81 Nonalcoholic steatohepatitis (NASH); G47.00 Insomnia, unspecified; M81.0 Age-related osteoporosis without current pathological fracture; F41.9 Anxiety disorder, unspecified; R10.9 Unspecified abdominal pain; K58.2 Mixed irritable bowel syndrome; F32.1 Major depressive disorder, single episode, moderate
CPT/HCPCS: 36415; 80053; 80061; 82306; 82607; 82728; 83735; 84443; 85025

== ENCOUNTER 2024-07-30 05:19 | Emergency (ER) | payer MEDICARE, SELFPAY ==
[2024-07-30 05:27] VITALS: BP 124/70; PULSE 82; RESP 14; TEMP 36.4; O2SAT 98; BMI 24.2
--- NOTE | 2024-07-30 06:02 | HMH.EDGENADL ---
Discharge Plan Disposition Patient Disposition: Home, Self-Care Prescriptions Prescriptions: New clindamycin HCl 150 mg capsule 450 mg PO Q8H 7 Days Qty: 63 0RF No Action albuterol sulfate 90 mcg/actuation HFA aerosol inhaler 2 puff inhalation Q4-6H PRN (Reason: shortness of breath or wheezing) Qty: 6.7 0RF cyclobenzaprine 5 mg tablet 5 mg PO DAILY Qty: 60 3RF cholecalciferol (vitamin D3) 50 mcg (2,000 unit) capsule 50 mcg PO DAILY Qty: 30 5RF calcium carbonate 600 mg calcium (1,500 mg) tablet 600 mg PO BID Qty: 180 1RF duloxetine 30 mg capsule,delayed release(DR/EC) 30 mg PO BID Qty: 60 2RF amitriptyline 10 mg tablet 10 mg PO DAILY Qty: 30 3RF meloxicam 7.5 mg tablet 7.5 mg PO DAILY Qty: 30 2RF atorvastatin 10 mg tablet 10 mg PO DAILY Qty: 30 2RF pantoprazole 40 mg tablet,delayed release (DR/EC) 40 mg PO DAILY Referrals Follow up/Referrals: Toya Chamberlain APRN [Primary Care Provider] - See instructions Activity Restrictions/Add. Instructions Additional Instructions/Restrictions: Please take antibiotics as prescribed for treatment of dental infection. Please follow-up with dentistry as soon as possible. Clinical Impressions Clinical Impression: Dental infection Print Language Print Language: Pashto Discharge ED Provider: Orlando [facility] HPI General Chief complaint: Dental/Oral Stated complaint: tooth pain Time Seen by Provider: 07/30/24 05:22 Mode of Arrival: Ambulatory Source of Information: Patient Description of Symptoms (Recalled from ER Triage Doc. by RN): pt presents for eval of tootache with possible abscess to bottom left side of jaw with increasing in pain that began last night. Pt denies fevers at home. History of Present Illness HPI narrative: 69-year-old female with history of Broussard, IBS, arthritis, depression presents for dental pain. Patient reports pain and redness in the left mandibular incisors starting last night. She is going to see dentistry as soon as she can, hopefully today. Denies fever at home. Related Data Home Medications ?Medication ?Instructions ?Recorded ?Confirmed pantoprazole 40 mg tablet,delayed 40 mg PO DAILY 02/25/24 06/14/24 release Previous Rx's ?Medication ?Instructions ?Recorded albuterol sulfate 90 mcg/actuation 2 puff inhalation Q4-6H PRN 04/02/24 aerosol inhaler shortness of breath or wheezing #6.7 grams calcium carbonate 600 mg PO BID #180 tabs 04/02/24 cholecalciferol (vitamin D3) 50 50 mcg PO DAILY #30 caps 04/02/24 mcg (2,000 unit) capsule cyclobenzaprine 5 mg tablet 5 mg PO DAILY #60 tabs 04/02/24 amitriptyline 10 mg tablet 10 mg PO DAILY #30 tabs 06/14/24 duloxetine 30 mg capsule,delayed 30 mg PO BID #60 caps 06/14/24 release meloxicam 7.5 mg tablet 7.5 mg PO DAILY #30 tabs 06/14/24 atorvastatin 10 mg tablet 10 mg PO DAILY #30 tabs 06/22/24 clindamycin HCl 150 mg capsule 450 mg (3 x 150 mg) PO Q8H 7 days 07/30/24 #63 caps Allergies Allergy/AdvReac Type Severity Reaction Status Date / Time amoxicillin (From Augmentin) Allergy Verified 06/14/24 11:42 cimetidine (From Tagamet) Allergy Verified 06/14/24 11:42 clavulanic acid (From Allergy Verified 06/14/24 11:42 Augmentin) codeine Allergy Verified 06/14/24 11:42 Penicillins Allergy Verified 06/14/24 11:42 dicyclomine (From Bentyl) AdvReac Vomiting Verified 06/14/24 11:42 PFSH PFS Disclaimer: The information contained in this section may have been updated after the patient was seen, as this information can be updated by other users. Medical History Acute diarrhea Osteoporosis COPD (chronic obstructive pulmonary disease) Depression RUQ abdominal pain Hypotension Anxiety Surgical History Hx of cholecystectomy No significant past surgical history Family History Other No significant family history Social History Smoking Status: Never smoker alcohol intake: never substance use type: denies use current occupational status: other Travel in the last 8 weeks: None housing: house current occupational exposures/hazards: No caffeine: No Have you lived/traveled outside [place] in past 30 days?: No Contact w/someone who lives/traveled outside [place] past 30 days?: No Exposure to someone with infectious disease in past 14 days?: No Do you have a fever (greater than 100.4 F or 38 C)?: No Have you tested positive for COVID-19: No Exposed to someone with COVID-19 in past 14 days?: No Do you have a sore throat?: No Do you have a cough?: No Do you have any weakness?: No Do you have any diarrhea?: No Are you experiencing any unusual bleeding?: No Do you have any muscle aches/pain?: No Do you have any abdominal pain?: No Are you experiencing loss of taste or smell?: No Other Medical History Have you received the Flu Vaccine for this season: Yes Have you received the Pneumonia Vaccine: No ROS Obtained: Yes All systems reviewed & no additional complaints except as documented Physical Exam General General appearance: alert and in no apparent distress Head Head exam: atraumatic and normocephalic Eye Eye exam: Present normal appearance, PERRL and EOMI ENT ENT exam: Present normal external ear exam; Absent normal oropharynx (Extremely poor dentition, loose mandibular incisor noted, erythema and tenderness noted, no fluctuant lesion) Neck Neck exam: Present normal inspection and full ROM Chest Chest inspection: Present normal inspection and symmetric chest wall rise; Absent tenderness Respiratory Respiratory exam: Present normal lung sounds bilaterally; Absent respiratory distress Cardiovascular Cardiovascular exam: Present regular rate and normal rhythm Abdominal Exam Abdominal exam: Present soft; Absent distention, tenderness or guarding Extremities Exam Extremities exam: Present normal inspection; Absent edema or joint swelling Back Exam Back exam: Present normal inspection; Absent tenderness Neurological Exam Neurological exam: Present alert and oriented X3; Absent motor sensory deficit Psychiatric Psychiatric exam: Present normal affect and normal mood Skin Skin exam: Present warm, dry and normal color Lymphatic Lymphatic Findings: no adenopathy Medical Decision Making Medical Records Medical records reviewed: Yes I reviewed the patient's medical records. Screening: Per USPSTF and CDC recommendations, given the prevalence of disease in our region, it is our hospital?s policy to screen for HIV and viral Hepatitis for all patients aged 18 and over and those with ongoing risk factors. Marc Inquiry Pt receiving controlled substance: No Marc was queried for this patient: No Vital Signs: 07/30/24 05:27 Temperature 97.6 F Temperature Source Oral Pulse Rate [Radial] 82 Respiratory Rate 14 Blood Pressure [Right Arm] 124/70 Blood Pressure Mean [Right Arm] 88 Blood Pressure Position [Right Arm] Sitting 02 Sat by Pulse Oximetry 98 Oxygen Delivery Method Room Air Lab Data Lab results reviewed: Yes I reviewed the patient's lab results. Orders (Tests/Meds): ED MEDICATIONS Generic Name Dose Route Start Last Admin Trade Name Freisidoro PRN Reason Stop Dose Admin Clindamycin HCl 450 mg 07/30/24 06:00 Clindamycin 150mg Capsule PO 07/30/24 06:01 ONCE ONE Lidocaine HCl 15 ml 07/30/24 05:57 Lidocaine 2% Viscous Josselyn 15ml Udc PO 07/30/24 05:58 ONCE ONE Medical Decision Narrative: 69-year-old female with history of Broussard, depression, IBS presents for 1 day of mandibular anterior left sided dental pain, redness. History was obtained via interactive discussion with patient. On arrival, patient is [afebrile, hemodynamically stable, satting appropriately, alert, oriented x4, GCS 15], moving all extremities spontaneously. Full physical exam performed and significant for extremely poor dentition as documented above Differential includes but is not limited to pulpitis, dental fracture, periodontal disease, abscess, cellulitis. Patient was given clindamycin and dental balls for symptomatic management and correction of underlying abnormalities. Patient has a penicillin allergy. She was discharged in stable condition and plans to see dentistry today. Prescription for clindamycin sent to her pharmacy. Procedures Risk/Benefits of Procedure(s) Were Explained: Yes Critical Care Critical Care Time Critical Care Time: No
[2024-07-30] MEDS: CLINDAMYCIN 150MG CAPSULE 450 MG PO (06:05)
[2024-07-30] MEDS: LIDOCAINE 2% VISCOUS SOL 15ML UDC 15 ML PO (06:06)
[2024-07-30 06:10] VITALS: BP 124/70; PULSE 82; RESP 17; TEMP 36.4; O2SAT 99
== END 2024-07-30 06:14 | disposition home or self-care (01) ==
PROVIDERS: Emergency Provider Emergency Medicine; PCP Nurse Practitioner Family
DX: K04.7 Periapical abscess without sinus (principal)
CPT/HCPCS: 99283

== ENCOUNTER 2025-03-28 11:50 | Outpatient (CLI) | payer MEDICARE, SELFPAY ==
--- NOTE | 2025-03-28 11:53 | XR_ITS ---
FINAL REPORT CLINICAL HISTORY: calcaneus area pain, worse when walking FINDINGS: LEFT FOOT Three views of the left foot demonstrate no acute fracture or dislocation. The visualized joint spaces are normally aligned. There is moderate plantar spur. The soft tissues are unremarkable. IMPRESSION: No acute bony abnormality. Reviewed, Interpreted and Dictated by Juan Carlos Beckwith MD Transcribed by Reyna Kwok Authenticated and [facility]
[2025-03-28 12:23] LABS: Hematocrit 40.4 % (37.0-47.0); Hemoglobin 14.2 g/dL (12.2-16.2); Immature Granulocytes % 0.5 %; Mean Corpuscular HGB Conc 35.1 g/dL (31.8-35.4); Mean Corpuscular Hemoglobin 30.9 pg (27.0-31.2); Mean Corpuscular Volume 88.0 fl (81-99); Nucleated Red Blood Cells % 0 %; Platelet Count 256 K/mm3 (142-424); Red Blood Count 4.59 M/mm3 (4.20-5.40); Red Cell Distribution Width-SD 39.1 fL; White Blood Count 8.1 K/mm3 (4.8-10.8)
[2025-03-28 13:35] LABS: Alanine Aminotransferase 47 U/L (12-78); Albumin Level 4.6 g/dl (3.5-5.0); Albumin/Globulin Ratio 1.7 (1.1-1.8); Alkaline Phosphatase 110 U/L (38-126); Amylase 56 U/L (30-110); Anion Gap 14.8 mEq/L (5-15); Aspartate Amino Transferase 48 U/L (14-36); Bilirubin,Total 1.0 mg/dl (0.2-1.3); Blood Urea Nitrogen 12 mg/dl (7-17); Calcium 9.8 mg/dl (8.4-10.2); Carbon Dioxide 24 mmol/L (22.0-30.0); Chloride 102 mmol/L (98-107); Creatinine,Serum 0.80 mg/dl (0.52-1.04); Estimated Glomerular Filt Rate 71 ml/min (>60); GFR (African American) 86 ML/MIN (>60); Globulin 2.7 g/dL (1.3-3.2); Glucose 101 mg/dl (74-100); Lipase 91 U/L (23-300); Potassium 3.8 mmoL/L (3.5-5.1); Sodium 137 mmol/L (136-145); Total Protein,Serum 7.3 g/dl (6.3-8.2)
[2025-03-28 15:53] LABS: Coronavirus 19, PCR Not Detected (NotDetected); Influenza A, PCR Not Detected (NotDetected); Influenza B, PCR Not Detected (NotDetected)
== END 2025-03-28 23:59 | disposition home or self-care (01) ==
LOC: LAB 11:50
PROVIDERS: PCP Nurse Practitioner Family; Visit Provider Nurse Practitioner Family
DX: M79.672 Pain in left foot (principal); R50.9 Fever, unspecified; R11.10 Vomiting, unspecified
CPT/HCPCS: 36415; 73630; 80053; 82150; 83013; 83014; 83690; 85025; 87631

== ENCOUNTER 2025-03-31 10:09 | Outpatient (CLI) | payer MEDICARE, SELFPAY ==
--- NOTE | 2025-03-31 10:00 | US_ITS ---
FINAL REPORT CLINICAL HISTORY: vomiting, upper abd pain, fever COMPARISON: None FINDINGS: Sonographic images of the abdomen were obtained. There is fatty infiltration of the liver. The gallbladder is surgically absent. There is no evidence of biliary ductal dilatation. The common bile duct measures 7.8 mm, which is within normal limits post cholecystectomy. The pancreas is not well-visualized secondary to overlying bowel gas. The spleen size is normal. The right kidney measures 10.3 in length. The left kidney measures 9.3 in length. There is normal renal echogenicity. There is no evidence of hydronephrosis. The aorta has an unremarkable appearance. Limited images of the inferior vena cava are unremarkable. IMPRESSION: Prior cholecystectomy. Fatty infiltration of the liver. Pancreas not well-visualized secondary to overlying bowel gas. Reviewed, Interpreted and Dictated by Juan Carlos Beckwith MD Transcribed by Nette Harris Authenticated and [facility]
== END 2025-03-31 23:59 | disposition home or self-care (01) ==
LOC: RAD 10:09
PROVIDERS: PCP Nurse Practitioner Family; Visit Provider Nurse Practitioner Family
DX: K76.0 Fatty (change of) liver, not elsewhere classified (principal); R10.10 Upper abdominal pain, unspecified; R50.9 Fever, unspecified; R11.10 Vomiting, unspecified; Z90.49 Acquired absence of other specified parts of digestive tract
CPT/HCPCS: 76700

== ENCOUNTER 2025-04-01 10:43 | Outpatient (RCR) | payer MEDICARE, SELFPAY | END 2025-04-01 23:59 | disposition home or self-care (01) | LOC: PT 10:43 | PROVIDERS: PCP Nurse Practitioner Family; Visit Provider Nurse Practitioner Family | DX: M77.32 Calcaneal spur, left foot (principal) | CPT/HCPCS: 97760 ==